=== PATIENT | male | born 1955 | race Caucasian/White ===

== ENCOUNTER 2017-01-24 07:18 | Emergency (ER) | payer OTHER ==
[2017-01-24] VITALS (7 sets, daily range): BP systolic 108–137; BP diastolic 61–71; PULSE 70–107; RESP 19–20; TEMP 97.8–98.1; O2SAT 98
[~2017-01-24] VITALS: Ht 182.9 cm; Wt 90.0 kg
[~2017-01-24 07:18] MED LIST: AMLO2.5T PO; ATOR20TA PO; ECOT81TA2 PO; FLON0.053 EACH NARE; GLIP5TAB8 PO; LIPI20TA PO; METO25 PO; MULTLIQ PO; NITR0.4S SL; SITA50TA4 PO; TRIBTAB3; ULTR50TA PO
[2017-01-24] MEDS ORDERED: ACETAMINOPHEN 500 MG CPLT PO ONE (07:30)
[2017-01-24] MEDS ORDERED: ASPIRIN 81 MG CHEW TAB PO ONE (07:30)
[2017-01-24] MEDS ORDERED: SODIUM CHLORIDE 0.9% FLUSH 10 ML FLUSH IVF PRN (07:30)
--- NOTE | 2017-01-24 07:37 | PD ---
HPI Chief Complaint: Chest Pain Time Seen by Provider: 07:30 Travel History International Travel<30 days: No Contact w/Intl Traveler<30days: No Traveled to known affect area: No History of Present Illness HPI Patient is a 61-year-old male with history of HTN, HLD, DM, CAD status post 3 vessel CABG approximately 2 years ago here with complaint of chest pain. Patient states he woke this morning at 6 AM at his usual time with left-sided substernal, inframammary chest pressure. No radiation. Some slight shortness of breath. No lightheadedness, but does have a mild headache, slight nausea. Patient took nitroglycerin 1 at home and states that this seemed to bring the headache gone. Patient has not taken any aspirin prior to arrival. He has not had a cardiac catheter since his CABG 3 years ago, but did reportedly have a stress test just this past Thursday01/20/[address] official [address] Stephen. Patient does not know the results of this, but was told by office staff that it was normal. PFSH Past Medical History Anxiety: No Depression: No Cancer: No Cardiovascular Problems: Yes High Cholesterol: Yes Diabetes: Yes Patient Takes Glucophage: No Diminished Hearing: No Endocrine: Yes GERD: No Genitourinary: No Hiatal Hernia: No Hypertension: Yes Immune Disorder: No Musculoskeletal: No Neurologic: No Psychiatric: No Reproductive: No Respiratory: No Ulcer: No Past Surgical History Coronary Artery Bypass Graft: Yes Tonsillectomy: Yes (AGE 5) Social History Alcohol Use: No (OCC BEER) Tobacco Use: No (QUIT OVER 20 YRS AGO) Substance Use: No Allergies-Medications (Allergen,Severity, Reaction): Coded Allergies: No Known Allergies (Verified , 04/02/15) Uncoded Allergies: ENVIRONMENTAL (Allergy, Intermediate, 12/10/08) Reported Meds & Prescriptions Reported Meds & Active Scripts Active Reported Invokana (Canagliflozin) 300 Mg Tab 300 Mg PO DAILY Take before 1st meal of day. Atorvastatin (Atorvastatin Calcium) 80 Mg Tab 80 Mg PO HS Metoprolol Tartrate 25 Mg Tab 25 Mg PO BID Lisinopril 20 Mg Tab 20 Mg PO DAILY Nitrostat SL (Nitroglycerin) 0.4 Mg Subl 0.4 Mg SL ONCE Janumet Xr (Sitagliptin-Metformin ER) 50-1,000 Mg Tab 1 Tab PO DAILY Imiquimod 5 % Cre Trulicity Inj (Dulaglutide Inj) 1.5 Mg/0.5 Ml Pen 1.5 Mg SQ Q7D Review of Systems Except as stated in HPI: all other systems reviewed are Neg Physical Exam Narrative GENERAL: Well-appearing male in no acute distress SKIN: Focused skin assessment warm/dry. Midline sternotomy scar HEAD: Normocephalic. EYES: No scleral icterus. No injection or drainage. ENT: Mucous membranes pink and moist. NECK: Supple CARDIOVASCULAR: Regular rate and rhythm. No murmur appreciated. No reproducible tenderness to palpation in the chest wall RESPIRATORY: No accessory muscle use. Clear to auscultation. Breath sounds equal bilaterally. GASTROINTESTINAL: Abdomen soft, non-tender, nondistended. MUSCULOSKELETAL: Trace BLE edema, chronic per patient NEUROLOGICAL: Awake and alert. Normal speech. PSYCHIATRIC: Appropriate mood and affect; insight and judgment normal. Data Data Last Documented VS Vital Signs Date Time Temp Pulse Resp B/P Pulse Ox O2 Delivery O2 Flow Rate FiO2 01/24/17 09:26 70 109/61 01/24/17 07:35 19 01/24/17 07:32 Nasal Cannula 2 01/24/17 07:24 98.1 01/24/17 07:21 98 Orders Electrocardiogram (01/24/17 07:30) Basic Metabolic Panel (Bmp) (01/24/17 07:30) Ckmb (Isoenzyme) Profile (01/24/17 07:30) Complete Blood Count With Diff (01/24/17 07:30) Magnesium (Mg) (01/24/17 07:30) Prothrombin Time / Inr (Pt) (01/24/17 07:30) Act Partial Throm Time (Ptt) (01/24/17 07:30) Troponin I (01/24/17 07:30) Chest, Single Ap (01/24/17 07:30) Ecg Monitoring (01/24/17 07:30) Bilateral Bp Monitoring (01/24/17 07:30) Iv Access Insert/Monitor (01/24/17 07:30) Oximetry (01/24/17 07:30) Aspirin Chew (Aspirin Chew) (01/24/17 07:30) Sodium Chloride 0.9% Flush (Ns Flush) (01/24/17 07:30) Nitroglycerin Sl (Nitrostat Sl) (01/24/17 07:30) Acetaminophen (Tylenol) (01/24/17 07:30) CKMB (01/24/17 07:35) CKMB% (01/24/17 07:35) Electrocardiogram (01/24/17 09:35) Ckmb (Isoenzyme) Profile (01/24/17 09:35) Troponin I (01/24/17 09:35) Labs Laboratory Tests Test 01/24/17 01/24/17 01/24/17 07:35 08:25 09:15 White Blood Count 9.8 TH/MM3 Red Blood Count 4.80 MIL/MM3 Hemoglobin 13.8 GM/DL Hematocrit 40.7 % Mean Corpuscular Volume 84.8 FL Mean Corpuscular Hemoglobin 28.8 PG Mean Corpuscular Hemoglobin 34.0 % Concent Red Cell Distribution Width 14.0 % Platelet Count 233 TH/MM3 Mean Platelet Volume 8.8 FL Neutrophils (%) (Auto) 59.8 % Lymphocytes (%) (Auto) 24.7 % Monocytes (%) (Auto) 7.9 % Eosinophils (%) (Auto) 6.7 % Basophils (%) (Auto) 0.9 % Neutrophils # (Auto) 5.9 TH/MM3 Lymphocytes # (Auto) 2.4 TH/MM3 Monocytes # (Auto) 0.8 TH/MM3 Eosinophils # (Auto) 0.7 TH/MM3 Basophils # (Auto) 0.1 TH/MM3 CBC Comment DIFF FINAL Differential Comment Sodium Level 139 MEQ/L Potassium Level 4.8 MEQ/L Chloride Level 105 MEQ/L Carbon Dioxide Level 24.5 MEQ/L Anion Gap 10 MEQ/L Blood Urea Nitrogen 18 MG/DL Creatinine 0.99 MG/DL Estimat Glomerular Filtration 77 ML/MIN Rate Random Glucose 106 MG/DL Calcium Level 8.7 MG/DL Magnesium Level 1.8 MG/DL Total Creatine Kinase 267 U/L 174 U/L Creatine Kinase MB 2.8 NG/ML Troponin I LESS THAN 0.02 LESS THAN 0.02 NG/ML NG/ML Prothrombin Time 10.6 SEC Prothromb Time International 1.0 RATIO Ratio Activated Partial 25.4 SEC Thromboplast Time MDM Medical Decision Making Medical Screen Exam Complete: Yes Emergency Medical Condition: Yes Medical Record Reviewed: Yes Differential Diagnosis 61-year-old male with history of HTN, HLD, DM, CAD status post 3 vessel CABG approximately 2 years ago here with complaint of chest pain. Differential includes ACS, stable angina, atypical chest pain, anxiety, GERD, and less likely PE or dissection. Narrative Course Patient placed on monitor, IV established and blood obtained. A twelve-lead EKG shows sinus rhythm, Q waves in anteroseptal leads V1 through V3, small Q waves in 3, aVF. Comparing today's EKG with his most recent EKG from January 2015, these findings are unchanged. Patient given aspirin, nitroglycerin, Tylenol for headache. CBC, BMP, magnesium, CK-MB, troponin, coags obtained and unremarkable. Portable chest x-ray obtained that by my read shows no acute abnormalities. I spoke with Dr. Ho, who is on-call for patient's building official Dr. Stephen. She agrees given his negative stress tests, which she confirmed, just 5 days ago to obtain repeat 2 hour EKG and cardiac enzymes and discharge to home if negative. Repeat EKG, troponin is unchanged. Diagnosis Primary Impression: Atypical chest pain Referrals: Scooby Nunez MD 2 days Call on Thursday for follow-up appointment Additional Instructions: Follow-up with Dr. Nunez on Thursday for follow-up appointment. Med/Other Pt SpecificInfo: No Change to Meds Disposition: 01 DISCHARGE HOME Condition: Stable Judith Mckeon MD January 24, 2017 07:37
[2017-01-24] MEDS ORDERED: ATOR1TAB18 PO (07:39)
[2017-01-24] MEDS ORDERED: NITR0.4S SL (07:39)
[2017-01-24] MEDS ORDERED: CANA300T PO (07:39)
[2017-01-24] MEDS ORDERED: IMIQ5CRE (07:39)
[2017-01-24] MEDS ORDERED: DULA0.5I SQ (07:39)
[2017-01-24] MEDS ORDERED: LISI-515 PO (07:39)
[2017-01-24] MEDS ORDERED: METO25TA3 PO (07:39)
[2017-01-24] MEDS ORDERED: SITA50TA4 PO (07:39)
[2017-01-24 07:49] LABS: AUTOMATED NEUTROPHIL # 5.9 TH/MM3 (1.8-7.7); BASOPHIL # 0.1 TH/MM3 (0-0.2); BASOPHIL % 0.9 % (0.0-2.0); EOSINOPHIL # 0.7 TH/MM3 (0-0.4); EOSINOPHIL % 6.7 % (0.0-4.0); HEMATOCRIT 40.7 % (39.0-51.0); HEMO FLAGS DIFF FINAL; LYMPH % 24.7 % (9.0-44.0); LYMPHOCYTE # 2.4 TH/MM3 (1.0-4.8); MEAN CELL VOLUME 84.8 FL (80.0-100.0); MEAN CORPUSCULAR HEMOGLOBIN 28.8 PG (27.0-34.0); MONO % 7.9 % (0.0-8.0); NEUT % 59.8 % (16.0-70.0); PLATELET COUNT 233 TH/MM3 (150-450); WHITE BLOOD COUNT 9.8 TH/MM3 (4.0-11.0)
[2017-01-24] MEDS: NITROGLYCERIN 0.4 MG SL 25 TABS/BTL SL SCH ×3 (07:56→08:27)
--- NOTE | 2017-01-24 08:00 | RADRPT ---
EXAM DATE/TIME: 01/24/2017 07:40 [facility] COMPARISON: CHEST SINGLE AP, January 07, 2015, 12:11. INDICATIONS : Chest Pain MEDICAL HISTORY : Myocardial infarction. SURGICAL HISTORY : CABG. ENCOUNTER: Initial ACUITY: 1 day PAIN SCORE: 6/10 LOCATION: Bilateral chest FINDINGS: Single AP view of the chest. Median sternotomy wires are present. The lungs are clear. Cardiomediasti nal silhouette within normal limits. No evidence of pleural effusion or pneumothorax. CONCLUSION: No acute cardiopulmonary disease identified. Gadiel Galindo MD on January 24, 2017 at 7:54 Board Certified Radiologist. This report was verified electronically.
[2017-01-24 08:15] LABS: ANION GAP 10 MEQ/L (5-15); BICARBONATE 24.5 MEQ/L (21.0-32.0); BLOOD UREA NITROGEN 18 MG/DL (7-18); CHLORIDE 105 MEQ/L (98-107); CREATINE KINASE 267 U/L (39-308); GLOMERULAR FILTRATION RATE 77 ML/MIN (>89); MAGNESIUM 1.8 MG/DL (1.5-2.5); POTASSIUM 4.8 MEQ/L (3.5-5.1); SODIUM (NA) 139 MEQ/L (136-145)
[2017-01-24 08:27] LABS: CKMB 2.8 NG/ML (0.5-3.6)
[2017-01-24 08:55] LABS: APTT (PATIENT) 25.4 SEC (24.3-30.1); PROTHROMBIN TIME - PATIENT 10.6 SEC (9.8-11.6)
[2017-01-24 09:54] LABS: CREATINE KINASE 174 U/L (39-308)
--- NOTE | 2017-01-24 16:07 | EKG ---
Date Performed: 01/24/2017 Time Performed: 07:28:15 PTAGE: 61 years EKG: Sinus rhythm POSSIBLE RIGHT VENTRICULAR HYPERTROPHY POSSIBLE INFERIOR MYOCARDIAL INFARCTION ANTEROSEPTAL MYOCARDI AL INFARCTION Compared to previous tracing, the patient now has septal Q waves potentially consistent with septal [place], age indeterminate ABNORMAL ECG NO PREVIOUS TRACING DOCTOR: Bertha Ho Interpretating Date/Time 01/24/2017 16:05:45
--- NOTE | 2017-01-24 16:07 | EKG ---
Date Performed: 01/24/2017 Time Performed: 09:12:00 PTAGE: 61 years EKG: Sinus rhythm MARKED RIGHT AXIS DEVIATION PROBABLE INFERIOR MYOCARDIAL INFARCTION ANTEROSEPTAL MYOCARDIAL INFARCTI ON Compared to prior tracing no significant change ABNORMAL ECG INTERPRETATION BASED ON A DEFAULT AGE OF 40 YEARS PREVIOUS TRACING : 01/05/2015 05.00 DOCTOR: Bertha Ho Interpretating Date/Time 01/24/2017 16:05:54
== END 2017-01-24 10:53 | disposition home or self-care (01) ==
LOC: NEPC 07:18
DX: R07.89 Other chest pain (principal); I10 Essential (primary) hypertension; E11.9 Type 2 diabetes mellitus without complications; Z79.84 Long term (current) use of oral hypoglycemic drugs; Z79.899 Other long term (current) drug therapy; Z87.891 Personal history of nicotine dependence; Z95.1 Presence of aortocoronary bypass graft
CPT/HCPCS: 71010; 80048; 82550; 82552; 83735; 84484; 85025; 85610; 85730; 93005

== ENCOUNTER 2017-08-05 06:35 | Day surgery (SDC) | payer OTHER ==
[~2017-08-05] VITALS: Ht 182.9 cm; Wt 94.4 kg
[2017-08-05] VITALS (9 sets, daily range): BP systolic 128–144; BP diastolic 75–84; PULSE 67–88; RESP 16–18; TEMP 97.8–98.6; O2SAT 95–97
[~2017-08-05 06:35] MED LIST changes: -AMLO2.5T PO; -ATOR20TA PO; +ATOR80TA45 PO; +CANA300T PO; +DULA0.5I SQ; -ECOT81TA2 PO; -FLON0.053 EACH NARE; -GLIP5TAB8 PO; +IMIQ5CRE; -LIPI20TA PO; +LISI-515 PO; -METO25 PO; +METO25TA3 PO; -MULTLIQ PO; -TRIBTAB3; -ULTR50TA PO
[2017-08-05] MEDS ORDERED: IOHEXOL 350 MG/ML 50 ML BTL (for Cath Lab) OTHER ONE (06:36)
[2017-08-05] MEDS ORDERED: IOHEXOL 350 MG/ML 100 ML BTL (for Cath Lab) OTHER ONE (06:36)
[2017-08-05] MEDS: NS 1000P @30 MLS/HR (KVO) IV SCH (07:00)
[2017-08-05] MEDS ORDERED: MONT10TA4 PO (07:32)
[2017-08-05] MEDS ORDERED: LOSA25TA PO (07:32)
[2017-08-05] MEDS ORDERED: ASPI81TA23 PO (07:32)
[2017-08-05] MEDS ORDERED: MELO15TA20 PO (07:32)
[2017-08-05 07:47] LABS: AUTOMATED NEUTROPHIL # 4.7 TH/MM3 (1.8-7.7); BASOPHIL # 0.1 TH/MM3 (0-0.2); BASOPHIL % 1.3 % (0.0-2.0); EOSINOPHIL # 0.4 TH/MM3 (0-0.4); EOSINOPHIL % 4.5 % (0.0-4.0); HEMATOCRIT 43.5 % (39.0-51.0); HEMO FLAGS DIFF FINAL; LYMPH % 27.2 % (9.0-44.0); LYMPHOCYTE # 2.2 TH/MM3 (1.0-4.8); MEAN CELL VOLUME 86.5 FL (80.0-100.0); MEAN CORPUSCULAR HEMOGLOBIN 28.6 PG (27.0-34.0); MEAN CORPUSCULAR HGB CONC 33.1 % (32.0-36.0); MONO % 8.7 % (0.0-8.0); NEUT % 58.3 % (16.0-70.0); PLATELET COUNT 205 TH/MM3 (150-450); RED BLOOD COUNT 5.03 MIL/MM3 (4.50-5.90); RED CELL DISTRIBUTION WIDTH 14.2 % (11.6-17.2); WHITE BLOOD COUNT 8.1 TH/MM3 (4.0-11.0)
[2017-08-05 07:55] LABS: APTT (PATIENT) 26.8 SEC (24.3-30.1); INTERNATIONAL NORMALIZED RATIO 0.9 RATIO; PROTHROMBIN TIME - PATIENT 10.3 SEC (9.8-11.6)
[2017-08-05] MEDS ORDERED: HEPARIN-NS/PF INJ 1,000 ML ONE ×2 (08:19→09:32)
[2017-08-05] MEDS ORDERED: MIDAZOLAM HCL 2 MG/2 ML VIAL ONE (08:19)
[2017-08-05 08:20] LABS: BICARBONATE 28.7 MEQ/L (21.0-32.0); POTASSIUM 4.1 MEQ/L (3.5-5.1)
[2017-08-05] MEDS ORDERED: HEPARIN SODIUM - IV 10,000 UNITS/10 ML VIAL ONE (08:48)
[2017-08-05] MEDS ORDERED: NITROGLYCERIN INJ 5 ML ONE (08:48)
[2017-08-05] MEDS ORDERED: TICAGRELOR 90 MG TAB PO ONE (09:49)
--- NOTE | 2017-08-05 10:25 | CATHPROC ---
[employer] HIS Report Study Information Study Number Admission Scheduled Start Study Start [id number] Aug 05 2017 6:35AM 08/05/2017 Aug 05 2017 8:15AM [place] Service Cardiac Catheterization Admit Source Facility Department Other [facility] Physician and Clinical Staff Initial Rosales Mars Cutter V Groove Latisha Storm,PARMINDER Recorder Mac Nice RCIS(BS) Scrub Douglas RodriguezRT(R) Procedures Performed Procedure Location (Site) Vessel Name Coronary Angiograms LCA Left Coronary Coronary Angiograms RCA Right Coronary Coronary Angiograms CHIN-LAD Left Coronary Coronary Angiograms SVG-PDA Right Coronary Coronary Angiograms Gft. 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 FR 5 [id number] *[id number] Used MICROPUNCTURE, STIFFENED [id number] *[id number] 534-520T *[id number] 538-417 *[id number] 534-521T *[id number] *[id number] ENDOVASCULAR WIRE, SPIDERFX 4.0 X [id number] 09:20 40 X 320CM Used COMPANY 320/190CM *[id number] 08:23 Unified Office INDUSTRIES PACK, CCL CUSTOM * Used *[id number] 09:22 MEDTRONIC BALLOON, 2.0 X 10MM EUPHORA 10MM Used *[id number] BALLOON, 2.75 X 15MM NC [id number] 09:49 MEDTRONIC 15MM Used EUPHORA *[id number] 08:55 MEDTRONIC IM DXTERITY CATHETER FR 5 [id number] Used 09:43 MEDTRONIC STENT, 2.5 22MM KAL 2.5 22MM [id number] Used [id number] 09:28 Cash Check Card MEDICAL 30 REYNA INDEFLATOR Used *[id number] 08:23 ReTenant WIRE, 3MMJ .035 180CM 180CM Used *[id number] 08:55 Cash Check Card MEDICAL WIRE, EXCHANGE 260CM 3MMJ 260CM Used *[id number] 08:23 NAMIC MANIFOLD, 4 PORT * Used *[id number] 08:23 NYCOMED OMNIPAQUE, 350 MG, 150ML 150ML [id number] Used [id number] 08:23 GRAFF MEDICAL BLANKET,WARM AIR CCL * Used *[id number] 08:40 TERUMO MEDICAL SHEATH, FR5 TERUMO (10CM) FR 5 Used *[id number] 09:14 TERUMO MEDICAL SHEATH, FR6 TERUMO (10CM) FR 6 Used *[id number] Equipment Model, Serial, Lot Number and Expiration Data Description Model Number Serial Number Lot Number Expiration Date STENT, 2.5 22MM KAL [id number] 05-22-2019 History: Current Medications Medication Dosage/Unit Route Frequency Last Date/Time Taken ASA Beta Maximino Statins (any) History: Allergies Allergy Reaction No Known Allergies ENVIRONMENTAL History: Risk Factors Family History of Hypertension Dyslipidemia Previous [facility] Previous Heart Failure Premature CAD Yes Yes No No No Prior Valve Prior PCI Prior CABG Prior CABGDate Surgery No No Yes 09/07/2014 Cerebrovascular Peripheral Artery Chronic Lung On Dialysis Diabetes Disease Disease Disease No No No No No History: Symptoms/Diagnosis Selection Items Angina-unstable History: Stress Tests Stress or Imaging Studies Performed Yes Standard Exercise Stress Test No Stress Echo No Stress Test SPECT Stress Test SPECT Result Yes Negative Stress Test CMR No Cardiac CTA Coronary Calcium Score No No History: Other Current Smoker No Labs Hgb (g/dl) Hct (%) RBC (MIL/MM3) WBC (l/cumm) Platelets (thousands) 11.60-17.00 35.00-51.00 4.00-5.90 4.00-11.00 150.00-450.00 14.4 43.5 5 8.1 205 Glucose (mg/dl) BUN (mg/dl) Creatinine (mg/dl) BUN:Creatinine (1:x) 74.00-106.00 7.00-18.00 0.50-1.30 10.00-20.00 101 22 0.9 24.4 Na (meq/l) K (meq/l) 136.00-145.00 3.50-5.10 138 4.1 INR (PTT:PT) 0.90-1.10 0.9 CPK-MB (ng/ML) 0.50-3.60 Not Drawn Medication Medication Total Dose (Bolus/Oral) Medication Total Dosage/Unit 1% XYLOCAINE 20 mL BRILINTA 180 mg FENTANYL 125 mcg HEPARIN 7800 units NTG (IC) 700 mcg VERSED 1 mg Medications (Bolus/Oral) Medication Time Given Dosage/Unit Administered By Reason VERSED 08/05/2017 8:35:00 AM 0.5 mg Adamy, Latisha 0.5 mg VERSED given in lab by Latisha Storm RN in Left Antecubital via Peripheral IV. Ordered by Rosales Funez FENTANYL 08/05/2017 8:36:16 AM 50 mcg Adamy, Latisha 50 mcg FENTANYL given in lab by Latisha Storm RN in Left Antecubital via Peripheral IV. Ordered by Rosales Gallardo 1% XYLOCAINE 08/05/2017 8:38:20 AM 20 mL Rosales Gallardo 20 mL 1% XYLOCAINE given in lab by Rosales Gallardo in Right Groin via Subcutaneous. Ordered by Rosales Mulligan FENTANYL 08/05/2017 8:56:02 AM 50 mcg Adamy, Latisha 50 mcg FENTANYL given in lab by Latisha Storm RN in Left Antecubital via Peripheral IV. Ordered by Rosales Gallardo HEPARIN 08/05/2017 9:15:42 AM 6800 units Emeterio, Latisha 6800 units HEPARIN given in lab by Latisha Storm RN in Left Antecubital via Peripheral IV. Ordered by Rosales Gallardo VERSED 08/05/2017 9:32:25 AM 0.5 mg Adamy, Latisha 0.5 mg VERSED given in lab by Latisha Storm RN in Left Antecubital via Peripheral IV. Ordered by Rosales Funez FENTANYL 08/05/2017 9:33:00 AM 25 mcg Adamy, Latisha 25 mcg FENTANYL given in lab by Latisha Storm RN in Left Antecubital via Peripheral IV. Ordered by Rosales Gallardo NTG (IC) 08/05/2017 9:38:54 AM 100 mcg Rosales Gallardo 100 mcg NTG (IC) given in lab by Rosales Gallardo via Intra-coronary. Ordered by Rosales Gallardo HEPARIN 08/05/2017 9:45:00 AM 1000 units Latisha Storm 1000 units HEPARIN given in lab by Latisha Storm, RN in Left Antecubital via Peripheral IV. Ordered by Rosales Gallardo NTG (IC) 08/05/2017 9:46:51 AM 200 mcg Rosales Gallardo 200 mcg NTG (IC) given in lab by Rosales Gallardo via Intra-coronary. Ordered by Rosales Gallardo NTG (IC) 08/05/2017 9:53:35 AM 200 mcg Rosales Gallardo 200 mcg NTG (IC) given in lab by Rosales Gallardo via Intra-coronary. Ordered by Rosales Gallardo NTG (IC) 08/05/2017 9:57:00 AM 200 mcg Rosales Gallardo 200 mcg NTG (IC) given in lab by Rosales Gallardo via Intra-coronary. Ordered by Rosales Gallardo. BRILINTA 08/05/2017 9:58:23 AM 180 mg Latisha Storm 180 mg BRILINTA given in lab by Latisha Storm, PARMINDER via Oral. Ordered by Rosales Gallardo Medication (Drip) Medication Time Given Dosage/Unit Concentration/Unit Diluent (ml) Solution IV Solutions 08/05/2017 8:29:36 AM 0 mL (IV) 500 NaCl .9 Patient arrived on IV Solutions in Left Antecubital via Peripheral IV. Pump/Drip Flow = 20 ml/hr usin g NaCl .9. Ordered by Rosales Gallardo Initial Case Assessment Cardiovascular HR Rhythm NIBP Chest Pain 65 SR W AV BLOCK 129/74 0 Edema Present Skin color Skin None Normal Warm Dry Circulatory - Right Pulses Dorsalis Pedis Femoral 2 2 Scale (0,1,2,3,4,d) Circulatory - Left Pulses Dorsalis Pedis Femoral 2 2 Scale (0,1,2,3,4,d) Circulatory - Lower Extremities Color Lower Right Color Lower Left Normal Normal Neurological State Oriented to time-place- Alert Moves all extremities person Respiration - General Respiration Rate SpO2 (%) (B/min) 8 97 Final Case Assessment Cardiovascular HR Rhythm NIBP Chest Pain 66 SR W AV BLOCK 132/84 0 Edema Present Skin color Skin None Normal Warm Dry Circulatory - Right Pulses Dorsalis Pedis Femoral 2 2 Scale (0,1,2,3,4,d) Circulatory - Left Pulses Dorsalis Pedis Femoral 2 2 Scale (0,1,2,3,4,d) Circulatory - Lower Extremities Color Lower Right Color Lower Left Normal Normal Neurological State Oriented to time-place- Alert Moves all extremities person Respiration - General Respiration Rate SpO2 (%) (B/min) 8 97 Chronological Log Time Study Chronological Log 8:15:10 Patient arrived via Bed. 8:15:11 Patient Name, D.O.B, / Armband Verified By R.N. 8:15:12 Consent signed by the physician and the patient and verified by the [facility] staff. 8:15:12 Pre-op and post- op instructions given; patient acknowledges understanding of instructions. 8:15:14 Verbal Stimulation=2 Physical Stimulation=2 Airway=2 Respiration=2 TOTAL=8. (0=absent, 1=li mited, 2=present) 8:15:16 Patient has been NPO for More than 6Hrs. 8:15:18 Skin Breakdown- 8:15:19 Patient Warmer Placed on the Table. Vitals capture started with the following parameters, Patient=Adult, Interval=5 min, Initial Pr kqtzxz=972 mmHg, 8:15:22 Deflation Rate=5 mmHg, Cuff placed on Left Arm 8:16:01 DVHA=865/78 mmhg, SpO2=96.0 %, Pain=0, Elian=10, Michelle=2 8:19:55 Reference ECG taken 8:20:58 HR=67 bpm, IBNG=234/79 mmhg, SpO2=95.0 %, Resp=10 B/min, Pain=0, Elian=10, Michelle=2 8:25:59 HR=66 bpm, RVWS=262/74 mmhg, SpO2=97.0 %, Resp=8 B/min, Pain=0, Elian=10, Michelle=2 8:27:59 Pressure channel 1 zeroed. 8:28:26 Bilateral groins prepped with 2% chlorhexidine, and draped after a 3 minute waiting time. 8:29:35 A # 20 IV was noted in the Antecubital (left). Grade = 0 Patient arrived on IV Solutions in Left Antecubital via Peripheral IV. Pump/Drip Flow = 20 ml/hr using NaCl .9. Ordered 8::36 by Rosales Gallardo 8::38 History and physical on the chart or being dictated. Assessment: Initial Case, HR=65 BPM, Rhythm=SR W AV BLOCK, YOLM=777/74 mmhg, Chest Pain=0, Edema =None, Color=Normal, Skin = Warm, Dry Right Pulses: Patrick Ped=2, Femoral=2 Left Pulses: Patrick Ped=2, Femoral=2 8:29:39 Lower Right Extremities: Color=Normal Lower Left Extremities: Color=Normal Neurological: State=Alert, Ox3, MARIO Respiration: Resp=8 B/min, SpO2=97 % 8:30:30 MD paged 8:31:00 HR=63 bpm, ZXSD=453/74 mmhg, SpO2=97.0 %, Resp=9 B/min, Pain=0, Elian=10, Michelle=2 8:33:00 MD arrived. 0.5 mg VERSED given in lab by Latisha Storm, RN in Left Antecubital via Peripheral IV. Ordered by Rosales Gallardo 8:35:00 G. Time Out. Correct patient, correct procedure, correct physician, power injector not loaded with contrast with surgical 8:35:10 team present. Time Out Concurred by MD and individual staff in procedure. 8:35:27 Case Start 8:36:02 HR=68 bpm, XNZF=845/80 mmhg, SpO2=96.0 %, Resp=9 B/min, Pain=0, Elian=10, Michelle=2 50 mcg FENTANYL given in lab by Latisha Storm, RN in Left Antecubital via Peripheral IV. Order ed by Sami 8:36:16 Rosales Zapata. 20 mL 1% XYLOCAINE given in lab by Rosales Gallardo in Right Groin via Subcutaneous. Ordered by Sami 8:38:20 Rosales Zapata. 8:38:27 Access site was Right Femoral Artery. A INTRODUCER SET, MICROPUNCTURE, STIFFENED FR 5 was advanced into the Fem Art (right) using the 8:38:33 Percutaneous technique. 8:38:51 A SHEATH, FR5 TERUMO (10CM) FR 5 was exchanged in the Fem Art (right). This was necessary in order ~REASON~. Recorded Pressure: Ao, HR=69, Condition=Condition 1 8:39:49 (Aorta) Ao 132/71/93 8:40:03 An injection in the Fem Art (right) was made through the SHEATH, FR5 TERUMO (10CM) FR 5. A JR 4.0 INFINITI CATHETER FR 5 was advanced over a wire. OMNIPAQUE, 350 MG, 150ML 150ML was use d for 8:40:14 injections. 8:41:01 HR=68 bpm, YBNH=344/77 mmhg, SpO2=95.0 %, Resp=13 B/min, Pain=0, Elian=10, Michelle=2 Recorded Pressure: LV, HR=73, Condition=Condition 1 8:41:47 (Left Ventricle) LV 126/6/16 Recorded Pressure: LV, Ao, HR=60, Condition=Condition 1 8:42:06 (Left Ventricle) LV 127/7/17, (Aorta) Ao 121/52/91 8:42:22 The RCA was injected and visualized at various angles. OMNIPAQUE, 350 MG, 150ML 150ML used. Recorded Pressure: Ao, HR=68, Condition=Condition 1 8:42:37 (Aorta) Ao 127/78/100 8:45:58 HR=68 bpm, SIJT=158/79 mmhg, SpO2=95.0 %, Resp=9 B/min, Pain=0, Elian=10, Michelle=2 8:46:43 The SVG-PDA was injected and visualized at various angles. OMNIPAQUE, 350 MG, 150ML 150ML ed. 8:51:03 HR=66 bpm, MXFN=499/75 mmhg, SpO2=95.0 %, Resp=13 B/min, Pain=0, Elian=10, Michelle=2 8:52:34 The CHIN-LAD was injected and visualized at various angles. OMNIPAQUE, 350 MG, 150ML 150ML u sed. After removing the current catheter a IM DXTERITY CATHETER FR 5 was advanced over a WIRE, 3MMJ . 035 180CM 8:53:45 180CM. 50 mcg FENTANYL given in lab by Latisha Storm RN in Left Antecubital via Peripheral IV. Order ed by Sami, 8:56:02 Rosales Duvall 8:56:04 HR=68 bpm, HAMZ=741/75 mmhg, SpO2=96.0 %, Resp=14 B/min, Pain=0, Elian=10, Michelle=2 9:00:59 HR=65 bpm, SWJK=652/81 mmhg, SpO2=97.0 %, Resp=9 B/min, Pain=0, Elian=10, Michelle=2 After removing the current catheter a JL 4.0 INFINITI CATHETER FR 5 was advanced over a WIRE, EX CHANGE 260CM 9:02:00 3MMJ 260CM. After removing the current catheter a JL 4.5 INFINITI CATHETER FR 4 was advanced over a WIRE, 3M MJ .035 180CM 9:04:47 180CM. 9:05:00 The LCA was injected and visualized at various angles. OMNIPAQUE, 350 MG, 150ML 150ML used. 9:06:04 HR=64 bpm, PQXY=453/71 mmhg, SpO2=96.0 %, Resp=0 B/min, Pain=0, Elian=10, Michelle=2 After removing the current catheter a AL 1 INFINITI CATHETER FR 5 was advanced over a WIRE, 3MMJ .035 180CM 9:10:41 180CM. 9:11:07 HR=68 bpm, VVGN=450/76 mmhg, SpO2=96.0 %, Resp=13 B/min, Pain=0, Elian=10, Michelle=2 The SVG TO OM Gft. Stump 1 was injected and visualized at various angles. OMNIPAQUE, 350 MG, 150 ML 150ML 9:14:39 used. 9:15:00 Catheter was removed 6800 units HEPARIN given in lab by Latisha Storm, RN in Left Antecubital via Peripheral IV. Or dered by Sami, 9:15:42 Rosales Duvall A SHEATH, FR6 TERUMO (10CM) FR 6 was exchanged in the Fem Art (right). This was necessary in ord er to 9:15:56 accomodate a larger catheter. 9:16:04 HR=67 bpm, MOLR=044/70 mmhg, SpO2=98.0 %, Resp=18 B/min, Pain=0, Elian=10, Michelle=2 9:21:09 HR=65 bpm, YIJF=097/69 mmhg, SpO2=98.0 %, Resp=8 B/min, Pain=0, Elian=10, Michelle=2 A MPA-1 GUIDE CATHETER FR 6 was advanced over a wire. OMNIPAQUE, 350 MG, 150ML 150ML was used fo r 9:22:19 injections. 9:23:49 A WIRE, ASAHI PROWATER 180CM 180CM was inserted via Fem Art (right). 9:24:01 Interventional wire has crossed the lesion 9:24:32 Activated Clotting Time Drawn 9:26:06 HR=62 bpm, FPSI=933/68 mmhg, SpO2=99.0 %, Resp=8 B/min, Pain=0, Elian=10, Michelle=2 A BALLOON, 2.0 X 10MM EUPHORA 10MM was inserted over WIRE, ASAHI PROWATER 180CM 180CM via the Fe m Art 9::54 (right). A BALLOON, 2.0 X 10MM EUPHORA 10MM over a WIRE, ASAHI PROWATER 180CM 180CM in the OSTIUM OF THE SVG- 9:27:21 PDA was inflated using a 30 REYNA INDEFLATOR at 8 reyna for 10 sec. A BALLOON, 2.0 X 10MM EUPHORA 10MM over a WIRE, ASAHI PROWATER 180CM 180CM in the OSTIUM OF THE SVG- 9:28:20 PDA was inflated using a 30 REYNA INDEFLATOR at 8 reyna for 10 sec. A BALLOON, 2.0 X 10MM EUPHORA 10MM over a WIRE, ASAHI PROWATER 180CM 180CM in the OSTIUM OF THE SVG- 9:28:47 PDA was inflated using a 30 REYNA INDEFLATOR at 8 reyna for 10 sec. 9:29:58 ACT (Normal Range 90-180) = 272 9:30:40 Balloon Removed. 9::54 A WIRE, SPIDERFX 4.0 X 320/190CM 40 X 320CM was inserted via Fem Art (right). 9:31:05 HR=61 bpm, PXZV=537/81 mmhg, SpO2=98.0 %, Resp=15 B/min, Pain=0, Elian=10, Michelle=2 9:31:27 PROWATER Wire removed 0.5 mg VERSED given in lab by Latisha Storm, RN in Left Antecubital via Peripheral IV. Ordered by Rosales Gallardo 9:32:25 G. 25 mcg FENTANYL given in lab by Latisha Storm, RN in Left Antecubital via Peripheral IV. Order ed by Sami, 9:33:00 Rosales Duvall 9:36:04 HR=68 bpm, ZQOI=428/82 mmhg, SpO2=98.0 %, Resp=11 B/min, Pain=0, Elian=10, Michelle=2 A BALLOON, 2.0 X 10MM EUPHORA 10MM was inserted over WIRE, ASAHI PROWATER 180CM 180CM via the Fe m Art 9:37:40 (right). A BALLOON, 2.0 X 10MM EUPHORA 10MM over a WIRE, ASAHI PROWATER 180CM 180CM in the SVG-PDA was in flated 9:37:44 using a 30 REYNA INDEFLATOR at 14 reyna for 10 sec. 9:38:54 100 mcg NTG (IC) given in lab by Rosales Gallardo via Intra-coronary. Ordered by Rosales Gallardo. 9:41:05 HR=65 bpm, GRIZ=770/73 mmhg, SpO2=96.0 %, Resp=14 B/min, Pain=0, Elian=10, Michelle=2 9:42:46 Balloon Removed. A STENT, 2.5 22MM KAL 2.5 22MM was advanced through a MPA-1 GUIDE CATHETER FR 6 over a WIRE, A MONICA 9:44:00 PROWATER 180CM 180CM. 1000 units HEPARIN given in lab by Latisha Storm, PARMINDER in Left Antecubital via Peripheral IV. O rdered by Sami, 9:45:00 Rosales Zapata. A STENT, 2.5 22MM KAL 2.5 22MM was deployed using a 30 REYNA INDEFLATOR at 16 atmospheres for 30 seconds in 9:45:42 the SVG-PDA. 9:46:00 Delivery device removed 9:46:06 HR=66 bpm, HCWH=552/73 mmhg, SpO2=96.0 %, Resp=0 B/min, Pain=0, Elian=10, Michelle=2 9:46:51 200 mcg NTG (IC) given in lab by Rosales Gallardo via Intra-coronary. Ordered by Rosales Gallardo. Recorded Pressure: Ao, HR=72, Condition=Condition 1 9:48:25 (Aorta) Ao 125/79/100 9:51:05 HR=62 bpm, QGMX=889/79 mmhg, SpO2=97.0 %, Resp=16 B/min A BALLOON, 2.75 X 15MM NC EUPHORA 15MM was inserted over WIRE, ASAHI PROWATER 180CM 180CM via t he Fem 9:51:54 Art (right). A BALLOON, 2.75 X 15MM NC EUPHORA 15MM over a WIRE, ASAHI PROWATER 180CM 180CM in the SVG-PDA w as 9:52:07 inflated using a 30 REYNA INDEFLATOR at 8 reyna for 15 sec. A BALLOON, 2.75 X 15MM NC EUPHORA 15MM over a WIRE, ASAHI PROWATER 180CM 180CM in the SVG-PDA w as 9:52:21 inflated using a 30 REYNA INDEFLATOR at 12 reyna for 15 sec. 9:52:33 Balloon Removed. 9:53:35 200 mcg NTG (IC) given in lab by Rosales Gallardo via Intra-coronary. Ordered by Rosales Gallardo 9:56:09 HR=63 bpm, NDMG=652/69 mmhg, SpO2=97.0 %, Resp=13 B/min, Pain=0, Elian=10, Michelle=2 9:57:00 200 mcg NTG (IC) given in lab by Rosales Gallardo via Intra-coronary. Ordered by Rosales Gallardo 9:58:23 180 mg BRILINTA given in lab by Latisha Storm RN via Oral. Ordered by Rosales Gallardo . 10:01:08 HR=65 bpm, DRYU=432/74 mmhg, SpO2=96.0 %, Resp=7 B/min, Pain=0, Elian=10, Michelle=2 10:04:23 Wire removed 10:04:24 Wire removed 10:04:26 Catheter was removed 10:04:29 Activated Clotting Time Drawn 10:05:35 Case End 10:06:09 HR=67 bpm, GZTT=801/84 mmhg, SpO2=96.0 %, Resp=11 B/min, Pain=0, Elian=10, Michelle=2 Assessment: Final Case, HR=66 BPM, Rhythm=SR W AV BLOCK, GOFW=904/84 mmhg, Chest Pain=0, Edema= None, Color=Normal, Skin = Warm, Dry Right Pulses: Patrick Ped=2, Femoral=2 Left Pulses: Patrick Ped=2, Femoral=2 10:06:36 Lower Right Extremities: Color=Normal Lower Left Extremities: Color=Normal Neurological: State=Alert, Ox3, MARIO Respiration: Resp=8 B/min, SpO2=97 % 10:07:07 In the Fem Art (right) the SHEATH, FR6 TERUMO (10CM) FR [address] by Douglas Rodriguez RT(R). 10:07:21 ACT (Normal Range 90-180) = 231 10:09:10 Sterile dressing applied to site 10:09:11 No case complications noted. 10:09:12 Cine recording checked. 10:11:14 Vitals capture stopped. 10:13:09 Holding Area notified of successful intervention. 10:13:13 Implantable Device card placed in patient's chart. 10:13:14 Contrast Scanned 10:13:17 A Left Heart Cath was performed. 10:13:18 Patient moved to [facility] End Study - Contrast Media Used In Study Contrast Total Opened (mL) Total Used (mL) Total Wasted (mL) Omnipaque 225 225 0 End Study - Maximum Contrast Load Max Contrast Load (mL) 525.0 End Study - Radiation Exposure Fluoro Time (minutes) 25.5 End Study - Patient Disposition Complications Transferred To Interventional Outcome No Telemetry Bed successful
[2017-08-05] MEDS ORDERED: SODIUM CHLOR 0.9% 1000 ML INJ 1,000 ML IV SCH (11:04)
[2017-08-05] MEDS ORDERED: MORPHINE SULFATE 4 MG/ML INJ IV PUSH PRN (11:15)
[2017-08-05] MEDS ORDERED: NITROGLYCERIN 0.4 MG SL 25 TABS/BTL SL SCH (11:15)
[2017-08-05] MEDS ORDERED: NON-FORMULARY DRUG (Dulaglutide Inj (Trulicity Inj) 1.5 MG) SQ SCH (11:15)
[2017-08-05] MEDS ORDERED: ACETAMINOPHEN 325 MG TAB PO PRN (11:15)
[2017-08-05] MEDS ORDERED: MISC INFORMATION XX ONE (11:15)
[2017-08-05] MEDS ORDERED: oxyCODONE/ACETAMINOPHEN 5 MG/325 MG TAB PO PRN (11:15)
[2017-08-05] MEDS ORDERED: oxyCODONE/ACETAMINOPHEN 10 MG/325 MG TAB PO PRN (11:15)
--- NOTE | 2017-08-05 13:32 | EKG ---
Date Performed: 08/05/2017 Time Performed: 07:26:34 PTAGE: 62 years EKG: Sinus rhythm . 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 DOCTOR: Soto Hardy Interpretating Date/Time 08/05/2017 13:30:59
[2017-08-05] MEDS: METOPROLOL TARTRATE 25 MG TAB PO SCH (19:58)
[2017-08-05] MEDS: TICAGRELOR 90 MG TAB PO SCH (19:59)
[2017-08-05] MEDS ORDERED: ATORVASTATIN 80 MG TAB PO SCH (21:00)
[2017-08-05] MEDS ORDERED: MONTELUKAST SODIUM 10 MG TAB PO SCH (21:00)
[2017-08-06] VITALS (22 sets, daily range): BP systolic 128–155; BP diastolic 72–93; PULSE 66–83; RESP 18; TEMP 98.2–98.5; O2SAT 95–98
--- NOTE | 2017-08-06 00:36 | MA ---
cc: ROSALES BRASHER DO DATE OF PROCEDURE August 05, 2017 PROCEDURE Left heart catheterization, coronary angiogram, bypass angiogram, distal filter wire protection, Harsha drug-eluting stent (2.5 x 22) to the SVG to the PDA, moderate sedation 90 minutes. PREPROCEDURE DIAGNOSIS Unstable angina on multiple antianginal medications. POSTPROCEDURE DIAGNOSIS Multivessel coronary artery disease status post Harsha drug-eluting stent (2.5 x 22) to the SVG to the PDA, with residual left main and obtuse marginal disease. MEDICATIONS 1. Versed 1 milligram. 2. Fentanyl 125 micrograms. 3. Heparin 7,800 units. 4. Nitro 600 micrograms. 5. Brilinta 180 milligrams. CONTRAST USED 225 cc. FLUOROSCOPY 25.5 minutes. MODERATE SEDATION 90 minutes. ESTIMATED BLOOD LOSS 10 cc. PROCEDURAL SUMMARY Bassam Stack is a pleasant 62-year-old male who sees my partner, Dr. Nunez, in the office and was noted to have continual chest pain on multiple antianginal medications. Because of this he was recommended cardiac catheterization. Risks, benefits and alternatives were explained to him he consented as such. He was brought to the lab and prepped in the usual sterile fashion. Right femoral artery was accessed using a modified Seldinger technique and placement of a 5-Moldovan sheath. This was easily aspirated and flushed. The JR-4 was advanced over a J-wire to the ascending aorta and across the aortic valve for measurement of left ventricular pressure. This was pulled back across the aortic valve showing no significant gradient of aortic stenosis. JR-4 was used for selective angiography of the RCA, SVG to PDA and CHIN to LAD. I was unable to engage the other noted vein graft. JR-4 was then exchanged for a JL-4 and then a JL-4.5 which was used for selective angiography of the left coronary artery system. This was exchanged out for an AL-1 which was used for selective angiography of the SVG to the OM which was occluded. Please see notes below for intervention. FINDINGS Left main: Normal size vessel with 70% stenosis in the ostial portion. It trifurcates into an LAD, ramus and circumflex. LAD: Normal size vessel with a 95% stenosis in the midportion and distally has competitive flow. It gives off two small diagonals. Ramus: Normal size vessel with overall tortuosity but no significant disease. Left circumflex: Normal size vessel with no significant disease through the proximal and midportion. It gives off one major obtuse marginal which has an 80% lesion in the midportion. No competitive flow is noted in the obtuse marginals where the apparent graft previously touched down. RCA: Normal size vessel with diffuse 60% disease throughout the midportion and a 95% lesion noted in the PDA. CHIN to LAD: Patent with good runoff to an overall small LAD. The distal portion of the LAD at the apex has a 95% lesion but is overall a small vessel at 1.5 mm. SVG to obtuse marginal occluded. SVG to PDA 95% lesion in the proximal portion. LVEDP 17. INTERVENTION As the patient has multiple lesions including the SVG to the PDA, left main and obtuse marginal, I felt at the time the best option would be to fix the SVG to PDA as it had SHERRI I flow and there was concern for this occluding if a stage procedure was done. The5-Moldovan sheath was then exchanged for a 6-Moldovan sheath. The patient was given heparin as an anticoagulant. A Prowater wire was advanced into the distal portion of the SVG to PDA. As I did not feel a filter wire would be able to be placed through the significant lesion this was ballooned with a compliant balloon (2 x 12). A 4 mm spider filter was then placed in the midportion of the vein graft and the Prowater was removed. The compliant balloon (2 x 12) was used to further dilate the lesion to allow visualization. An Harsha drug-eluting stent (2.5 x 22) was then inflated over the lesion. A noncompliant balloon (2.75 x 15) was then used to post dilate the stent. Recovery system was used to remove the filter. Final angiogram shows a well opposed stent with no perforations or dissections and there was noted some to and fro flow in the distal SVG which was seen earlier and appears to be a valve. Guide was removed. Sheath was sewn in place with a plan to remove once ACT values were in an appropriate range. The patient was loaded with 180 milligrams of Brilinta. 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 IMPRESSION 1. Unstable angina. 2. History of CABG x3 (2/3 grafts patent). 3. Multivessel coronary artery disease status post Harsha drug-eluting stent (2.5 x 22) to the SVG to PDA. 4. Residual left main and obtuse marginal disease. RECOMMENDATIONS 1. Mr. Stack underwent stenting of his SVG to PDA and will be placed on aspirin and Brilinta therapy. I discussed with him getting 1 month free of Brilinta and then calling to make sure that refills are not too expensive. If refills are too expensive he will call myself or Dr. Nunez for consideration of switching to Plavix. 2. He will be watched overnight with a plan to discharge in the morning if stable. 3. He does have residual obtuse marginal disease where his vein graft previously bypassed but is now occluded. I have discussed with him seeing how he feels over the next few weeks and if concerned will come back with a plan to intervene on the left main and then the obtuse marginal for complete revascularization although I believe that his culprit vessel for his chest pain was the vein graft to the PDA due to its significance. Thank you for allowing me to see Bassam Stack. If there are any questions please do not hesitate to call. Rosales Brasher DO VGP/EO /11:27 PM /12:11 AM
[2017-08-06] MEDS: NS 1000P @30 MLS/HR (KVO) IV SCH (07:59)
[2017-08-06 08:34] LABS: AUTOMATED NEUTROPHIL # 6.9 TH/MM3 (1.8-7.7); BASOPHIL # 0.1 TH/MM3 (0-0.2); BASOPHIL % 1.2 % (0.0-2.0); EOSINOPHIL # 0.3 TH/MM3 (0-0.4); EOSINOPHIL % 2.8 % (0.0-4.0); HEMATOCRIT 43.5 % (39.0-51.0); HEMO FLAGS DIFF FINAL; LYMPH % 19.8 % (9.0-44.0); MEAN CELL VOLUME 86.5 FL (80.0-100.0); MEAN CORPUSCULAR HEMOGLOBIN 29.3 PG (27.0-34.0); MEAN CORPUSCULAR HGB CONC 33.9 % (32.0-36.0); MONO % 7.9 % (0.0-8.0); NEUT % 68.3 % (16.0-70.0); PLATELET COUNT 199 TH/MM3 (150-450); RED BLOOD COUNT 5.03 MIL/MM3 (4.50-5.90); RED CELL DISTRIBUTION WIDTH 14.4 % (11.6-17.2); WHITE BLOOD COUNT 10.1 TH/MM3 (4.0-11.0)
[2017-08-06] MEDS ORDERED: LISINOPRIL 20 MG TAB PO SCH (09:00)
[2017-08-06] MEDS ORDERED: ASPIRIN EC 81 MG TABEC PO SCH (09:00)
[2017-08-06] MEDS ORDERED: PT:INVOKANA 300 MG PO SCH (09:00)
[2017-08-06] MEDS ORDERED: NON-FORMULARY DRUG (Canagliflozin (Invokana) 300 MG) PO SCH (09:00)
[2017-08-06] MEDS ORDERED: LOSARTAN 25 MG TAB PO SCH (09:00)
[2017-08-06] MEDS ORDERED: PT TRULICITY SQ SCH (09:00)
[2017-08-06 09:03] LABS: BICARBONATE 26.1 MEQ/L (21.0-32.0); POTASSIUM 3.9 MEQ/L (3.5-5.1)
[2017-08-06] MEDS: TICAGRELOR 90 MG TAB PO SCH (09:37)
[2017-08-06] MEDS: METOPROLOL TARTRATE 25 MG TAB PO SCH (09:38)
[2017-08-06] MEDS ORDERED: BRIL90TA PO (18:20)
[2017-08-06] MEDS ORDERED: TICAGRELOR 90 MG TAB PO ONE (18:30)
--- NOTE | 2017-08-06 21:20 | PD.CARD.PN ---
Subjective Subjective Remarks Patient seen earlier No complaints, no chest pain, no SOB Objective Medications Current Medications Sodium Chloride 1,000 ml @ 30 mls/hr Q24H IV Last administered on 08/05/17 07:00; Start 08/05/17 at 07:00; Stop 08/06/17 at 18:47; Status DC Heparin Sodium/ Sodium Chloride 1,000 ml @ As Directed STK-MED ONCE .ROUTE Last administered on 08/05/17 08:19; Start 08/05/17 at 08:19; Stop 08/05/17 at 08:20; Status DC Midazolam HCl (Versed Inj) 2 mg STK-MED ONCE .ROUTE Last administered on 08:35; Start 08/05/17 at 08:19; Stop 08/05/17 at 08:20; Status DC Fentanyl Citrate (fentaNYL INJ) 100 mcg STK-MED ONCE .ROUTE Last administered on 08/05/17 08:36; Start 08/05/17 at 08:19; Stop 08/05/17 at 08:20; Status DC Heparin Sodium (Porcine) (Heparin Inj) 10,000 units STK-MED ONCE .ROUTE Last administered on 08/05/17 09:15; Start 08/05/17 at 08:48; Stop 08/05/17 at 08 :49; Status DC Nitroglycerin 5 ml @ As Directed STK-MED ONCE .ROUTE Last administered on 08/05 09:38; Start 08/05/17 at 08:48; Stop 08/05/17 at 08:49; Status DC Fentanyl Citrate (fentaNYL INJ) 100 mcg STK-MED ONCE .ROUTE Last administered on 08/05/17 09:33; Start 08/05/17 at 09:31; Stop 08/05/17 at 09:32; Status DC Heparin Sodium/ Sodium Chloride 1,000 ml @ As Directed STK-MED ONCE .ROUTE Last administered on 08/05/17 09:32; Start 08/05/17 at 09:32; Stop 08/05/17 at 09:33; Status DC Ticagrelor (Brilinta) 180 mg STK-MED ONCE PO Last administered on 08/05/17 09 :58; Start 08/05/17 at 09:49; Stop 08/05/17 at 09:50; Status DC Iohexol (OMNIPAQUE 350 INJ (Product Support Engineer)) 100 ml STK-MED ONCE OTHER ; Start at 06:36; Stop 08/05/17 at 10:47; Status DC Iohexol (OMNIPAQUE 350 INJ (Product Support Engineer)) 50 ml STK-MED ONCE OTHER ; Start at 06:36; Stop 08/05/17 at 10:47; Status DC Aspirin (Ecotrin Ec) 81 mg DAILY PO Last administered on 08/06/17 09:38; Start 08/06/17 at 09:00; Stop 08/06/17 at 18:47; Status DC Atorvastatin Calcium (Lipitor) 80 mg HS PO Last administered on 08/05/17 19: 57; Start 08/05/17 at 21:00; Stop 08/06/17 at 18:47; Status DC Lisinopril (Prinivil) 20 mg DAILY PO Last administered on 08/06/17 09:37; Start 08/06/17 at 09:00; Stop 08/06/17 at 18:47; Status DC Losartan Potassium (Cozaar) 25 mg DAILY PO Last administered on 08/06/17 09: 37; Start 08/06/17 at 09:00; Stop 08/06/17 at 18:47; Status DC Metoprolol Tartrate (Lopressor) 25 mg BID PO Last administered on 08/06/17 09 :38; Start 08/05/17 at 21:00; Stop 08/06/17 at 18:47; Status DC Montelukast Sodium (Singulair) 10 mg HS PO Last administered on 08/05/17 19: 57; Start 08/05/17 at 21:00; Stop 08/06/17 at 18:47; Status DC Nitroglycerin (Nitrostat Sl) 0.4 mg ONCE SL ; Start 08/05/17 at 11:15; Stop at 23:59; Status DC Non-Formulary Medication 300 mg DAILY PO ; Start 08/06/17 at 09:00; Stop 08/06 at 09:00; Status DC Non-Formulary Medication 1.5 mg Q7D SQ ; Start 08/05/17 at 11:15; Status UNV Sodium Chloride 1,000 ml @ 70 mls/hr [id number] IV Last administered on 11:04; Start 08/05/17 at 11:04; Stop 08/05/17 at 23:03; Status DC Acetaminophen (Tylenol) 325 mg Q4H PRN PO PAIN SCALE 1 TO 2 Last administered on 08/06/17 16:26; Start 08/05/17 at 11:15; Stop 08/06/17 at 18:47; Status DC Oxycodone/ Acetaminophen (Percocet 5-325 Mg) 1 tab Q4H PRN PO PAIN SCALE 3 TO 5; Start 08/05/17 at 11:15; Stop 08/06/17 at 18:47; Status DC Oxycodone/ Acetaminophen (Percocet 10-325 Mg) 1 tab Q4H PRN PO PAIN SCALE 6 TO 10 Last administered on 08/05/17 20:01; Start 08/05/17 at 11:15; Stop at 18:47; Status DC Morphine Sulfate (Morphine Inj) 2 mg Q30M PRN IV PUSH BREAKTHROUGH PAIN; Start 08/05/17 at 11:15; Stop 08/06/17 at 18:47; Status DC Ticagrelor (Brilinta) 90 mg BID PO Last administered on 08/06/17 09:37; Start 08/05/17 at 21:00; Stop 08/06/17 at 18:47; Status DC Miscellaneous Information 1 ONCE ONCE XX ; Start 08/05/17 at 11:15; Stop at 12:51; Status DC Patient Own Medication PT OWN MED: INVOK... DAILY PO ; Start 08/06/17 at 09:00 ; Stop 08/06/17 at 18:47; Status DC Patient Own Medication PT OWN MED: TRULICITY(DULAGUTIDE)... Q7D SQ ; Start at 09:00; Stop 08/06/17 at 18:47; Status DC Ticagrelor (Brilinta) 90 mg ONCE ONCE PO ; Start 08/06/17 at 18:30; Stop at 18:31; Status DC Vital Signs / I&O Vital Signs Date Time Temp Pulse Resp B/P (MAP) Pulse Ox O2 Delivery O2 Flow Rate FiO2 08/06/17 18:11 75 08/06/17 17:37 74 08/06/17 16:00 78 08/06/17 15:08 98.5 71 18 136/83 (100) 96 08/06/17 15:00 66 08/06/17 14:00 70 08/06/17 13:00 68 08/06/17 12:04 98.4 70 18 136/85 (102) 96 08/06/17 12:00 70 08/06/17 11:00 66 08/06/17 10:00 74 08/06/17 09:00 70 08/06/17 08:00 76 08/06/17 07:50 98.2 73 18 155/93 (113) 95 08/06/17 07:00 74 08/06/17 06:00 70 08/06/17 05:00 68 08/06/17 04:00 83 08/06/17 03:00 98.2 69 18 128/72 (90) 98 08/06/17 03:00 74 08/06/17 02:00 71 08/06/17 01:00 74 08/06/17 00:00 76 08/05/17 23:00 68 08/05/17 23:00 98.6 68 16 144/84 (104) 97 08/05/17 22:00 78 I/O 08/05/17 08/05/17 08/05/17 08/06/17 08/06/17 08/06/17 07:00 15:00 23:00 07:00 15:00 23:00 Intake Total 2240 ml 480 ml 720 ml Output Total 350 ml 800 ml Balance 1890 ml -320 ml 720 ml Intake Oral 240 ml 480 ml 720 ml IV Total 2000 ml Output Urine Total 350 ml 800 ml Stool Total 0 ml # Voids 4 Physical Exam GENERAL: NAD, AAOx3 SKIN: Warm and dry. HEAD: Atraumatic. Normocephalic. EYES: Pupils equal and round. No scleral icterus. No injection or drainage. ENT: No nasal bleeding or discharge. Mucous membranes pink and moist. NECK: Trachea midline. No JVD. CARDIOVASCULAR: Regular rate and rhythm. RESPIRATORY: No accessory muscle use. Clear to auscultation. Breath sounds equal bilaterally. GASTROINTESTINAL: Abdomen soft, non-tender, nondistended. Hepatic and splenic margins not palpable. MUSCULOSKELETAL: Extremities without clubbing, cyanosis, or edema. No obvious deformities. Right femoral no hematoma/bruit, distal pulses intact NEUROLOGICAL: Awake and alert. No obvious cranial nerve deficits. Motor grossly within normal limits. Five out of 5 muscle strength in the arms and legs. Normal speech. PSYCHIATRIC: Appropriate mood and affect; insight and judgment normal. Laboratory Laboratory Tests Test 08/06/17 07:25 White Blood Count 10.1 TH/MM3 Red Blood Count 5.03 MIL/MM3 Hemoglobin 14.7 GM/DL Hematocrit 43.5 % Mean Corpuscular Volume 86.5 FL Mean Corpuscular Hemoglobin 29.3 PG Mean Corpuscular Hemoglobin Concent 33.9 % Red Cell Distribution Width 14.4 % Platelet Count 199 TH/MM3 Mean Platelet Volume 8.7 FL Neutrophils (%) (Auto) 68.3 % Lymphocytes (%) (Auto) 19.8 % Monocytes (%) (Auto) 7.9 % Eosinophils (%) (Auto) 2.8 % Basophils (%) (Auto) 1.2 % Neutrophils # (Auto) 6.9 TH/MM3 Lymphocytes # (Auto) 2.0 TH/MM3 Monocytes # (Auto) 0.8 TH/MM3 Eosinophils # (Auto) 0.3 TH/MM3 Basophils # (Auto) 0.1 TH/MM3 CBC Comment DIFF FINAL Differential Comment Blood Urea Nitrogen 18 MG/DL Creatinine 1.01 MG/DL Random Glucose 96 MG/DL Calcium Level 9.0 MG/DL Sodium Level 138 MEQ/L Potassium Level 3.9 MEQ/L Chloride Level 103 MEQ/L Carbon Dioxide Level 26.1 MEQ/L Anion Gap 9 MEQ/L Estimat Glomerular Filtration Rate 75 ML/MIN Assessment and Plan Problem List: (1) Stented coronary artery ICD Codes: Z95.5 - Presence of coronary angioplasty implant and graft (2) Unstable angina ICD Codes: I20.0 - Unstable angina Status: Acute (3) Diabetes mellitus ICD Codes: E11.9 - Diabetes mellitus Status: Chronic (4) Hypertension ICD Codes: I10 - Hypertension Status: Chronic (5) CAD (coronary artery disease) ICD Codes: I25.10 - CAD (coronary artery disease) Status: Acute Assessment and Plan 1) Unstable angina on multiple medications s/p AMOS to SVG to PDA Residual OM disease with LM disease Discussed with patient, will call me next week and if still with chest pain will plan to fix OM (to get to OM will need to stent LM) 2) ASA/Brilinta Discussed with patient Will get free 1 month and call his insurance to see how much refills are If too expensive will call to switch to Plavix 3) Cardiovascularly stable for discharge > 45 mins spent on discharge including discussing with the patient and his about medications and plan for future intervention if needed Problem Qualifiers (1) CAD (coronary artery disease): Rosales Gallardo DO Aug 06, 2017 21:20
== END 2017-08-06 18:46 | disposition home or self-care (01) ==
LOC: HCAT 06:35 → HDIC 06:36 → HCIS 17:20 → HCAT 08-06 18:46
PROVIDERS: ATTEND Nuclear Medicine Nuclear Cardiology
DX: I25.110 Atherosclerotic heart disease of native coronary artery with unstable angina pectoris (principal); I11.9 Hypertensive heart disease without heart failure; E11.9 Type 2 diabetes mellitus without complications; E78.5 Hyperlipidemia, unspecified; R07.9 Chest pain, unspecified; R94.31 Abnormal electrocardiogram [ECG] [EKG]; Z95.1 Presence of aortocoronary bypass graft; Z95.5 Presence of coronary angioplasty implant and graft; Z79.899 Other long term (current) drug therapy; Z87.891 Personal history of nicotine dependence
CPT/HCPCS: 80048; 85002; 85025; 85610; 85730; 92928; 93005; 93459; 99152; 99153; C1725; C1769; C1874; C1884; C1887; C1893; J1644; J2250; J3010; J7030; Q9967

== ENCOUNTER 2017-12-15 13:12 | Inpatient (IN) | payer OTHER ==
[~2017-12-15 13:12] MED LIST changes: +ASPI81TA23 PO; +BRIL90TA PO; -IMIQ5CRE; +LOSA25TA PO; +MONT10TA4 PO
[2017-12-15 13:34] VITALS: BP 131/66; PULSE 75; RESP 14; TEMP 98.3; O2SAT 99
[2017-12-15] MEDS ORDERED: ASPIRIN 81 MG CHEW TAB PO ONE (13:45)
--- NOTE | 2017-12-15 13:52 | PD ---
HPI Chief Complaint: Chest Pain Time Seen by Provider: 13:49 Travel History International Travel<30 days: No Contact w/Intl Traveler<30days: No History of Present Illness HPI Patient complains of a substernal nonradiating chest pressure 7 out of 10 discomfort, not improved after taking sublingual nitro 2. Patient's experienced something similar to this in the past and he ended up requiring stents on his bypass vessels No known drug allergy Past medical history significant for tonsillectomy, CABG, hypercholesterolemia, hypertension, diabetes, PFSH Past Medical History Anxiety: No Depression: No Cancer: No Cardiovascular Problems: Yes High Cholesterol: Yes Diabetes: Yes Diminished Hearing: No Endocrine: Yes Gastrointestinal Disorders: No GERD: No Genitourinary: No Hiatal Hernia: No Hypertension: Yes Immune Disorder: No Musculoskeletal: No Neurologic: No Psychiatric: No Reproductive: No Respiratory: No Ulcer: No Past Surgical History Coronary Artery Bypass Graft: Yes Tonsillectomy: Yes (AGE 5) Social History Alcohol Use: No (OCC BEER) Tobacco Use: No (QUIT OVER 20 YRS AGO) Substance Use: No Allergies-Medications (Allergen,Severity, Reaction): Coded Allergies: No Known Allergies (Verified Allergy, Unknown, 08/05/17) Uncoded Allergies: ENVIRONMENTAL (Allergy, Intermediate, 12/10/08) Reported Meds & Prescriptions Reported Meds & Active Scripts Active Brilinta (Ticagrelor) 90 Mg Tab 90 Mg PO BID 90 Days Reported Montelukast (Montelukast Sodium) 10 Mg Tab 10 Mg PO HS Losartan (Losartan Potassium) 25 Mg Tab 25 Mg PO DAILY Aspirin EC (Aspirin) 81 Mg Tabdr 81 Mg PO DAILY Invokana (Canagliflozin) 300 Mg Tab 300 Mg PO DAILY Take before 1st meal of day. Atorvastatin (Atorvastatin Calcium) 80 Mg Tab 80 Mg PO HS Metoprolol Tartrate 25 Mg Tab 25 Mg PO BID Lisinopril 20 Mg Tab 20 Mg PO DAILY Nitrostat SL (Nitroglycerin) 0.4 Mg Subl 0.4 Mg SL ONCE Janumet Xr (Sitagliptin-Metformin ER) 50-1,000 Mg Tab 1 Tab PO DAILY Trulicity Inj (Dulaglutide Inj) 1.5 Mg/0.5 Ml Pen 1.5 Mg SQ Q7D Review of Systems General / Constitutional: No: Fever Eyes: No: Visual changes HENT: No: Headaches Cardiovascular: Positive: Chest Pain or Discomfort Respiratory: No: Shortness of Breath Gastrointestinal: No: Abdominal Pain Genitourinary: No: Dysuria Musculoskeletal: No: Pain Skin: No Rash Neurologic: No: Weakness Psychiatric: No: Depression Endocrine: No: Polydipsia Hematologic/Lymphatic: No: Easy Bruising Physical Exam Narrative GENERAL: SKIN: Warm and dry. HEAD: Atraumatic. Normocephalic. EYES: Pupils equal and round. No scleral icterus. No injection or drainage. ENT: No nasal bleeding or discharge. Mucous membranes pink and moist. NECK: Trachea midline. No JVD. CARDIOVASCULAR: Regular rate and rhythm. RESPIRATORY: No accessory muscle use. Clear to auscultation. Breath sounds equal bilaterally. GASTROINTESTINAL: Abdomen soft, non-tender, nondistended. MUSCULOSKELETAL: Extremities without clubbing, cyanosis, or edema. No obvious deformities. NEUROLOGICAL: Awake and alert. No obvious cranial nerve deficits. Motor grossly within normal limits. Five out of 5 muscle strength in the arms and legs. Normal speech. PSYCHIATRIC: Appropriate mood and affect; insight and judgment normal. Data Data Last Documented VS Vital Signs Date Time Temp Pulse Resp B/P (MAP) Pulse Ox O2 Delivery O2 Flow Rate FiO2 12/15/17 15:33 70 18 127/72 (90) 97 Room Air 12/15/17 13:34 98.3 Orders Orders Electrocardiogram (12/15/17 13:38) Basic Metabolic Panel (Bmp) (12/15/17 13:38) Ckmb (Isoenzyme) Profile (12/15/17 13:38) Complete Blood Count With Diff (12/15/17 13:38) Magnesium (Mg) (12/15/17 13:38) Prothrombin Time / Inr (Pt) (12/15/17 13:38) Act Partial Throm Time (Ptt) (12/15/17 13:38) Troponin I (12/15/17 13:38) Aspirin Chew (Aspirin Chew) (12/15/17 13:45) Chest, Pa & Lat (12/15/17 13:38) Morphine Inj (Morphine Inj) (12/15/17 14:15) Nitroglycerin 2% Oint (Nitroglycerin 2% (12/15/17 14:15) CKMB (12/15/17 14:30) CKMB% (12/15/17 14:30) Labs Laboratory Tests Test 12/15/17 14:30 White Blood Count 8.9 TH/MM3 Red Blood Count 4.97 MIL/MM3 Hemoglobin 14.3 GM/DL Hematocrit 42.6 % Mean Corpuscular Volume 85.9 FL Mean Corpuscular Hemoglobin 28.7 PG Mean Corpuscular Hemoglobin Concent 33.5 % Red Cell Distribution Width 14.5 % Platelet Count 209 TH/MM3 Mean Platelet Volume 8.6 FL Neutrophils (%) (Auto) 69.9 % Lymphocytes (%) (Auto) 18.3 % Monocytes (%) (Auto) 7.8 % Eosinophils (%) (Auto) 2.8 % Basophils (%) (Auto) 1.2 % Neutrophils # (Auto) 6.2 TH/MM3 Lymphocytes # (Auto) 1.6 TH/MM3 Monocytes # (Auto) 0.7 TH/MM3 Eosinophils # (Auto) 0.2 TH/MM3 Basophils # (Auto) 0.1 TH/MM3 CBC Comment DIFF FINAL Differential Comment Prothrombin Time 10.3 SEC Prothromb Time International Ratio 1.0 RATIO Activated Partial Thromboplast Time 24.7 SEC Blood Urea Nitrogen 18 MG/DL Creatinine 1.20 MG/DL Random Glucose 84 MG/DL Calcium Level 8.8 MG/DL Magnesium Level 1.9 MG/DL Sodium Level 142 MEQ/L Potassium Level 4.4 MEQ/L Chloride Level 106 MEQ/L Carbon Dioxide Level 25.9 MEQ/L Anion Gap 10 MEQ/L Estimat Glomerular Filtration Rate 61 ML/MIN Total Creatine Kinase 192 U/L Creatine Kinase MB 4.5 NG/ML Troponin I LESS THAN 0.02 NG/ML MDM Medical Decision Making Medical Screen Exam Complete: Yes Emergency Medical Condition: Yes Medical Record Reviewed: Yes Interpretation(s) EKG shows normal sinus rhythm, 77 bpm, right axis deviation, prolonged AL consistent with a first-degree AV block, do not see any evidence of tombstone or ST elevation SD noted, nor any contralateral anatomical ST depressions. Do not believe I see any evidence of acute SD on my interpretation. Differential Diagnosis SD versus non-STEMI versus pneumonia versus pneumothorax versus pleural effusion Narrative Course Per a cath performed by Dr. Sami Caba, on July 2017 the patient underwent stenting of his SVG to PDA and was placed on aspirin and Brilinta. However the patient alsO has residual obtuse marginal disease where his vein graft previously bypass now occluded. A plan to intervene on the left main and then obtuse marginal for complete revascularization is thought at a later time should that be necessary. Diagnosis Primary Impression: Acute coronary syndrome Admitting Information Admitting Physician Requests: Observation Andrey Mckeon MD Dec 15, 2017 13:52
--- NOTE | 2017-12-15 14:12 | RADRPT ---
EXAM DATE/TIME: 12/15/2017 13:57 [facility] COMPARISON: CHEST SINGLE AP, January 24, 2017, 7:40. INDICATIONS : Chest pain. MEDICAL HISTORY : Myocardial infarction. SURGICAL HISTORY : CABG. ENCOUNTER: Initial ACUITY: 1 day PAIN SCORE: 7/10 LOCATION: Left upper chest FINDINGS: Frontal and lateral views of the chest demonstrate a normal-sized cardiac silhouette in this patient post median sternotomy and CABG. Multiple clips are present in the anterior mediastinum. No effusion, consolidation, or pneumothorax is identified. The bones and soft tissues demonstrate no acute findin g. CONCLUSION: No acute cardiopulmonary abnormality is identified. Mark Cash MD on December 15, 2017 at 14:08 Board Certified Radiologist. This report was verified electronically.
[2017-12-15] MEDS ORDERED: NITROGLYCERIN 2% OINT 1 GM PACKET TOP ONE (14:15)
[2017-12-15] MEDS ORDERED: MORPHINE SULFATE 4 MG/ML INJ IV PUSH ONE (14:15)
[2017-12-15 14:53] LABS: AUTOMATED NEUTROPHIL # 6.2 TH/MM3 (1.8-7.7); BASOPHIL # 0.1 TH/MM3 (0-0.2); BASOPHIL % 1.2 % (0.0-2.0); EOSINOPHIL # 0.2 TH/MM3 (0-0.4); EOSINOPHIL % 2.8 % (0.0-4.0); HEMATOCRIT 42.6 % (39.0-51.0); HEMOGLOBIN 14.3 GM/DL (13.0-17.0); LYMPH % 18.3 % (9.0-44.0); LYMPHOCYTE # 1.6 TH/MM3 (1.0-4.8); MEAN CELL VOLUME 85.9 FL (80.0-100.0); MEAN CORPUSCULAR HEMOGLOBIN 28.7 PG (27.0-34.0); MEAN CORPUSCULAR HGB CONC 33.5 % (32.0-36.0); MEAN PLATELET VOLUME 8.6 FL (7.0-11.0); MONO % 7.8 % (0.0-8.0); MONOCYTE # 0.7 TH/MM3 (0-0.9); NEUT % 69.9 % (16.0-70.0); PLATELET COUNT 209 TH/MM3 (150-450); RED BLOOD COUNT 4.97 MIL/MM3 (4.50-5.90); RED CELL DISTRIBUTION WIDTH 14.5 % (11.6-17.2); WHITE BLOOD COUNT 8.9 TH/MM3 (4.0-11.0)
[2017-12-15 15:09] LABS: BICARBONATE 25.9 MEQ/L (21.0-32.0); BLOOD UREA NITROGEN 18 MG/DL (7-18); CALCIUM 8.8 MG/DL (8.5-10.1); CHLORIDE 106 MEQ/L (98-107); GLOMERULAR FILTRATION RATE 61 ML/MIN (>89); GLUCOSE,RANDOM 84 MG/DL (74-106); MAGNESIUM 1.9 MG/DL (1.5-2.5); SODIUM (NA) 142 MEQ/L (136-145)
[2017-12-15 15:12] LABS: TROPONIN I LESS THAN 0.02 NG/ML (0.02-0.05)
[2017-12-15 15:25] LABS: PROTHROMBIN TIME - PATIENT 10.3 SEC (9.8-11.6)
[2017-12-15 15:33] VITALS: BP 127/72; PULSE 70; RESP 18; O2SAT 97
[2017-12-15] MEDS ORDERED: NALOXONE HCL 0.4 MG/ML AMP IV PUSH PRN (16:45)
[2017-12-15] MEDS ORDERED: SODIUM CHLORIDE 0.9% FLUSH 10 ML FLUSH IV FLUSH PRN (16:45)
--- NOTE | 2017-12-15 16:59 | HHI.HP ---
[facility] Flower Adkins D.O. Admission Diagnosis ACS Diagnoses: Travel History International Travel<30 Days: No Contact w/Intl Traveler <30 Da: No Traveled to Known Affected Are: No History of Present Illness History from patient, ER physician communication, and review of medical records. 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 Patient also reported that he was having chest pains even after this stent placement but Jarrell was doing its job at controlling it for most part. However he noted that the frequencies of attacks and pains have been coming more often and particularly when he exerts and walks around. Review of Systems Except as stated in HPI: all other systems reviewed are Neg Past Family Social History Past Medical History htn dm cad- cabg 3 yrs ago, s/p stents- pt thinks 3 total, one stent here was in 2016 hypothyroidism bph Past Surgical History cabg coronary angiograms and stenting Allergies: Coded Allergies: No Known Allergies (Verified Allergy, Unknown, 08/05/17) Uncoded Allergies: ENVIRONMENTAL (Allergy, Intermediate, 12/10/08) Family History 2 aunts from father side had cancer dm-fathers side- heart issues Social History used to smoke only in his 20s no etoh abuse no drugs Physical Exam Vital Signs Vital Signs Date Time Temp Pulse Resp B/P (MAP) Pulse Ox O2 Delivery O2 Flow Rate FiO2 12/15/17 15:33 70 18 127/72 (90) 97 Room Air 12/15/17 14:29 70 98 Room Air 12/15/17 13:34 98.3 75 14 131/66 (87) 99 Physical Exam GENERAL: This is a well-nourished, well-developed patient, in no apparent distress. SKIN: No rashes, ecchymoses or lesions. Cool and dry. HEAD: Atraumatic. Normocephalic. No temporal or scalp tenderness. EYES: No scleral icterus. No injection or drainage. ENT: Nose without bleeding, purulent drainage or septal hematoma. Airway patent. NECK: Trachea midline. No JVD Supple, nontender, no meningeal signs. CARDIOVASCULAR: Regular rate and rhythm without murmurs, gallops, or rubs. RESPIRATORY: Clear to auscultation. Breath sounds equal bilaterally. No wheezes , rales, or rhonchi. GASTROINTESTINAL: Abdomen soft, non-tender, nondistended. No guarding. MUSCULOSKELETAL: Extremities without clubbing, cyanosis, or edema. No joint tenderness, effusion, or edema noted. No calf tenderness. NEUROLOGICAL: Awake and alert. Motor and sensory grossly within normal limits. Normal speech. Laboratory Laboratory Tests Test 12/15/17 14:30 White Blood Count 8.9 Red Blood Count 4.97 Hemoglobin 14.3 Hematocrit 42.6 Mean Corpuscular Volume 85.9 Mean Corpuscular Hemoglobin 28.7 Mean Corpuscular Hemoglobin Concent 33.5 Red Cell Distribution Width 14.5 Platelet Count 209 Mean Platelet Volume 8.6 Neutrophils (%) (Auto) 69.9 Lymphocytes (%) (Auto) 18.3 Monocytes (%) (Auto) 7.8 Eosinophils (%) (Auto) 2.8 Basophils (%) (Auto) 1.2 Neutrophils # (Auto) 6.2 Lymphocytes # (Auto) 1.6 Monocytes # (Auto) 0.7 Eosinophils # (Auto) 0.2 Basophils # (Auto) 0.1 CBC Comment DIFF FINAL Differential Comment Prothrombin Time 10.3 Prothromb Time International Ratio 1.0 Activated Partial Thromboplast Time 24.7 Blood Urea Nitrogen 18 Creatinine 1.20 Random Glucose 84 Calcium Level 8.8 Magnesium Level 1.9 Sodium Level 142 Potassium Level 4.4 Chloride Level 106 Carbon Dioxide Level 25.9 Anion Gap 10 Estimat Glomerular Filtration Rate 61 Total Creatine Kinase 192 Creatine Kinase MB 4.5 Troponin I LESS THAN 0.02 Result Diagram: 12/15/17 1430 12/15/17 1430 Imaging Last 48 hours Impressions Chest X-Ray 12/15/17 1338 Signed Impressions: Service Date/Time: Friday, December 15, 2017 13:57 - CONCLUSION: No acute cardiopulmonary abnormality is identified. MD Charly Medellin VTE Risk Assessment Caprini VTE Risk Assessment: Mod/High Risk (score >= 2) Caprini Risk Assessment Model Point Value = 1 Point Value = 2 Point Value = 3 Point Value = 5 Age 41-60 Minor surgery BMI > 25 kg/m2 Swollen legs Varicose veins or History of unexplained or recurrent spontaneous Oral contraceptives or hormone replacement Sepsis (< 1 month) Serious lung disease, including pneumonia (< 1 month) Abnormal pulmonary function Acute myocardial infarction Congestive heart failure (< 1 month) History of inflammatory bowel disease Medical patient at bed rest Age 61-74 Arthroscopic surgery Major open surgery (> 45 min) Laparoscopic surgery (> 45 min) Malignancy Confined to bed (> 72 hours) Immobilizing plaster cast Central venous access Age >= 75 History of VTE Family history of VTE Factor V Leiden Prothrombin [id number] Lupus anticoagulant Anticardiolipin antibodies Elevated serum homocysteine Heparin-induced thrombocytopenia Other congenital or acquired thrombophilia Stroke (< 1 month) Elective arthroplasty Hip, pelvis, or leg fracture Acute spinal cord injury (< 1 month) Prophylaxis Regimen Total Risk Factor Score Risk Level Prophylaxis Regimen 0-1 Low Early ambulation 2 Moderate Order ONE of the following: *Sequential Compression Device (SCD) *Heparin 5000 units SQ BID 3-4 Higher Order ONE of the following medications: *Heparin 5000 units SQ TID *Enoxaparin/Lovenox 40 mg SQ daily (WT < 150 kg, CrCl > 30 mL/min) *Enoxaparin/Lovenox 30 mg SQ daily (WT < 150 kg, CrCl > 10-29 mL/min) *Enoxaparin/Lovenox 30 mg SQ BID (WT < 150 kg, CrCl > 30 mL/min) AND/OR *Sequential Compression Device (SCD) 5 or more Highest Order ONE of the following medications: *Heparin 5000 units SQ TID (Preferred with Epidurals) *Enoxaparin/Lovenox 40 mg SQ daily (WT < 150 kg, CrCl > 30 mL/min) *Enoxaparin/Lovenox 30 mg SQ daily (WT < 150 kg, CrCl > 10-29 mL/min) *Enoxaparin/Lovenox 30 mg SQ BID (WT < 150 kg, CrCl > 30 mL/min) AND *Sequential Compression Device (SCD) Assessment and Plan Assessment and Plan Impression: Unstable angina Hypertension Diabetes Coronary artery disease status post CABG 3 years ago. Status post stents- pt thinks 3 total, one stent here was in 07/2017 Hypothyroidism BPH Plan: Serial cardiac enzymes and EKGs. First set of cardiac enzymes negative. EKG personally reviewed. Sinus rhythm. No acute ST-T changes. Patient was given aspirin and nitroglycerin in ER. Start nitroglycerin as needed sublingual. Start patient on heparin drip. Aspirin daily in a.m. Resume rest of his home medications. Hold oral hypoglycemics and long-acting insulin. Med reconciliation by nursing. Cardiology consult as patient has prior angiogram reports showing persistent coronary lesions that may require intervention in the future. DVT prophylaxis on heparin drip. Discussed Condition With Patient, ER physician, nursing staff Gonsalo Linda MD Dec 15, 2017 16:59
[2017-12-15] MEDS ORDERED: HEPARIN-D5W 25,000 U/250 ML 250 ML IV PRN ×2 (17:15→18:45)
[2017-12-15] MEDS ORDERED: HEPARIN SODIUM - IV 10,000 UNITS/10 ML VIAL IV PUSH ONE (17:15)
[2017-12-15 18:03] VITALS: BP 132/71; PULSE 75; RESP 17; O2SAT 97
[2017-12-15 18:35] VITALS: BP 123/67; PULSE 70; RESP 20; TEMP 98; O2SAT 96
[2017-12-15 20:00] VITALS: BP 127/70; PULSE 75; PULSE 86; RESP 17; TEMP 98.8; O2SAT 97
[2017-12-15] MEDS: SODIUM CHLORIDE 0.9% FLUSH 10 ML FLUSH IV FLUSH SCH (20:20)
[2017-12-15 20:37] LABS: TROPONIN I LESS THAN 0.02 NG/ML (0.02-0.05)
[2017-12-15] MEDS ORDERED: GLUCAGON 1 MG/ML VIAL OTHER PRN (20:45)
[2017-12-15] MEDS ORDERED: DEXTROSE 50% IN WATER 50 ML VIAL(D50) IV PUSH PRN (20:45)
[2017-12-15] MEDS ORDERED: NITROGLYCERIN 0.4 MG SL 25 TABS/BTL SL PRN (20:45)
[2017-12-16] VITALS (11 sets, daily range): BP systolic 118–146; BP diastolic 68–82; PULSE 67–80; RESP 16–18; TEMP 97.7–98.3; O2SAT 92–97
[2017-12-16 01:25] LABS: TROPONIN I LESS THAN 0.02 NG/ML (0.02-0.05)
[2017-12-16] MEDS ORDERED: ACETAMINOPHEN 325 MG TAB PO PRN ×2 (03:30→18:15)
[2017-12-16 05:20] LABS: AUTOMATED NEUTROPHIL # 5.3 TH/MM3 (1.8-7.7); BASOPHIL # 0.1 TH/MM3 (0-0.2); BASOPHIL % 1.4 % (0.0-2.0); EOSINOPHIL # 0.3 TH/MM3 (0-0.4); EOSINOPHIL % 3.3 % (0.0-4.0); HEMATOCRIT 41.5 % (39.0-51.0); HEMOGLOBIN 14.1 GM/DL (13.0-17.0); LYMPH % 27.6 % (9.0-44.0); LYMPHOCYTE # 2.5 TH/MM3 (1.0-4.8); MEAN CELL VOLUME 85.4 FL (80.0-100.0); MEAN CORPUSCULAR HEMOGLOBIN 29.1 PG (27.0-34.0); MEAN PLATELET VOLUME 9.1 FL (7.0-11.0); MONO % 7.9 % (0.0-8.0); MONOCYTE # 0.7 TH/MM3 (0-0.9); NEUT % 59.8 % (16.0-70.0); PLATELET COUNT 193 TH/MM3 (150-450); RED BLOOD COUNT 4.86 MIL/MM3 (4.50-5.90); RED CELL DISTRIBUTION WIDTH 14.2 % (11.6-17.2); WHITE BLOOD COUNT 8.9 TH/MM3 (4.0-11.0)
[2017-12-16 05:41] LABS: BICARBONATE 26.2 MEQ/L (21.0-32.0); CALCIUM 8.7 MG/DL (8.5-10.1); CREATININE 0.86 MG/DL (0.60-1.30)
[2017-12-16] MEDS: SODIUM CHLORIDE 0.9% FLUSH 10 ML FLUSH IV FLUSH SCH ×2 (07:42→21:00)
[2017-12-16] MEDS: ASPIRIN EC 81 MG TABEC PO SCH (08:08)
[2017-12-16] MEDS ORDERED: EMPA1TAB3 PO (08:55)
[2017-12-16] MEDS ORDERED: ISOS30TA3 PO (08:56)
[2017-12-16] MEDS ORDERED: HEPARIN-NS/PF FLUSH BAG 2,000 ML IV FLUSH ONE (15:59)
[2017-12-16] MEDS ORDERED: MIDAZOLAM HCL 2 MG/2 ML VIAL ONE (15:59)
[2017-12-16] MEDS ORDERED: HEPARIN SODIUM - IV 10,000 UNITS/10 ML VIAL ONE (16:00)
[2017-12-16] MEDS ORDERED: NITROGLYCERIN INJ 5 ML ONE (16:00)
--- NOTE | 2017-12-16 17:03 | HHI.PR ---
Subjective Remarks Patient denies chest pain short of breath no fever or chills now Initially he came with feeling of left chest heaviness without transfer, patient has a history of CABG plan for heart cath today Objective Vitals Vital Signs Date Time Temp Pulse Resp B/P (MAP) Pulse Ox O2 Delivery O2 Flow Rate FiO2 12/16/17 11:20 98.1 69 18 141/82 (101) 96 12/16/17 07:18 97.7 70 18 127/76 (93) 97 12/16/17 04:00 72 12/16/17 03:59 Room Air 12/16/17 03:59 97.9 79 16 118/70 (86) 94 12/16/17 00:00 69 12/16/17 00:00 Room Air 12/16/17 00:00 98.3 67 16 119/68 (85) 92 12/15/17 20:00 98.8 86 17 127/70 (89) 97 12/15/17 20:00 Room Air 12/15/17 20:00 75 12/15/17 18:35 98.0 70 20 123/67 (85) 96 12/15/17 18:03 75 17 132/71 (91) 97 Room Air I/O 12/15/17 12/15/17 12/15/17 12/16/17 12/16/17 12/16/17 06:59 14:59 22:59 06:59 14:59 22:59 Intake Total 480 ml Balance 480 ml Intake Oral 480 ml # Voids 3 # Bowel Movements 0 Result Diagram: 12/16/17 0426 12/16/176 Objective Remarks GENERAL: This is a well-nourished, well-developed patient, in no apparent distress. SKIN: No rashes, warm and dry HEAD: Atraumatic. Normocephalic. EYES: Pupils equal round and reactive. Extraocular motions intact. No scleral icterus. ENT: Nose without bleeding, or drainage, Airway patent. NECK: Trachea midline. Supple CARDIOVASCULAR: Regular rate and rhythm without murmurs, gallops, or rubs. RESPIRATORY: Fair air entry bilaterally. No wheezes, rales, or rhonchi. GASTROINTESTINAL: Abdomen soft, non-tender, nondistended. Positive bowel sounds MUSCULOSKELETAL: Extremities without clubbing, cyanosis, or edema. Pedal pulses appreciated NEUROLOGICAL: Awake and alert. Moves all extremity. Normal speech.no focal neurological deficit A/P Assessment and Plan Unstable angina Hypertension Diabetes Coronary artery disease status post CABG 3 years ago. Status post stents- pt thinks 3 total, one stent here was in 07/2017 Hypothyroidism BPH Plan: Serial cardiac enzymes and EKGs. First set of cardiac enzymes negative. EKG personally reviewed. Sinus rhythm. No acute ST-T changes. Patient was given aspirin and nitroglycerin in ER. Start nitroglycerin as needed sublingual. Start patient on heparin drip. Aspirin daily in a.m. Resume rest of his home medications. Hold oral hypoglycemics and long-acting insulin. Med reconciliation by nursing. 12/16 appreciate cardiology consultation, plan for heart cath today DVT prophylaxis on heparin drip. Sergio Dill MD Dec 16, 2017 17:03
[2017-12-16] MEDS ORDERED: TICAGRELOR 90 MG TAB PO ONE (17:43)
[2017-12-16] MEDS ORDERED: IOHEXOL 350 MG/ML 100 ML BTL (for Cath Lab) OTHER ONE (18:02)
--- NOTE | 2017-12-16 18:05 | CATHPROC ---
[facility] [employer] HIS Report Study Information Study Number Admission Scheduled Start Study Start [id number] Dec 15 2017 8:24PM 12/16/2017 Dec 16 2017 3:39PM [place] [facility] Cardiac Catheterization Admit Source Facility Department Other [facility] - Insulation Power Unit Tender Physician and Clinical Staff Initial Rosales Mars Head Control Clerk Latisha Storm,PARMINDER Recorder Chuyita Rodríguez,RT(R) Scrub Ck Moore,RT(R) X-Ray Douglas Rodriguez,RT(R) Procedures Performed Procedure Location (Site) Vessel Name Coronary Angiograms LCA Left Coronary Coronary Angiograms RCA Right Coronary Coronary Angiograms CHIN-LAD Left Coronary Coronary Angiograms SVG-RCA Right Coronary L Heart Cath PTCA SVG-RCA Right Coronary Wire insertion Fem Art (right) Femoral Art Equipment Time Family Centered Specialist Description Size Mfg Part Number Used/Scraped WIRE, BALANCE MIDDLEWEIGHT [id number] 17:04 [employer] 190CM Used 190CM *[id number] TRANSDUCER, TRUWAVE [id number] 16:31 AGNT MOLINA * Used W/Dachis GroupCOCK *[id number] INTRODUCER SET, 16:31 [employer]. FR 5 [id number] *[id number] Used MICROPUNCTURE STIFF 534-660T *[id number] 534-620T *[id number] 534-621T *[id number] *[id number] 534-642T *[id number] 534-642T *[id number] 17:40 DAIG/ST. CARLA MEDICAL ANGIOSEAL, FR6 VIP FR 6 Used *[id number] ENDOVASCULAR WIRE, SPIDERFX 3.0 X [id number] 17:05 30 X 320CM Used COMPANY 320/190CM *[id number] 16:31 Venturepax PACK, CCL CUSTOM * Used *[id number] 17:14 MEDTRONIC BALLOON, 2.0 X 12MM EUPHORA 12MM Used *[id number] BALLOON, 2.75 X 15MM NC [id number] 17:07 MEDTRONIC 15MM Used EUPHORA *[id number] BALLOON, 3.0 X 12MM NC [id number] 17:28 MEDTRONIC 12MM Used EUPHORA *[id number] 17:15 Measurement Analytics 30 REYNA INDEFLATOR Used *[id number] 16:31 MERIT MEDICAL WIRE, 3MMJ .035 180CM 180CM Used *[id number] 16:43 MERIT [employer]ICAL WIRE, EXCHANGE 260CM 3MMJ 260CM Used *[id number] 16:43 MERIT [employer]ICAL WIRE, STRAIGHT TIP .035 * Used *[id number] 16:31 NAMIC MANIFOLD, 4 PORT * Used *[id number] 16:31 NYCOMED OMNIPAQUE, 350 MG, 150ML 150ML [id number] Used [id number] 16:31 GRAFF MEDICAL BLANKET,WARM AIR CCL * Used *[id number] 16:31 TERUMO MEDICAL SHEATH, FR5 TERUMO (10CM) FR 5 Used *[id number] 16:32 TERUMO MEDICAL SHEATH, FR6 TERUMO (10CM) FR 6 Used *[id number] Equipment Model, Serial, Lot Number and Expiration Data Description Model Number Serial Number Lot Number Expiration Date ANGIOSEAL, FR6 VIP [id number] 09-06-2018 BALLOON, 2.75 X 15MM NC [id number] 06-24-2019 EUPHORA BALLOON, 3.0 X 12MM NC [id number] 06-18-2019 EUPHORA WIRE, STRAIGHT TIP .035 [id number] 05-07-2019 History: Current Medications Medication Dosage/Unit Route Frequency Last Date/Time Taken ASA BRILLINTA HEPARIN History: Allergies Allergy Reaction No Known Allergies ENVIRONMENTAL History: Risk Factors Family History of Hypertension Dyslipidemia Previous TX Previous Heart Failure Premature CAD Yes Yes Yes No No Prior Valve Prior PCI Prior PCIDate Prior CABG Prior CABGDate Surgery No Yes 08/05/2017 Yes 01/09/2018 Cerebrovascular Peripheral Artery Chronic Lung On Dialysis Diabetes Disease Disease Disease No No No No Yes History: Symptoms/Diagnosis Selection Items Chest pain History: CV Disease Selection Items Known CAD History: Stress Tests Stress or Imaging Studies Performed No History: Other Current Smoker Method Quit No Cigarettes 40 Years Ago Labs Hgb (g/dl) Hct (%) RBC (MIL/MM3) WBC (l/cumm) 11.60-17.00 35.00-51.00 4.00-5.90 4.00-11.00 14.1 41.5 4.8 8.9 Glucose (mg/dl) BUN (mg/dl) Creatinine (mg/dl) BUN:Creatinine (1:x) 74.00-106.00 7.00-18.00 0.50-1.30 10.00-20.00 88 19 0.8 23.8 Na (meq/l) K (meq/l) Cl (meq/l) CO2 (mmol/L) Ca (mg/dl) 136.00-145.00 3.50-5.10 98.00-107.00 21.00-32.00 8.50-10.10 140 3.8 105 26.2 8.7 PT (sec) PTT (sec) INR (PTT:PT) 9.80-11.60 24.30-30.10 0.90-1.10 10.3 64.6 1 Troponin I (ng/ml) CPK (u/l) CPK-MB (ng/ML) 0.02-0.05 26.00-308.00 0.50-3.60 0.02 141 4.5 Medication Medication Total Dose (Bolus/Oral) Medication Total Dosage/Unit 1% XYLOCAINE 20 mL BRILLINTA 180 mg FENTANYL 25 mcg HEPARIN 6600 units NTG (IC) 200 mcg VERSED 0.5 mg Medications (Bolus/Oral) Medication Time Given Dosage/Unit Administered By Reason VERSED 12/16/2017 4:27:38 PM 0.5 mg Latisha Storm 0.5 mg VERSED given in lab by Latisha Storm RN via Peripheral IV. 1% XYLOCAINE 12/16/2017 4:28:26 PM 20 mL Rosales Gallardo 20 mL 1% XYLOCAINE given in lab by Rosales Gallardo in Right Groin via Subcutaneous. FENTANYL 12/16/2017 4:28:52 PM 25 mcg Latisha Storm 25 mcg FENTANYL given in lab by Latisha Storm RN via Peripheral IV. HEPARIN 12/16/2017 5:04:45 PM 6600 units Latisha Storm 6600 units HEPARIN given in lab by Latisha Storm RN via Peripheral IV. NTG (IC) 12/16/2017 5:35:20 PM 200 mcg Rosales Gallardo 200 mcg NTG (IC) given in lab by Rosales Gallardo via Intra-coronary. BRILLINTA 12/16/2017 5:48:50 PM 180 mg Latisha Storm 180 mg BRILLINTA given in lab by Latisha Storm, RN in Per mouth via Oral. Medication (Drip) Medication Time Given Dosage/Unit Concentration/Unit Diluent (ml) Solutio n IV Solutions 12/16/2017 4:03:20 PM 0 mL (IV) 500 NaCl .9 Patient arrived on IV Solutions in Right Antecubital via Peripheral IV. Pump/Drip Flow = 20 ml/hr usi ng NaCl .9. Initial Case Assessment Cardiovascular HR Rhythm NIBP Chest Pain 69 reg 139/81 0 Edema Present Skin color Skin None Normal Warm Circulatory - Right Pulses Dorsalis Pedis Femoral 3 3 Scale (0,1,2,3,4,d) Circulatory - Left Pulses Dorsalis Pedis Femoral 3 3 Scale (0,1,2,3,4,d) Circulatory - Lower Extremities Color Lower Right Color Lower Left Normal Normal Neurological State Oriented to time-place- Alert Moves all extremities person Respiration - General Respiration Rate SpO2 (%) (B/min) 8 96 Chronological Log Time Study Chronological Log 15:50:50 Patient arrived via Bed. 15:51:10 Patient Name, D.O.B, / Armband Verified By R.N. 15:52:13 Consent signed by the physician and the patient and verified by the Insulation Power Unit Tender staff. 15:53:17 Pre-op and post- op instructions given; patient acknowledges understanding of instructions. 15:54:21 Verbal Stimulation=2 Physical Stimulation=2 Airway=2 Respiration=2 TOTAL=8. (0=absent, 1=li mited, 2=present) Vitals capture started with the following parameters, Patient=Adult, Interval=5 min, Initial Pr nthyby=327 mmHg, 15:56:27 Deflation Rate=5 mmHg, Cuff placed on left arm 15:57:09 HR=66 bpm, CMQO=309/79 mmhg, SpO2=97.0 %, Resp=13 B/min, Pain=0, Elian=10, Michelle=2 15:57:44 Reference ECG taken 16:01:56 arrived with nitro paste on 1 inch right shoulder 16:02:06 HR=65 bpm, IHHZ=247/81 mmhg, SpO2=96.0 %, Resp=13 B/min, Pain=0, Elian=10, Michelle=2 16:02:31 A # 20 IV was noted in the Antecubital (right). Grade = 0 16:03:20 Patient arrived on IV Solutions in Right Antecubital via Peripheral IV. Pump/Drip Flow = 20 ml/hr using NaCl .9. 16:03:39 History and physical on the chart or being dictated. Assessment: Initial Case, HR=69 BPM, Rhythm=reg, JWPN=563/81 mmhg, Chest Pain=0, Edema=None, Co morales=Normal, Skin = Warm Right Pulses: Patrick Ped=3, Femoral=3 Left Pulses: Patrick Ped=3, Femoral=3 16:03:40 Lower Right Extremities: Color=Normal Lower Left Extremities: Color=Normal Neurological: State=Alert, Ox3, MARIO Respiration: Resp=8 B/min, SpO2=96 % 16:04:19 Bilateral groins prepped with 2% chlorhexidine, and draped after a 3 minute waiting time. 16:07:03 HR=69 bpm, USHA=463/88 mmhg, SpO2=95.0 %, Resp=9 B/min, Pain=0, Elian=10, Michelle=2 16:08:38 Pressure channel 1 zeroed. 16:12:08 HR=68 bpm, LKFV=807/75 mmhg, SpO2=96.0 %, Resp=10 B/min, Pain=0, Elian=10, Michelle=2 16:12:37 MD paged 16:17:36 HR=68 bpm, KJCB=108/80 mmhg, SpO2=96.0 %, Resp=14 B/min, Pain=0, Elian=10, Michelle=2 16:21:24 MD arrived. 16:22:02 HR=70 bpm, RFWJ=253/77 mmhg, SpO2=96.0 %, Resp=13 B/min, Pain=0, Elian=10, Michelle=2 16:27:05 HR=67 bpm, TFJL=257/81 mmhg, SpO2=92.0 %, Resp=10 B/min, Pain=0, Elian=10, Michelle=2 Time Out. Correct patient, correct procedure, correct physician, power injector not loaded with contrast with surgical 16:27:17 team present. Time Out Concurred by MD and individual staff in procedure. 16:27:36 Case Start 16:27:38 0.5 mg VERSED given in lab by Latisha Storm, RN via Peripheral IV. 16:28:19 Verbal Stimulation=2 Physical Stimulation=2 Airway=2 Respiration=2 TOTAL=8. (0=absent, 1=li mited, 2=present) 16:28:26 20 mL 1% XYLOCAINE given in lab by Rosales Gallardo in Right Groin via Subcutaneous. 16:28:52 25 mcg FENTANYL given in lab by Latisha Storm, RN via Peripheral IV. 16:30:37 Access site was Right Femoral Artery with mp kit 16:30:48 A wire was inserted via Fem Art (right). 16:30:50 A SHEATH, FR6 TERUMO (10CM) FR 6 was advanced into the Fem Art (right) using the Percut[place]o us technique. 16:32:00 HR=72 bpm, JARA=791/83 mmhg, SpO2=93.0 %, Resp=9 B/min, Pain=0, Elian=10, Michelle=2 Recorded Pressure: Ao, HR=72, Condition=Condition 1 16:32:44 (Aorta) Ao 137/68/94 16:34:06 An injection in the Fem Art (right) was made through the SHEATH, FR6 TERUMO (10CM) FR 6. A JR 4.0 INFINITI CATHETER FR 6 was advanced over a wire. OMNIPAQUE, 350 MG, 150ML 150ML was us ed for 16:34:58 injections. 16:37:38 HR=66 bpm, AGKA=959/83 mmhg, SpO2=97.0 %, Resp=10 B/min, Pain=0, Elian=10, Michelle=2 16:38:43 A WIRE, 3MMJ .035 180CM 180CM was inserted via Fem Art (right). 16:42:06 HR=68 bpm, RQJW=362/85 mmhg, SpO2=98.0 %, Resp=8 B/min, Pain=0, Elian=10, Michelle=2 Recorded Pressure: LV, HR=74, Condition=Condition 1 16:42:20 (Left Ventricle) LV 134/11/12 Recorded Pressure: LV, Ao, HR=65, Condition=Condition 1 16:42:35 (Left Ventricle) LV 144/2/15, (Aorta) Ao 137/76/100 Recorded Pressure: Ao, HR=68, Condition=Condition 1 16:43:02 (Aorta) Ao 125/70/94 16:43:33 The RCA was injected and visualized at various angles. OMNIPAQUE, 350 MG, 150ML 150ML used . 16:43:52 The SVG-RCA was injected and visualized at various angles. OMNIPAQUE, 350 MG, 150ML 150ML u sed. After removing the current catheter a SANDEEP INFINITI CATHETER FR 6 was advanced over a WIRE, EXCH MAYA 260CM 16:46:16 3MMJ 260CM. 16:47:05 HR=67 bpm, AXJT=796/77 mmhg, SpO2=98.0 %, Resp=8 B/min, Pain=0, Elian=10, Michelle=2 16:47:16 The CHIN-LAD was injected and visualized at various angles. OMNIPAQUE, 350 MG, 150ML 150ML used. After removing the current catheter a MPA-2 INFINITI CATHETER FR 6 was advanced over a WIRE, 3M MJ .035 180CM 16:48:44 180CM. 16:52:04 HR=69 bpm, DSKO=282/87 mmhg, SpO2=98.0 %, Resp=8 B/min, Pain=0, Elian=10, Michelle=2 16:52:19 The SVG-RCA was injected and visualized at various angles. OMNIPAQUE, 350 MG, 150ML 150ML u sed. After removing the current catheter a JL 4.0 INFINITI CATHETER FR 6 was advanced over a WIRE, 3 MMJ .035 180CM 16:54:40 180CM. 16:56:33 The LCA was injected and visualized at various angles. OMNIPAQUE, 350 MG, 150ML 150ML used . 16:57:08 HR=63 bpm, YLIH=567/85 mmhg, SpO2=99.0 %, Resp=10 B/min, Pain=0, Elian=10, Michelle=2 16:59:27 Catheter was removed 17:02:07 HR=67 bpm, OVRR=980/82 mmhg, SpO2=98.0 %, Resp=9 B/min, Pain=0, Elian=10, Michelle=2 A MPA-1 GUIDE CATHETER FR 6 was advanced over a wire. OMNIPAQUE, 350 MG, 150ML 150ML was used f or 17:02:56 injections. 17:04:45 6600 units HEPARIN given in lab by Latisha Storm RN via Peripheral IV. 17:05:30 A WIRE, BALANCE MIDDLEWEIGHT 190CM 190CM was inserted via Fem Art (right). 17:06:54 Interventional wire has crossed the lesion 17:07:10 HR=70 bpm, ETSV=977/83 mmhg, SpO2=99.0 %, Resp=12 B/min, Pain=0, Elian=10, Michelle=2 17:09:37 A WIRE, SPIDERFX 3.0 X 320/190CM 30 X 320CM was inserted via Fem Art (right). 17:12:05 HR=67 bpm, ISNG=047/82 mmhg, SpO2=99.0 %, Resp=14 B/min, Pain=0, Elian=10, Michelle=2 17:12:13 spider Wire removed A BALLOON, 2.0 X 12MM EUPHORA 12MM was inserted over WIRE, BALANCE MIDDLEWEIGHT 190CM 190CM via the 17:14:24 SVG-RCA. A BALLOON, 2.0 X 12MM EUPHORA 12MM over a WIRE, BALANCE MIDDLEWEIGHT 190CM 190CM in the SVG-RCA was 17:15:14 inflated using a 30 REYNA INDEFLATOR at 10 reyna for 20 sec. 17:16:05 Balloon Removed. 17:16:29 Activated Clotting Time Drawn 17:17:08 HR=70 bpm, BUDI=952/80 mmhg, SpO2=99.0 %, Resp=15 B/min, Pain=0, Elian=10, Michelle=2 17:19:39 A WIRE, SPIDERFX 3.0 X 320/190CM 30 X 320CM was inserted via Fem Art (right). 17:20:55 basket deployed A BALLOON, 2.75 X 15MM NC EUPHORA 15MM was inserted over WIRE, SPIDERFX 3.0 X 320/190CM 30 X 32 0CM via 17:21:27 the SVG-RCA. 17:22:09 HR=69 bpm, EZZD=428/88 mmhg, MtX0=906.0 %, Resp=10 B/min, Pain=0, Elian=10, Michelle=2 17:22:39 ACT (Normal Range 90-180) = 315 A BALLOON, 2.75 X 15MM NC EUPHORA 15MM over a WIRE, SPIDERFX 3.0 X 320/190CM 30 X 320CM in the SVG-RCA 17:23:41 was inflated using a 30 REYNA INDEFLATOR at 16 reyna for 30 sec. A BALLOON, 2.75 X 15MM NC EUPHORA 15MM over a WIRE, SPIDERFX 3.0 X 320/190CM 30 X 320CM in the SVG-RCA 17:24:18 was inflated using a 30 REYNA INDEFLATOR at 16 reyna for 15 sec. A BALLOON, 2.75 X 15MM NC EUPHORA 15MM over a WIRE, SPIDERFX 3.0 X 320/190CM 30 X 320CM in the SVG-RCA 17:25:46 was inflated using a 30 REYNA INDEFLATOR at 16 reyna for 20 sec. 17:26:27 Balloon Removed. 17:27:12 HR=65 bpm, FXCS=896/81 mmhg, SpO2=99.0 %, Resp=11 B/min, Pain=0, Elian=10, Michelle=2 17:27:27 The SVG-RCA was injected and visualized at various angles. OMNIPAQUE, 350 MG, 150ML 150ML u sed. A BALLOON, 3.0 X 12MM NC EUPHORA 12MM was inserted over WIRE, SPIDERFX 3.0 X 320/190CM 30 X 320 CM via 17:29:17 the SVG-RCA. A BALLOON, 3.0 X 12MM NC EUPHORA 12MM over a WIRE, SPIDERFX 3.0 X 320/190CM 30 X 320CM in the S VG-RCA 17:30:15 was inflated using a 30 REYNA INDEFLATOR at 12 reyna for 30 sec. A BALLOON, 3.0 X 12MM NC EUPHORA 12MM over a WIRE, SPIDERFX 3.0 X 320/190CM 30 X 320CM in the S VG-RCA 17:31:19 was inflated using a 30 REYNA INDEFLATOR at 12 reyna for 12 sec. 17:32:11 HR=64 bpm, AUPU=220/87 mmhg, SpO2=99.0 %, Resp=15 B/min, Pain=0, Elian=10, Michelle=2 17:33:01 Balloon Removed. 17:33:28 The SVG-RCA was injected and visualized at various angles. OMNIPAQUE, 350 MG, 150ML 150ML used. 17:34:21 retreival catheter inserted for basket retreival 17:35:20 200 mcg NTG (IC) given in lab by Rosales Gallardo via Intra-coronary. 17:36:34 spider Wire removed 17:37:12 HR=67 bpm, KHQR=984/82 mmhg, YsC9=118.0 %, Resp=8 B/min, Pain=0, Elian=10, Michelle=2 17:37:52 The SVG-RCA was injected and visualized at various angles. OMNIPAQUE, 350 MG, 150ML 150ML used. 17:39:31 A WIRE, 3MMJ .035 180CM 180CM was inserted via Fem Art (right). 17:39:52 guide Catheter was removed over a jwire 17:42:38 HR=66 bpm, CZQX=018/85 mmhg, SpO2=97.0 %, Resp=8 B/min, Pain=0, Elian=10, Michelle=2 17:43:21 ANGIOSEAL, FR6 VIP FR 6 placement in the Fem Art (right) 17:44:29 Case End 17:44:39 Sterile dressing applied to site 17:44:40 No case complications noted. 17:44:41 Cine recording checked. 17:44:42 Bedside Report will be given. 17:44:52 Verbal Stimulation=2 Physical Stimulation=2 Airway=2 Respiration=2 TOTAL=8. (0=absent, 1=l imited, 2=present) 17:45:03 A Left Heart Cath was performed. 17:45:08 Clinical correlaton risk stratification. 17:47:49 HR=66 bpm, SPCN=872/87 mmhg, SpO2=99.0 %, Resp=13 B/min, Pain=0, Elian=10, Michelle=2 17:48:50 180 mg BRILLINTA given in lab by Latisha Storm, PARMINDER in Per mouth via Oral. 17:52:06 Vitals capture stopped. End Study - Contrast Media Used In Study Contrast Total Opened (mL) Total Used (mL) Total Wasted (mL) Omnipaque 170 170 0 End Study - Maximum Contrast Load Max Contrast Load (mL) 591.2 End Study - Radiation Exposure Fluoro Time (minutes) 20.5 End Study - Sheaths Sheaths Pulled By Sheath Hold Time (min) Rosales Gallardo End Study - Patient Disposition Complications Transferred To Interventional Outcome No Regular Bed successful
[2017-12-16] MEDS ORDERED: MORPHINE SULFATE 4 MG/ML INJ IV PUSH PRN (18:15)
[2017-12-16] MEDS ORDERED: oxyCODONE/ACETAMINOPHEN 10 MG/325 MG TAB PO PRN (18:15)
[2017-12-16] MEDS ORDERED: oxyCODONE/ACETAMINOPHEN 5 MG/325 MG TAB PO PRN (18:15)
[2017-12-16] MEDS ORDERED: MISC INFORMATION XX ONE (18:15)
[2017-12-16] MEDS: TICAGRELOR 90 MG TAB PO SCH (18:57)
[2017-12-16] MEDS: METOPROLOL TARTRATE 25 MG TAB PO SCH (20:58)
[2017-12-16] MEDS ORDERED: ATORVASTATIN 80 MG TAB PO SCH (21:00)
--- NOTE | 2017-12-16 21:21 | EKG ---
Date Performed: 12/15/2017 Time Performed: 21:31:27 PTAGE: 62 years EKG: Sinus rhythm WITH FIRST DEGREE AV BLOCK WITH OCCASIONAL VENTRICULAR PREMATURE COMPLEXES POSSIBLE RIGHT VENTRICULA R HYPERTROPHY ANTEROSEPTAL MYOCARDIAL INFARCTION , OF INDETERMINATE AGE ABNORMAL ECG PREVIOUS TRACING : 12/15/2017 13.44 Since the previous tracing, no significant change noted DOCTOR: Tushar Morris Interpretating Date/Time 12/16/2017 21:21:10
--- NOTE | 2017-12-16 21:37 | EKG ---
Date Performed: 12/15/2017 Time Performed: 13:44:31 PTAGE: 62 years EKG: Sinus rhythm MARKED RIGHT AXIS DEVIATION ANTEROSEPTAL MYOCARDIAL INFARCTION PREVIOUS TRACING : 08/05/2017 07.26 Since the previous tracing, no significant change not ed DOCTOR: Tushar Morris Interpretating Date/Time 12/16/2017 21:35:49
[2017-12-17] VITALS (17 sets, daily range): BP systolic 108–156; BP diastolic 56–87; PULSE 66–82; RESP 16–20; TEMP 98.1–98.8; O2SAT 94–98
--- NOTE | 2017-12-17 00:29 | MB ---
cc: Rosales Gallardo DO DATE: 12/16/2017 REASON FOR CONSULTATION: Chest pain. HISTORY OF PRESENT ILLNESS: Bassam Stack is a pleasant 62-year-old male, who sees my partner, Dr. Stephen, in the office and presented to [facility] due to chest pain. He previously underwent PCI of his saphenous vein graft to RCA and has known residual oxaingjv-ji-fztsue disease of his left main and obtuse marginal. He states that after his previous PCI he did overall well but, over the past 2-3 weeks, he has been noticing chest pain with any type of strenuous activity. As he does more, the chest pain gets worse and, as he rests, chest pain goes away. Chest pain is midsternal in nature. Overall, it feels like pressure. PAST MEDICAL HISTORY: 1. Coronary artery disease. 2. Hypertension. 3. Diabetes mellitus. 4. Hypothyroidism. 5. BPH. PAST SURGICAL HISTORY: 1. CABG x3 (01/04/2015), CHIN to LAD, saphenous vein graft to OM, saphenous vein graft to PDA. 2. Cardiac catheterization (08/05/2017), left main, 70% ostial. LAD 95% stenosis. Ramus normal size vessel with some tortuosity. Left circumflex gives off one obtuse marginal with 80% lesion. RCA diffuse 60% disease with a 95% lesion noted in the PDA. CHIN to LAD is patent with the distal LAD having a 95% lesion and a 1.5 mm vessel. Saphenous vein graft to OM occluded. Saphenous vein graft to PDA 95% disease, status post Jamul drug-eluting stent (2.5 x 22). ALLERGIES: NO KNOWN DRUG ALLERGIES. MEDICATIONS: 1. Aspirin 81 mg daily. 2. Brilinta 90 mg b.i.d. 3. Lipitor 80 mg every night. 4. Imdur 30 mg daily. 5. Nitro sublingual as needed. 6. Metoprolol tartrate 25 mg b.i.d. 7. Lisinopril 20 mg daily. 8. Losartan 25 mg daily. 9. Montelukast 10 mg every night. 10. Janumet daily. 11. Trulicity 1.5 weekly. 12. Invokana 300 mg daily. 13. Jardiance 25 mg daily. 14. The patient states that there is some confusion on his medicines and his will bring in the official list, as he is in the midst of changing some of his medications. FAMILY HISTORY: Denies sudden cardiac within the family. SOCIAL HISTORY: The patient previously smoked only in his 20s. He denies alcohol or drug abuse. REVIEW OF SYSTEMS: Fourteen systems were reviewed, including osteopathic; pertinent positives and negatives above, otherwise, negative. PHYSICAL EXAMINATION: VITAL SIGNS: Temperature 98.1, heart rate 69, blood pressure 141/82, respirations 18, pulse oximetry 96% in room air. GENERAL: The patient appears well and in no acute distress. Alert, awake, oriented x3. HEENT: Extraocular muscles intact. Mucous membranes moist. NECK: Is supple. No JVD at 45 degrees. No carotid bruits heard bilaterally. Carotid upstroke is brisk in nature. HEART: Is regular rate and rhythm. Positive first and second heart sounds with no noted murmurs, gallops or rubs. LUNGS: Are clear to auscultation bilaterally. No wheezes, rales or rhonchi. ABDOMEN: Is soft, nontender, nondistended. No organomegaly noted. EXTREMITIES: Show no clubbing, cyanosis or edema. Femoral and distal pulses are intact bilaterally. NEUROLOGIC: No focal deficits. SKIN: Warm, dry and intact. OSTEOPATHIC: No kyphoscoliosis lordosis or paraspinal tender points. LABWORK: Hemoglobin 14.1, hematocrit 41.5, platelets 193. Potassium 3.8, BUN 19, creatinine 0.96. Troponin negative x3. Electrocardiogram (12/15/2017 at 21:31) sinus rhythm with first degree AV block, left bundle branch block, PVCs. IMPRESSIONS: 1. Unstable angina ([place] Anginal Class 3), on antianginal medications. 2. Hypertension. 3. Diabetes. 4. Coronary artery disease, as above. 5. Hypothyroidism. 6. BPH. RECOMMENDATIONS: 1. Mr. Stack has known residual coronary artery disease, as well as previous PCI and presented with unstable angina while on antianginal medications. Because of this, he will be recommended cardiac catheterization. 2. Risks, benefits and alternatives have been explained to him and he consented to such. 3. He will continue on his current cardiac medications including aspirin, Brilinta, metoprolol and Lipitor. There is some confusion as to why he would be on lisinopril and losartan and his will bring in the medication list to further delineate what he is truly on. 4. Further recommendations will be made after coronary visualization. Thank you for allowing me to see Bassam Stack. If there are any questions, please do not hesitate to call. DO MICHAEL Davey/ROHAN , 11:47 PM , 12:29 AM
--- NOTE | 2017-12-17 02:14 | MA ---
cc: Rosales Gallardo DO DATE: 12/16/2017 PROCEDURE: Left heart catheterization, coronary angiogram, bypass angiogram, moderate sedation 75 minutes, filter wire for distal protection, balloon angioplasty in-stent restenosis of saphenous vein graft to right coronary artery, Angio-Seal femoral closure. PREPROCEDURE DIAGNOSES: Unstable angina, chest pain, coronary artery disease, history of coronary artery bypass graft. POSTPROCEDURE DIAGNOSES: History of coronary artery bypass graft x 3 (2/3 grafts patent), balloon angioplasty of in-stent restenosis of saphenous vein graft to right coronary artery. MEDICATIONS: Versed 0.5 mg, fentanyl 25 mcg, heparin 6600 units, nitroglycerin 200 mcg, Brilinta 180 mg. CONTRAST USED: 170 mL FLUOROSCOPY: 20.1 minutes. MODERATE SEDATION: 75 minutes. FRAILTY SCORE: 3. ESTIMATED BLOOD LOSS: 10 mL PROCEDURAL SUMMARY: Bassam Stack is a pleasant 62-year-old male who sees my partner, Dr. Nunez in the office and presented to [place] due to chest pain. Because of the significance of his chest pain and known coronary artery disease with previous residual left main/obtuse marginal disease he was recommended cardiac catheterization. Risks, benefits and alternatives were explained to him and he consented to such. He was brought to the lab and prepped in the usual sterile fashion. The right femoral artery was accessed using a modified Seldinger technique and placement of a 6-Khmer sheath. This was easily aspirated and flushed. A JR4 was advanced over a J-wire to the ascending aorta and across the aortic valve for measurement of left ventricular pressure. This was pulled back across the aortic valve showing no significant gradient of aortic stenosis. JR4 was then used to perform selective angiography of the RCA, and saphenous vein graft to the RCA. This is exchanged out for an SANDEEP catheter which was used for selective angiography of the CHIN to LAD and this was exchanged out for an MP2 which was used to perform selective angiography of the saphenous vein graft to the RCA. JR4 was used for selective angiography of the right coronary artery system. This was exchanged out for an IM catheter which was used for selective angiography of the CHIN to LAD. This was then exchanged out for a multipurpose which was used for selective angiography of the saphenous vein graft to the RCA. This was then exchanged out for a JL4 which was used for selective angiography of the left coronary artery system. Please see notes below for intervention. FINDINGS: LEFT MAIN: Ostial 70% disease. It bifurcates into an LAD and circumflex. LEFT ANTERIOR DESCENDIN% disease throughout the proximal portion. Mid portion has a 95% lesion and distal to this competitive flow is noted. LEFT CIRCUMFLEX: Normal size vessel with mild luminal irregularities. It gives off 1 major obtuse marginal with a 70% to 80% lesion. RIGHT CORONARY ARTERY: Diffuse 50% to 60% disease. Distally, there is an 80% lesion in the PDA. LEFT INTERNAL MAMMARY ARTERY TO LEFT ANTERIOR DESCENDING: Patent. It fills the LAD both antegrade and retrograde and there is diffuse disease of the LAD with a 95% lesion in the apical portion of the LAD which is overall a small vessel. SAPHENOUS VEIN GRAFT TO OBTUSE MARGINAL: Known to be occluded. SAPHENOUS VEIN GRAFT TO RIGHT CORONARY ARTERY: With stent patent with 90% in-stent restenosis. LEFT VENTRICULAR END DIASTOLIC PRESSURE: 15. INTERVENTION: Because of the significance of disease in the saphenous vein graft to PDA I felt that this was the culprit lesion. The patient does have known left main and obtuse marginal disease, but this looks no different than previous, and the patient has had extensive pain over the past 2-3 weeks, most likely due to the saphenous vein graft to RCA. A multipurpose guide was engaged into the saphenous vein graft to RCA. The patient was given heparin as an anticoagulant. A BMW wire was used to cross into the distal portion of the saphenous vein graft. This was exchanged out for a wire a Spider filter (3 mm). A 2.2 x 12 balloon was used. A BMW wire was advanced into the distal portion of the saphenous vein graft. I attempted to take across a Spider filter, but was unable to and so a compliant balloon (2 x 12) was used to dilate the lesion. The Spider filter was then placed into the mid portion of the saphenous vein graft and the BMW wire was removed. A noncompliant balloon (2.75 x 15) was then inflated over the lesion multiple times. This was exchanged out for a noncompliant balloon (3 x 12), which was used to further dilate the proximal portion of the stent. Spider filter was removed. Final angiogram shows a well opposed stent with no perforations or dissections. Guide was removed. Angio-Seal was used for closure of the arteriotomy site. The patient was not given his Brilinta this morning, so he was given 180 mg reload of Brilinta tonight. 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 INTERVENTIONAL DATA: Vessel: Saphenous vein graft to RCA, lesion length 15, pre-SHERRI 2, post-SHERRI 3, plus stenosis 10%. IMPRESSIONS: 1. Unstable angina, status post balloon angioplasty of in-stent restenosis of saphenous vein graft to right coronary artery. 2. Residual moderate to severe coronary artery disease of left main and obtuse marginal not supplied by a vein graft. 3. Coronary artery bypass graft x 3 (2/3 grafts patent). RECOMMENDATIONS: 1. Mr. Stack underwent PCI as above and will be recommended continuation of his aspirin, Brilinta, statin, beta fabricio and CIERRA inhibitor therapy. 2. He will be watched overnight and if stable in the morning discharged home. 3. We will continue to follow him and if further pain, consideration will be made for PCI of his left main and obtuse marginal. Thank you for allowing me to see Bassam Stack. If there are any questions, please do not hesitate to call. Rosales Gallardo DO VGP/rt , 01:03 AM , 02:13 AM
[2017-12-17 08:16] LABS: AUTOMATED NEUTROPHIL # 6.6 TH/MM3 (1.8-7.7); BASOPHIL # 0.1 TH/MM3 (0-0.2); BASOPHIL % 0.9 % (0.0-2.0); EOSINOPHIL # 0.3 TH/MM3 (0-0.4); EOSINOPHIL % 2.9 % (0.0-4.0); HEMATOCRIT 43.6 % (39.0-51.0); HEMOGLOBIN 14.6 GM/DL (13.0-17.0); LYMPH % 18.4 % (9.0-44.0); LYMPHOCYTE # 1.8 TH/MM3 (1.0-4.8); MEAN CELL VOLUME 84.8 FL (80.0-100.0); MEAN CORPUSCULAR HEMOGLOBIN 28.4 PG (27.0-34.0); MEAN CORPUSCULAR HGB CONC 33.5 % (32.0-36.0); MEAN PLATELET VOLUME 8.8 FL (7.0-11.0); MONO % 8.1 % (0.0-8.0); MONOCYTE # 0.8 TH/MM3 (0-0.9); NEUT % 69.7 % (16.0-70.0); PLATELET COUNT 202 TH/MM3 (150-450); RED BLOOD COUNT 5.15 MIL/MM3 (4.50-5.90); WHITE BLOOD COUNT 9.5 TH/MM3 (4.0-11.0)
[2017-12-17] MEDS: METOPROLOL TARTRATE 25 MG TAB PO SCH (08:50)
[2017-12-17] MEDS: TICAGRELOR 90 MG TAB PO SCH (08:50)
[2017-12-17] MEDS: ASPIRIN EC 81 MG TABEC PO SCH (08:50)
[2017-12-17] MEDS: SODIUM CHLORIDE 0.9% FLUSH 10 ML FLUSH IV FLUSH SCH (08:50)
[2017-12-17 08:52] LABS: CALCIUM 8.9 MG/DL (8.5-10.1); CREATININE 0.85 MG/DL (0.60-1.30)
[2017-12-17] MEDS ORDERED: ISOSORBIDE MONONITRATE 30 MG CR TAB (IMDUR) PO SCH (09:00)
--- NOTE | 2017-12-17 12:47 | HHI.PR ---
Subjective Remarks History from patient, ER physician communication, and review of medical records. 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 Patient also reported that he was having chest pains even after this stent placement but Jarrell was doing its job at controlling it for most part. However he noted that the frequencies of attacks and pains have been coming more often and particularly when he exerts and walks around. 12-16 Patient denies chest pain short of breath no fever or chills now Initially he came with feeling of left chest heaviness without transfer, patient has a history of CABG plan for heart cath today 12-17 WILL DC TO HOME AFTER CLEARED BY CARDIOLOGY SP ANGIOPLASTY- NO STENTS PLACED DC TO HOME TODAY DW CARDIOLOGY AND RN AND PT Objective Vitals Vital Signs Date Time Temp Pulse Resp B/P (MAP) Pulse Ox O2 Delivery O2 Flow Rate FiO2 12/17/17 11:00 82 12/17/17 11:00 98.1 79 20 114/56 (75) 98 12/17/17 11:00 98 Room Air 12/17/17 10:00 81 12/17/17 09:00 74 12/17/17 08:00 78 12/17/17 07:45 80 12/17/17 07:45 95 Room Air 12/17/17 07:45 98.8 70 20 144/85 (104) 95 12/17/17 06:17 72 12/17/17 05:14 73 12/17/17 04:17 77 12/17/17 03:25 66 12/17/17 03:08 94 Room Air 12/17/17 03:08 98.2 67 16 156/87 (110) 94 12/17/17 02:04 70 12/17/17 01:40 69 12/17/17 00:00 67 12/16/17 23:10 95 Room Air 12/16/17 23:10 74 12/16/17 23:10 97.9 73 17 122/73 (89) 95 12/16/17 22:32 76 12/16/17 21:00 76 12/16/17 20:15 80 12/16/17 19:35 94 Room Air 12/16/17 19:35 75 12/16/17 19:20 98.0 79 16 146/70 (95) 94 12/16/17 17:57 96 Room Air I/O 12/16/17 12/16/17 12/16/17 12/17/17 12/17/17 12/17/17 07:00 15:00 23:00 07:00 15:00 23:00 Intake Total 480 ml 480 ml Output Total 1575 ml Balance 480 ml -1095 ml Intake Oral 480 ml 480 ml Output Urine Total 1575 ml # Voids 3 # Bowel Movements 0 Result Diagram: 12/17/17 0655 12/17/17 0655 Other Results Laboratory Tests Test 12/15/17 14:30 12/15/17 19:21 12/16/17 00:40 12/16/17 04:26 White Blood Count 8.9 TH/MM3 8.9 TH/MM3 Red Blood Count 4.97 MIL/MM3 4.86 MIL/MM3 Hemoglobin 14.3 GM/DL 14.1 GM/DL Hematocrit 42.6 % 41.5 % Mean Corpuscular Volume 85.9 FL 85.4 FL Mean Corpuscular Hemoglobin 28.7 PG 29.1 PG Mean Corpuscular Hemoglobin Concent 33.5 % 34.0 % Red Cell Distribution Width 14.5 % 14.2 % Platelet Count 209 TH/MM3 193 TH/MM3 Mean Platelet Volume 8.6 FL 9.1 FL Neutrophils (%) (Auto) 69.9 % 59.8 % Lymphocytes (%) (Auto) 18.3 % 27.6 % Monocytes (%) (Auto) 7.8 % 7.9 % Eosinophils (%) (Auto) 2.8 % 3.3 % Basophils (%) (Auto) 1.2 % 1.4 % Neutrophils # (Auto) 6.2 TH/MM3 5.3 TH/MM3 Lymphocytes # (Auto) 1.6 TH/MM3 2.5 TH/MM3 Monocytes # (Auto) 0.7 TH/MM3 0.7 TH/MM3 Eosinophils # (Auto) 0.2 TH/MM3 0.3 TH/MM3 Basophils # (Auto) 0.1 TH/MM3 0.1 TH/MM3 CBC Comment DIFF FINAL DIFF FINAL Differential Comment Prothrombin Time 10.3 SEC Prothromb Time International Ratio 1.0 RATIO Activated Partial Thromboplast Time 24.7 SEC 63.2 SEC 64.6 SEC Blood Urea Nitrogen 18 MG/DL 19 MG/DL Creatinine 1.20 MG/DL 0.86 MG/DL Random Glucose 84 MG/DL 88 MG/DL Calcium Level 8.8 MG/DL 8.7 MG/DL Magnesium Level 1.9 MG/DL Sodium Level 142 MEQ/L 140 MEQ/L Potassium Level 4.4 MEQ/L 3.8 MEQ/L Chloride Level 106 MEQ/L 105 MEQ/L Carbon Dioxide Level 25.9 MEQ/L 26.2 MEQ/L Anion Gap 10 MEQ/L 9 MEQ/L Estimat Glomerular Filtration Rate 61 ML/MIN 90 ML/MIN Total Creatine Kinase 192 U/L 159 U/L 141 U/L Creatine Kinase MB 4.5 NG/ML Troponin I LESS THAN 0.02 NG/ML LESS THAN 0.02 NG/ML LESS THAN 0.02 NG/ML Test 12/17/17 06:55 White Blood Count 9.5 TH/MM3 Red Blood Count 5.15 MIL/MM3 Hemoglobin 14.6 GM/DL Hematocrit 43.6 % Mean Corpuscular Volume 84.8 FL Mean Corpuscular Hemoglobin 28.4 PG Mean Corpuscular Hemoglobin Concent 33.5 % Red Cell Distribution Width 14.0 % Platelet Count 202 TH/MM3 Mean Platelet Volume 8.8 FL Neutrophils (%) (Auto) 69.7 % Lymphocytes (%) (Auto) 18.4 % Monocytes (%) (Auto) 8.1 % Eosinophils (%) (Auto) 2.9 % Basophils (%) (Auto) 0.9 % Neutrophils # (Auto) 6.6 TH/MM3 Lymphocytes # (Auto) 1.8 TH/MM3 Monocytes # (Auto) 0.8 TH/MM3 Eosinophils # (Auto) 0.3 TH/MM3 Basophils # (Auto) 0.1 TH/MM3 CBC Comment DIFF FINAL Differential Comment Activated Partial Thromboplast Time 25.2 SEC Blood Urea Nitrogen 15 MG/DL Creatinine 0.85 MG/DL Random Glucose 84 MG/DL Calcium Level 8.9 MG/DL Sodium Level 138 MEQ/L Potassium Level 3.8 MEQ/L Chloride Level 103 MEQ/L Carbon Dioxide Level 27.0 MEQ/L Anion Gap 8 MEQ/L Estimat Glomerular Filtration Rate 91 ML/MIN Imaging Last Impressions Chest X-Ray 12/15/17 1338 Signed Impressions: Service Date/Time: Friday, December 15, 2017 13:57 - CONCLUSION: No acute cardiopulmonary abnormality is identified. Mark Cash MD Objective Remarks GENERAL: SKIN: Warm and dry. HEAD: Atraumatic. Normocephalic. EYES: Pupils equal and round. No scleral icterus. No injection or drainage. ENT: No nasal bleeding or discharge. Mucous membranes pink and moist. NECK: Trachea midline. No JVD. CARDIOVASCULAR: Regular rate and rhythm. RESPIRATORY: No accessory muscle use. Clear to auscultation. Breath sounds equal bilaterally. GASTROINTESTINAL: Abdomen soft, non-tender, nondistended. Hepatic and splenic margins not palpable. MUSCULOSKELETAL: Extremities without clubbing, cyanosis, or edema. No obvious deformities. NEUROLOGICAL: Awake and alert. No obvious cranial nerve deficits. Motor grossly within normal limits. Five out of 5 muscle strength in the arms and legs. Normal speech. PSYCHIATRIC: Appropriate mood and affect; insight and judgment normal. Procedures 12/16/2017 PROCEDURE: Left heart catheterization, coronary angiogram, bypass angiogram, moderate sedation 75 minutes, filter wire for distal protection, balloon angioplasty in-stent restenosis of saphenous vein graft to right coronary artery, Angio-Seal femoral closure. PREPROCEDURE DIAGNOSES: Unstable angina, chest pain, coronary artery disease, history of coronary artery bypass graft. POSTPROCEDURE DIAGNOSES: History of coronary artery bypass graft x 3 (2/3 grafts patent), balloon angioplasty of in-stent restenosis of saphenous vein graft to right coronary artery. MEDICATIONS: Versed 0.5 mg, fentanyl 25 mcg, heparin 6600 units, nitroglycerin 200 mcg, Brilinta 180 mg. CONTRAST USED: 170 mL FLUOROSCOPY: 20.1 minutes. MODERATE SEDATION: 75 minutes. FRAILTY SCORE: 3. ESTIMATED BLOOD LOSS: 10 mL PROCEDURAL SUMMARY: Bassam Stack is a pleasant 62-year-old male who sees my partner, Dr. Nunez in the office and presented to [place] due to chest pain. Because of the significance of his chest pain and known coronary artery disease with previous residual left main/obtuse marginal disease he was recommended cardiac catheterization. Risks, benefits and alternatives were explained to him and he consented to such. He was brought to the lab and prepped in the usual sterile fashion. The right femoral artery was accessed using a modified Seldinger technique and placement of a 6-Turkmen sheath. This was easily aspirated and flushed. A JR4 was advanced over a J-wire to the ascending aorta and across the aortic valve for measurement of left ventricular pressure. This was pulled back across the aortic valve showing no significant gradient of aortic stenosis. JR4 was then used to perform selective angiography of the RCA, and saphenous vein graft to the RCA. This is exchanged out for an SANDEEP catheter which was used for selective angiography of the CHIN to LAD and this was exchanged out for an MP2 which was used to perform selective angiography of the saphenous vein graft to the RCA. JR4 was used for selective angiography of the right coronary artery system. This was exchanged out for an IM catheter which was used for selective angiography of the CHIN to LAD. This was then exchanged out for a multipurpose which was used for selective angiography of the saphenous vein graft to the RCA. This was then exchanged out for a JL4 which was used for selective angiography of the left coronary artery system. Please see notes below for intervention. FINDINGS: LEFT MAIN: Ostial 70% disease. It bifurcates into an LAD and circumflex. LEFT ANTERIOR DESCENDIN% disease throughout the proximal portion. Mid portion has a 95% lesion and distal to this competitive flow is noted. LEFT CIRCUMFLEX: Normal size vessel with mild luminal irregularities. It gives off 1 major obtuse marginal with a 70% to 80% lesion. RIGHT CORONARY ARTERY: Diffuse 50% to 60% disease. Distally, there is an 80% lesion in the PDA. LEFT INTERNAL MAMMARY ARTERY TO LEFT ANTERIOR DESCENDING: Patent. It fills the LAD both antegrade and retrograde and there is diffuse disease of the LAD with a 95% lesion in the apical portion of the LAD which is overall a small vessel. SAPHENOUS VEIN GRAFT TO OBTUSE MARGINAL: Known to be occluded. SAPHENOUS VEIN GRAFT TO RIGHT CORONARY ARTERY: With stent patent with 90% in-stent restenosis. LEFT VENTRICULAR END DIASTOLIC PRESSURE: 15. INTERVENTION: Because of the significance of disease in the saphenous vein graft to PDA I felt that this was the culprit lesion. The patient does have known left main and obtuse marginal disease, but this looks no different than previous, and the patient has had extensive pain over the past 2-3 weeks, most likely due to the saphenous vein graft to RCA. A multipurpose guide was engaged into the saphenous vein graft to RCA. The patient was given heparin as an anticoagulant. A BMW wire was used to cross into the distal portion of the saphenous vein graft. This was exchanged out for a wire a Spider filter (3 mm). A 2.2 x 12 balloon was used. A BMW wire was advanced into the distal portion of the saphenous vein graft. I attempted to take across a Spider filter, but was unable to and so a compliant balloon (2 x 12) was used to dilate the lesion. The Spider filter was then placed into the mid portion of the saphenous vein graft and the BMW wire was removed. A noncompliant balloon (2.75 x 15) was then inflated over the lesion multiple times. This was exchanged out for a noncompliant balloon (3 x 12), which was used to further dilate the proximal portion of the stent. Spider filter was removed. Final angiogram shows a well opposed stent with no perforations or dissections. Guide was removed. Angio-Seal was used for closure of the arteriotomy site. The patient was not given his Brilinta this morning, so he was given 180 mg reload of Brilinta tonight. 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 INTERVENTIONAL DATA: Vessel: Saphenous vein graft to RCA, lesion length 15, pre-SHERRI 2, post-SHERRI 3, plus stenosis 10%. IMPRESSIONS: 1. Unstable angina, status post balloon angioplasty of in-stent restenosis of saphenous vein graft to right coronary artery. 2. Residual moderate to severe coronary artery disease of left main and obtuse marginal not supplied by a vein graft. 3. Coronary artery bypass graft x 3 (2/3 grafts patent). RECOMMENDATIONS: 1. Mr. Stack underwent PCI as above and will be recommended continuation of his aspirin, Brilinta, statin, beta fabricio and CIERRA inhibitor therapy. 2. He will be watched overnight and if stable in the morning discharged home. 3. We will continue to follow him and if further pain, consideration will be made for PCI of his left main and obtuse marginal. Thank you for allowing me to see Bassam Stack. If there are any questions, please do not hesitate to call. Rosales Gallardo, DO Medications and IVs Current Medications Aspirin (Aspirin Chew) 162 mg ONCE ONCE PO Last administered on 12/15/17at 14: 31; Start 12/15/17 at 13:45; Stop 12/15/17 at 13:46; Status DC Morphine Sulfate (Morphine Inj) 2 mg ONCE ONCE IV PUSH Last administered on 06/24at 14:30; Start 12/15/17 at 14:15; Stop 12/15/17 at 14:25; Status DC Nitroglycerin (Nitroglycerin 2% Oint) 1 inch ONCE ONCE TOP Last administered on 12/15/17at 14:31; Start 12/15/17 at 14:15; Stop 12/15/17 at 14:25; Status DC Sodium Chloride (NS Flush) 2 ml UNSCH PRN IV FLUSH FLUSH AFTER USING IV ACCESS ; Start 12/15/17 at 16:45 Sodium Chloride (NS Flush) 2 ml BID IV FLUSH Last administered on 12/17/17at 08: 50; Start 12/15/17 at 21:00 Naloxone HCl (Narcan Inj) 0.4 mg UNSCH PRN IV PUSH SEE LABEL COMMENTS; Start at 16:45 Heparin Sodium (Porcine) (Heparin Inj) 4,000 units ONCE ONCE IV PUSH Last administered on 12/15/17at 18:45; Start 12/15/17 at 17:15; Stop 12/15/17 at 17:16 ; Status DC Heparin Sodium/ Dextrose 250 ml @ 0 mls/hr TITRATE PRN IV Coagulation Management; Start 12/15/17 at 17:15; Stop 12/15/17 at 18:34; Status DC Heparin Sodium/ Dextrose 250 ml @ 10 mls/hr TITRATE PRN IV Coagulation Management Last administered on 12/15/17at 19:05; Start 12/15/17 at 18:45; Stop 12/16/17 at 18:13; Status DC Dextrose (D50w (Vial) Inj) 50 ml UNSCH PRN IV PUSH HYPOGLYCEMIA-SEE COMMENTS; Start 12/15/17 at 20:45 Glucagon (Glucagon Inj) 1 mg UNSCH PRN OTHER HYPOGLYCEMIA-SEE COMMENTS; Start 12/15/17 at 20:45 Aspirin (Ecotrin Ec) 81 mg DAILY PO Last administered on 12/17/17at 08:50; Start 12/16/17 at 09:00 Nitroglycerin (Nitrostat Sl) 0.4 mg Q5M PRN SL CHEST PAIN; Start 12/15/17 at 20 :45 Acetaminophen (Tylenol) 650 mg Q4H PRN PO fever, GRAHAM Last administered on at 03:41; Start 12/16/17 at 03:30 Heparin Sodium/ Sodium Chloride 2,000 ml @ As Directed STK-MED ONCE IV FLUSH Last administered on 12/16/17 15:59; Start 12/16/17 at 15:59; Stop 12/16/17 at 16:00; Status DC Midazolam HCl (Versed Inj) 2 mg STK-MED ONCE .ROUTE Last administered on at 16:27; Start 12/16/17 at 15:59; Stop 12/16/17 at 16:00; Status DC Fentanyl Citrate (fentaNYL INJ) 100 mcg STK-MED ONCE .ROUTE Last administered on 12/16/17 16:28; Start 12/16/17 at 15:59; Stop 12/16/17 at 16:00; Status DC Heparin Sodium (Porcine) (Heparin Inj) 10,000 units STK-MED ONCE .ROUTE Last administered on 12/16/17 17:04; Start 12/16/17 at 16:00; Stop 12/16/17 at 16:01 ; Status DC Nitroglycerin 5 ml @ As Directed STK-MED ONCE .ROUTE Last administered on 17:35; Start 12/16/17 at 16:00; Stop 12/16/17 at 16:01; Status DC Ticagrelor (Brilinta) 180 mg STK-MED ONCE PO Last administered on 12/16/17 17: 48; Start 12/16/17 at 17:43; Stop 12/16/17 at 17:44; Status DC Iohexol (OMNIPAQUE 350 INJ (Professional Nursing Assistant)) 100 ml STK-MED ONCE OTHER Last administered on 12/16/17 18:02; Start 12/16/17 at 18:02; Stop 12/16/17 at 18:03 ; Status DC Acetaminophen (Tylenol) 325 mg Q4H PRN PO PAIN SCALE 1 TO 2; Start 12/16/17 at 18:15 Oxycodone/ Acetaminophen (Percocet 5-325 Mg) 1 tab Q4H PRN PO PAIN SCALE 3 TO 5; Start 12/16/17 at 18:15 Oxycodone/ Acetaminophen (Percocet 10-325 Mg) 1 tab Q4H PRN PO PAIN SCALE 6 TO 10; Start 12/16/17 at 18:15 Morphine Sulfate (Morphine Inj) 2 mg Q30M PRN IV PUSH BREAKTHROUGH PAIN; Start 12/16/17 at 18:15 Miscellaneous Information 1 ONCE ONCE XX ; Start 12/16/17 at 18:15; Stop at 18:16; Status DC Atorvastatin Calcium (Lipitor) 80 mg HS PO Last administered on 12/16/17at 20:59 ; Start 12/16/17 at 21:00 Isosorbide Mononitrate (Imdur) 30 mg DAILY PO Last administered on 12/17/17at 08 :50; Start 12/17/17 at 09:00 Metoprolol Tartrate (Lopressor) 25 mg BID PO Last administered on 12/17/17at 08: 50; Start 12/16/17 at 21:00 Ticagrelor (Brilinta) 90 mg BID PO Last administered on 12/17/17at 08:50; Start 12/16/17 at 21:00 A/P Assessment and Plan Unstable angina Hypertension Diabetes Coronary artery disease status post CABG 3 years ago. Status post stents- pt thinks 3 total, one stent here was in 07/2017-- SP ANGIOPLASTY NO INTERVENTION Hypothyroidism BPH Plan: Serial cardiac enzymes and EKGs. First set of cardiac enzymes negative. EKG personally reviewed. Sinus rhythm. No acute ST-T changes. Patient was given aspirin and nitroglycerin in ER. Start nitroglycerin as needed sublingual. Start patient on heparin drip. Aspirin daily in a.m. Resume rest of his home medications. Hold oral hypoglycemics and long-acting insulin. Med reconciliation by nursing. 12/16 appreciate cardiology consultation, plan for heart cath today HAD CARDIAC CATH ON 12-16 WITH ANGIOPLASTY ONLY WILL DC LATER TODAY IF OK WITH CARDIOLOGY DVT prophylaxis on heparin drip. Discharge Planning HOME TODAY AFTER CLEARED BY CARDIOLOGY Spenser Scherer DO Dec 17, 2017 12:47
[2017-12-17] MEDS ORDERED: MONT10TA4 PO (12:51)
[2017-12-17] MEDS ORDERED: METO25TA3 PO (12:51)
[2017-12-17] MEDS ORDERED: CANA300T PO (12:51)
[2017-12-17] MEDS ORDERED: ATOR80TA45 PO (12:51)
[2017-12-17] MEDS ORDERED: ASPI81TA23 PO (12:51)
[2017-12-17] MEDS ORDERED: BRIL90TA PO (12:51)
[2017-12-17] MEDS ORDERED: SITA50TA4 PO (12:51)
[2017-12-17] MEDS ORDERED: EMPA1TAB3 PO (12:51)
[2017-12-17] MEDS ORDERED: DULA0.5I SQ (12:51)
[2017-12-17] MEDS ORDERED: NITR0.4S SL (12:51)
[2017-12-17] MEDS ORDERED: ISOS30TA3 PO (12:51)
--- NOTE | 2017-12-17 12:54 | HHI.DS ---
Discharge Summary Admission Date Dec 15, 2017 at 20:24 Discharge Date: Dec 17, 2017 Admitting Diagnosis ACS (1) Stented coronary artery ICD Code: Z95.5 - Presence of coronary angioplasty implant and graft Diagnosis: Secondary (2) Hypertension ICD Code: I10 - Hypertension Diagnosis: Secondary Status: Chronic (3) CAD (coronary artery disease) ICD Code: I25.10 - CAD (coronary artery disease) Diagnosis: Principal Status: Acute (4) Diabetes mellitus ICD Code: E11.9 - Diabetes mellitus Diagnosis: Principal Status: Chronic (5) Unstable angina ICD Code: I20.0 - Unstable angina Status: Acute (6) Atypical chest pain ICD Code: R07.89 - Other chest pain Diagnosis: Secondary Status: Acute Procedures 12/16/2017 PROCEDURE: Left heart catheterization, coronary angiogram, bypass angiogram, moderate sedation 75 minutes, filter wire for distal protection, balloon angioplasty in-stent restenosis of saphenous vein graft to right coronary artery, Angio-Seal femoral closure. PREPROCEDURE DIAGNOSES: Unstable angina, chest pain, coronary artery disease, history of coronary artery bypass graft. POSTPROCEDURE DIAGNOSES: History of coronary artery bypass graft x 3 (2/3 grafts patent), balloon angioplasty of in-stent restenosis of saphenous vein graft to right coronary artery. MEDICATIONS: Versed 0.5 mg, fentanyl 25 mcg, heparin 6600 units, nitroglycerin 200 mcg, Brilinta 180 mg. CONTRAST USED: 170 mL FLUOROSCOPY: 20.1 minutes. MODERATE SEDATION: 75 minutes. FRAILTY SCORE: 3. ESTIMATED BLOOD LOSS: 10 mL PROCEDURAL SUMMARY: Bassam Stack is a pleasant 62-year-old male who sees my partner, Dr. Nunez in the office and presented to [place] due to chest pain. Because of the significance of his chest pain and known coronary artery disease with previous residual left main/obtuse marginal disease he was recommended cardiac catheterization. Risks, benefits and alternatives were explained to him and he consented to such. He was brought to the lab and prepped in the usual sterile fashion. The right femoral artery was accessed using a modified Seldinger technique and placement of a 6-Chadian sheath. This was easily aspirated and flushed. A JR4 was advanced over a J-wire to the ascending aorta and across the aortic valve for measurement of left ventricular pressure. This was pulled back across the aortic valve showing no significant gradient of aortic stenosis. JR4 was then used to perform selective angiography of the RCA, and saphenous vein graft to the RCA. This is exchanged out for an SANDEEP catheter which was used for selective angiography of the CHIN to LAD and this was exchanged out for an MP2 which was used to perform selective angiography of the saphenous vein graft to the RCA. JR4 was used for selective angiography of the right coronary artery system. This was exchanged out for an IM catheter which was used for selective angiography of the CHIN to LAD. This was then exchanged out for a multipurpose which was used for selective angiography of the saphenous vein graft to the RCA. This was then exchanged out for a JL4 which was used for selective angiography of the left coronary artery system. Please see notes below for intervention. FINDINGS: LEFT MAIN: Ostial 70% disease. It bifurcates into an LAD and circumflex. LEFT ANTERIOR DESCENDIN% disease throughout the proximal portion. Mid portion has a 95% lesion and distal to this competitive flow is noted. LEFT CIRCUMFLEX: Normal size vessel with mild luminal irregularities. It gives off 1 major obtuse marginal with a 70% to 80% lesion. RIGHT CORONARY ARTERY: Diffuse 50% to 60% disease. Distally, there is an 80% lesion in the PDA. LEFT INTERNAL MAMMARY ARTERY TO LEFT ANTERIOR DESCENDING: Patent. It fills the LAD both antegrade and retrograde and there is diffuse disease of the LAD with a 95% lesion in the apical portion of the LAD which is overall a small vessel. SAPHENOUS VEIN GRAFT TO OBTUSE MARGINAL: Known to be occluded. SAPHENOUS VEIN GRAFT TO RIGHT CORONARY ARTERY: With stent patent with 90% in-stent restenosis. LEFT VENTRICULAR END DIASTOLIC PRESSURE: 15. INTERVENTION: Because of the significance of disease in the saphenous vein graft to PDA I felt that this was the culprit lesion. The patient does have known left main and obtuse marginal disease, but this looks no different than previous, and the patient has had extensive pain over the past 2-3 weeks, most likely due to the saphenous vein graft to RCA. A multipurpose guide was engaged into the saphenous vein graft to RCA. The patient was given heparin as an anticoagulant. A BMW wire was used to cross into the distal portion of the saphenous vein graft. This was exchanged out for a wire a Spider filter (3 mm). A 2.2 x 12 balloon was used. A BMW wire was advanced into the distal portion of the saphenous vein graft. I attempted to take across a Spider filter, but was unable to and so a compliant balloon (2 x 12) was used to dilate the lesion. The Spider filter was then placed into the mid portion of the saphenous vein graft and the BMW wire was removed. A noncompliant balloon (2.75 x 15) was then inflated over the lesion multiple times. This was exchanged out for a noncompliant balloon (3 x 12), which was used to further dilate the proximal portion of the stent. Spider filter was removed. Final angiogram shows a well opposed stent with no perforations or dissections. Guide was removed. Angio-Seal was used for closure of the arteriotomy site. The patient was not given his Brilinta this morning, so he was given 180 mg reload of Brilinta tonight. 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 INTERVENTIONAL DATA: Vessel: Saphenous vein graft to RCA, lesion length 15, pre-SHERRI 2, post-SHERRI 3, plus stenosis 10%. IMPRESSIONS: 1. Unstable angina, status post balloon angioplasty of in-stent restenosis of saphenous vein graft to right coronary artery. 2. Residual moderate to severe coronary artery disease of left main and obtuse marginal not supplied by a vein graft. 3. Coronary artery bypass graft x 3 (2/3 grafts patent). RECOMMENDATIONS: 1. Mr. Stack underwent PCI as above and will be recommended continuation of his aspirin, Brilinta, statin, beta fabricio and CIERRA inhibitor therapy. 2. He will be watched overnight and if stable in the morning discharged home. 3. We will continue to follow him and if further pain, consideration will be made for PCI of his left main and obtuse marginal. Thank you for allowing me to see Bassam Stack. If there are any questions, please do not hesitate to call. Rosales Gallardo, DO Brief History - From Admission History from patient, ER physician communication, and review of medical records. 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 Patient also reported that he was having chest pains even after this stent placement but Jarrell was doing its job at controlling it for most part. However he noted that the frequencies of attacks and pains have been coming more often and particularly when he exerts and walks around. CBC/BMP: 12/17/17 0655 12/17/17 0655 Significant Findings Laboratory Tests Test 12/15/17 14:30 12/15/17 19:21 12/16/17 00:40 12/16/17 04:26 Estimat Glomerular Filtration Rate 61 ML/MIN (>89) Creatine Kinase MB 4.5 NG/ML (0.5-3.6) Troponin I LESS THAN 0.02 NG/ML LESS THAN 0.02 NG/ML LESS THAN 0.02 NG/ML Activated Partial Thromboplast Time 63.2 SEC (24.3-30.1) 64.6 SEC (24.3-30.1) Blood Urea Nitrogen 19 MG/DL (7-18) Test 12/17/17 06:55 Monocytes (%) (Auto) 8.1 % (0.0-8.0) Imaging Last Impressions Chest X-Ray 12/15/17 1338 Signed Impressions: Service Date/Time: Friday, December 15, 2017 13:57 - CONCLUSION: No acute cardiopulmonary abnormality is identified. Mark Cash MD PE at Discharge GENERAL: SKIN: Warm and dry. HEAD: Atraumatic. Normocephalic. EYES: Pupils equal and round. No scleral icterus. No injection or drainage. ENT: No nasal bleeding or discharge. Mucous membranes pink and moist. NECK: Trachea midline. No JVD. CARDIOVASCULAR: Regular rate and rhythm. RESPIRATORY: No accessory muscle use. Clear to auscultation. Breath sounds equal bilaterally. GASTROINTESTINAL: Abdomen soft, non-tender, nondistended. Hepatic and splenic margins not palpable. MUSCULOSKELETAL: Extremities without clubbing, cyanosis, or edema. No obvious deformities. NEUROLOGICAL: Awake and alert. No obvious cranial nerve deficits. Motor grossly within normal limits. Five out of 5 muscle strength in the arms and legs. Normal speech. PSYCHIATRIC: Appropriate mood and affect; insight and judgment normal. Hospital Course History from patient, ER physician communication, and review of medical records. 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 Patient also reported that he was having chest pains even after this stent placement but Jarrell was doing its job at controlling it for most part. However he noted that the frequencies of attacks and pains have been coming more often and particularly when he exerts and walks around. 4-11 Patient denies chest pain short of breath no fever or chills now Initially he came with feeling of left chest heaviness without transfer, patient has a history of CABG plan for heart cath today 4-12 WILL DC TO HOME AFTER CLEARED BY CARDIOLOGY SP ANGIOPLASTY- NO STENTS PLACED DC TO HOME TODAY [facility] AND RN AND PT Pt Condition on Discharge: Good Discharge Disposition: Discharge Home Discharge Time: > 30 minutes Discharge Instructions DIET: Follow Instructions for: Heart Healthy Diet, Diabetic Diet Activities you can perform: Regular-No Restrictions, Shower Only-No Bath Follow up Referrals: Cardiology, Interventional - 2 Weeks with Rosales Gallarod DO PCP Follow-up - 3-5 Days with Flower Griffiths D.o. Continued Medications: Aspirin DR (Aspirin EC) 81 Mg Tabdr 81 MG PO DAILY for Blood Clot Prevention, #90 TAB 0 Refills (This prescription has been renewed) Atorvastatin (Atorvastatin) 80 Mg Tab 80 MG PO HS for Cholesterol Management, #30 TAB 3 Refills (This prescription has been renewed) Dulaglutide Inj (Trulicity Inj) 1.5 Mg/0.5 Ml Pen 1.5 MG SQ Q7D for Blood Sugar Management, #4 PEN 0 Refills (This prescription has been renewed) Empagliflozin (Jardiance) 25 Mg Tab 25 MG PO DAILY for Blood Sugar Management, #30 TAB 0 Refills (This prescription has been renewed) Isosorbide Mononitrate ER (Isosorbide Mononitrate ER) 30 Mg Carline 30 MG PO DAILY for Prevent Chest Pain, #30 TAB 0 Refills (This prescription has been renewed) Lisinopril (Lisinopril) 20 Mg Tab 20 MG PO DAILY, #30 TAB 0 Refills Losartan (Losartan) 25 Mg Tab 25 MG PO DAILY for Blood Pressure Management, #30 TAB 0 Refills Metoprolol Tartrate (Metoprolol Tartrate) 25 Mg Tab 25 MG PO BID for Blood Pressure Management, #60 TAB 0 Refills (This prescription has been renewed) Montelukast (Montelukast) 10 Mg Tab 10 MG PO HS for Allergies, #30 TAB 0 Refills (This prescription has been renewed ) Nitroglycerin SL (Nitrostat SL) 0.4 Mg Subl 0.4 MG SL ONCE for Chest Pain, #100 TAB.SL 0 Refills (This prescription has been renewed) Sitagliptin-Metformin ER (Janumet Xr) 50-1,000 Mg Tab 1 TAB PO DAILY for Blood Sugar Management, #30 TAB 0 Refills (This prescription has been renewed) Ticagrelor (Brilinta) 90 Mg Tab 90 MG PO BID for CAD for 90 Days, #180 TAB 3 Refills (This prescription has been renewed) Discontinued Medications: Canagliflozin (Invokana) 300 Mg Tab 300 MG PO DAILY for Blood Sugar Management, #30 TAB 0 Refills Take before 1st meal of day. Spenser Scherer DO Dec 17, 2017 12:54
--- NOTE | 2017-12-17 18:54 | EKG ---
Date Performed: 12/17/2017 Time Performed: 05:39:46 PTAGE: 62 years EKG: Sinus rhythm . Right axis deviation Possible anteroseptal infarct - age undetermined Low QRS voltages in precordia l leads Since the previous tracing, no significant change noted Abnormal ECG PREVIOUS TRACING : 12/15/17 @2131 DOCTOR: Scooby Nunez Interpretating Date/Time 12/17/2017 18:51:23
--- NOTE | 2017-12-17 22:11 | PD.CARD.PN ---
Subjective Subjective Remarks Patient was seen earlier today, late entry note Doing well, no complaints, no chest pain Objective Vital Signs / I&O Vital Signs Date Time Temp Pulse Resp B/P (MAP) Pulse Ox O2 Delivery O2 Flow Rate FiO2 12/17/17 15:00 98.6 72 20 108/63 (78) 96 12/17/17 15:00 96 Room Air 12/17/17 15:00 73 12/17/17 14:00 78 12/17/17 13:00 79 12/17/17 12:00 74 12/17/17 11:00 82 12/17/17 11:00 98.1 79 20 114/56 (75) 98 12/17/17 11:00 98 Room Air 12/17/17 10:00 81 12/17/17 09:00 74 12/17/17 08:00 78 12/17/17 07:45 80 12/17/17 07:45 95 Room Air 12/17/17 07:45 98.8 70 20 144/85 (104) 95 12/17/17 06:17 72 12/17/17 05:14 73 12/17/17 04:17 77 12/17/17 03:25 66 12/17/17 03:08 94 Room Air 12/17/17 03:08 98.2 67 16 156/87 (110) 94 12/17/17 02:04 70 12/17/17 01:40 69 12/17/17 00:00 67 12/16/17 23:10 95 Room Air 12/16/17 23:10 74 12/16/17 23:10 97.9 73 17 122/73 (89) 95 12/16/17 22:32 76 I/O 12/16/17 12/16/17 12/16/17 12/17/17 12/17/17 12/17/17 07:00 15:00 23:00 07:00 15:00 23:00 Intake Total 480 ml 480 ml Output Total 1575 ml Balance 480 ml -1095 ml Intake Oral 480 ml 480 ml Output Urine Total 1575 ml # Voids 3 # Bowel Movements 0 Physical Exam GENERAL: NAD, AAOx3 SKIN: Warm and dry. HEAD: Atraumatic. Normocephalic. EYES: Pupils equal and round. No scleral icterus. No injection or drainage. ENT: No nasal bleeding or discharge. Mucous membranes pink and moist. NECK: Trachea midline. No JVD. CARDIOVASCULAR: Regular rate and rhythm. RESPIRATORY: No accessory muscle use. Clear to auscultation. Breath sounds equal bilaterally. GASTROINTESTINAL: Abdomen soft, non-tender, nondistended. Hepatic and splenic margins not palpable. MUSCULOSKELETAL: Extremities without clubbing, cyanosis, or edema. No obvious deformities. Right femoral no hematoma, distal pulses intact NEUROLOGICAL: Awake and alert. No obvious cranial nerve deficits. Motor grossly within normal limits. Five out of 5 muscle strength in the arms and legs. Normal speech. PSYCHIATRIC: Appropriate mood and affect; insight and judgment normal. Laboratory Laboratory Tests Test 12/17/17 06:55 White Blood Count 9.5 TH/MM3 Red Blood Count 5.15 MIL/MM3 Hemoglobin 14.6 GM/DL Hematocrit 43.6 % Mean Corpuscular Volume 84.8 FL Mean Corpuscular Hemoglobin 28.4 PG Mean Corpuscular Hemoglobin Concent 33.5 % Red Cell Distribution Width 14.0 % Platelet Count 202 TH/MM3 Mean Platelet Volume 8.8 FL Neutrophils (%) (Auto) 69.7 % Lymphocytes (%) (Auto) 18.4 % Monocytes (%) (Auto) 8.1 % Eosinophils (%) (Auto) 2.9 % Basophils (%) (Auto) 0.9 % Neutrophils # (Auto) 6.6 TH/MM3 Lymphocytes # (Auto) 1.8 TH/MM3 Monocytes # (Auto) 0.8 TH/MM3 Eosinophils # (Auto) 0.3 TH/MM3 Basophils # (Auto) 0.1 TH/MM3 CBC Comment DIFF FINAL Differential Comment Activated Partial Thromboplast Time 25.2 SEC Blood Urea Nitrogen 15 MG/DL Creatinine 0.85 MG/DL Random Glucose 84 MG/DL Calcium Level 8.9 MG/DL Sodium Level 138 MEQ/L Potassium Level 3.8 MEQ/L Chloride Level 103 MEQ/L Carbon Dioxide Level 27.0 MEQ/L Anion Gap 8 MEQ/L Estimat Glomerular Filtration Rate 91 ML/MIN Assessment and Plan Problem List: (1) CAD (coronary artery disease) ICD Codes: I25.10 - CAD (coronary artery disease) Status: Acute (2) Unstable angina ICD Codes: I20.0 - Unstable angina Status: Acute (3) Stented coronary artery ICD Codes: Z95.5 - Presence of coronary angioplasty implant and graft Assessment and Plan 1) CAD/USA s/p POBA ISR of SVG to RCA 2) Residual LM/OM disease Same as before Con't with medical management 3) ASA/Brilinta/BB/CIERRA/Statin 4) Cardiovascularly stable for discharge Follow up with Dr. Nunez Discussed with primary team Rosales Gallardo DO Dec 17, 2017 22:11
== END 2017-12-17 16:10 | disposition home or self-care (01) | DRG 251 ==
LOC: NEPE 13:12 → NEDA 16:41 → N04B 18:12 → OBSVTOIN 20:24 → HCIS 12-16 17:07 → HCPC 12-16 19:10
PROVIDERS: ADMIT Hospitalist; ATTEND Hospitalist
PROC: 4A023N7 Measurement of Cardiac Sampling and Pressure, Left Heart, Percutaneous Approach (ICD-10-PCS; 2017-12-16)
PROC: B2111ZZ Fluoroscopy of Multiple Coronary Arteries using Low Osmolar Contrast (ICD-10-PCS; 2017-12-16)
PROC: B2131ZZ Fluoroscopy of Multiple Coronary Artery Bypass Grafts using Low Osmolar Contrast (ICD-10-PCS; 2017-12-16)
PROC: 02703ZZ Dilation of Coronary Artery, One Artery, Percutaneous Approach (ICD-10-PCS; principal; 2017-12-16 14:45)
DX: I25.110 Atherosclerotic heart disease of native coronary artery with unstable angina pectoris (principal); T82.855A Stenosis of coronary artery stent, initial encounter; I24.9 Acute ischemic heart disease, unspecified; I10 Essential (primary) hypertension; E78.00 Pure hypercholesterolemia, unspecified; E11.9 Type 2 diabetes mellitus without complications; E03.9 Hypothyroidism, unspecified; N40.0 Benign prostatic hyperplasia without lower urinary tract symptoms; Y83.1 Surgical operation with implant of artificial internal device as the cause of abnormal reaction of the patient, or of later complication, without mention of misadventure at the time of the procedure; Z87.891 Personal history of nicotine dependence; Z95.5 Presence of coronary angioplasty implant and graft
CPT/HCPCS: 71046; 80048; 82550; 82552; 82948; 83735; 84484; 85002; 85025; 85610; 85730; 92920; 93005; 93459; 96374; 99152; 99153; C1725; C1760; C1769; C1884; C1887; C1893; G0269; J1644; J2250; J2270; J3010; Q9967

== ENCOUNTER 2018-06-08 10:58 | Observation (INO) ==
[2018-06-08 11:23] LABS: Baso # (Auto) 0.1 th/mm3 (0.0-0.2); Baso % (Auto) 1.3 % (0.0-2.0); Eos # (Auto) 0.3 th/mm3 (0.0-0.4); Eos % (Auto) 3.3 % (0.0-4.0); Hemoglobin 14.6 gm/dL (13.0-17.0); Lymph # (Auto) 1.6 th/mm3 (1.0-4.8); Lymph % (Auto) 18.3 % (9.0-44.0); Mean Corpuscular HGB Conc 33.2 % (32.0-36.0); Mean Corpuscular Hemoglobin 28.8 pg (27.0-34.0); Mean Corpuscular Volume 86.6 fL (80.0-100.0); Mean Platelet Volume 8.8 fL (7.0-11.0); Mono # (Auto) 0.6 th/mm3 (0.0-0.9); Mono % (Auto) 7.1 % (0.0-8.0); Neut # (Auto) 5.9 th/mm3 (1.8-7.7); Platelet Count 253 th/mm3 (150-450); Red Blood Count 5.08 mil/mm3 (4.50-5.90); Red Cell Distribution Width 14.9 % (11.6-17.2); White Blood Count 8.5 th/mm3 (4.0-11.0)
[2018-06-08 11:33] LABS: Chloride 107 meq/L (98-107); Potassium 4.1 meq/L (3.5-5.1); Sodium 144 meq/L (136-145)
[2018-06-08 11:37] LABS: Calcium 8.5 mg/dL (8.5-10.1)
[2018-06-08 11:38] LABS: Albumin 3.9 g/dL (3.4-5.0); Anion Gap 10 meq/L (5-15); Blood Urea Nitrogen 15 mg/dL (7-18); Carbon Dioxide 26.7 meq/L (21.0-32.0); Glucose,Random 113 mg/dL (74-106)
[2018-06-08 11:41] LABS: Alanine Aminotransferase 38 U/L (12-78); Aspartate Aminotransferase 35 U/L (15-37); Glomerular Filtration Rate 68 mL/min (>89)
[2018-06-08 11:42] LABS: Total Protein 7.4 g/dL (6.4-8.2)
[2018-06-08 11:43] LABS: Alkaline Phosphatase 77 U/L (45-117)
--- NOTE | 2018-06-08 11:44 | XR ---
EXAM DATE: 06/08/2018 11:10 AM EDT AGE/SEX: 62 years / Male INDICATIONS: Left side chest pressure/pain since this morning. CLINICAL DATA: This is the patient's initial encounter. Patient reports that signs and symptoms have been present for 1 day and indicates a pain score of 5/10. MEDICAL/SURGICAL HISTORY: Hypercholesterolemia. Hypertension. Aortic valve replacement. Becerril ry artery stent. . COMPARISON: [facility] [place] & [place], 12/15/2017. . FINDINGS: Median sternotomy wires are noted status post cardiac surgery. The heart is stable. The pulmonary vas cular pattern is normal. The lungs are clear. CONCLUSION: No acute cardiopulmonary disease. Electronically signed by: Javier Wright MD 06/08/2018 11:43 AM EDT
--- NOTE | 2018-06-08 12:20 | ED ---
HPI General Chief Complaint: Chest Pain Stated Complaint: cp/heaviness this am Source: patient History of Present Illness HPI narrative: 63-year-old male with a past medical history of coronary disease , hypertension, smoking history presents to the emergency room complaining of acute chest pain that happened prior to arrival. Chest pain was worse with activity and improved with rest. Pain was moderate to severe midsternal radiating to the left arm with associated nausea, shortness of breath and diaphoresis. Patient has an extensive coronary disease history. Upon arrival to the ER patient's pain is 3 out of 10 and heaviness in nature. Patient denies any fever, cough, abdominal pain, back pain or focal neurologic deficits. Related Data Home Medications Medication Instructions Recorded Confirmed aspirin 81 mg PO DAILY 06/08/18 06/08/18 atorvastatin 80 mg PO HS 06/08/18 06/08/18 dulaglutide [Trulicity] 1.5 mg SUBCUT QWEEK 06/08/18 06/08/18 empagliflozin [Jardiance] 25 mg PO DAILY 06/08/18 06/08/18 isosorbide mononitrate 30 mg PO DAILY 06/08/18 06/08/18 levothyroxine See Label Instructions .ROUTE 06/08/18 06/08/18 .COMPLEX losartan 25 mg PO DAILY 06/08/18 06/08/18 metoprolol tartrate 25 mg PO BID 06/08/18 06/08/18 montelukast 10 mg PO DAILY 06/08/18 06/08/18 sitagliptin-metformin [Janumet] 2 tab PO DAILY 06/08/18 06/08/18 ticagrelor [Brilinta] 2 tab PO DAILY 06/08/18 06/08/18 Allergies Allergy/AdvReac Type Severity Reaction Status Date / Time pollen extracts Allergy Intermediate Sneezing Verified 06/08/18 11:09 Review of Systems Constitutional Denies fever(s) Eyes Denies change in vision ENT Denies headache(s) and Denies nasal congestion Cardiovascular Reports chest pain Respiratory Denies dyspnea Gastrointestinal Denies abdominal pain Genitourinary Denies difficulty urinating Musculoskeletal Denies myalgias Integumentary/Breasts Denies rash Neurologic Denies headache(s) Psychiatric Denies depression Endocrine Denies polyuria Hematologic/Lymphatic Denies easy bruising [facility] Medical History Medical History Diabetes (Acute) High cholesterol (Acute) Hypertension (Acute) Surgical History Surgical History H/O aortic valve replacement (Acute) History of coronary artery stent placement (Acute) Family History Family History Other Osteoarthritis Social History Social History Substance History: No History of Abuse Second Hand Smoke Exposure: No Smoking Status: Former smoker Tobacco Type: Cigarettes How Often Do You Have a Drink Containing Alcohol: Never Recent Travel in [facility] within the Last 8 Weeks: No Recent Out of Country Travel within the Last 8 Weeks: No Immunization History Tetanus Immunization: >5 Years Hx Influenza Vaccine This Season: No Exam HENMT Head: normocephalic and atraumatic Nose: no nasal discharge and no epistaxis Mouth: moist mucous membranes Eyes Sclera: normal sclerae Pupils: PERRL Neck Neck: trachea midline and no JVD Resp Effort & Inspection: no use of accessory muscles Auscultation: clear to auscultation bilaterally Cardio Rate: regular rate Rhythm: regular rhythm Heart Sounds: no murmurs GI Inspection: non-distended Palpation: soft, no hepatosplenomegaly and nontender Skin General: dry skin (warm) Neuro General: alert and awake Cranial Nerves: other Speech: speech normal Motor: no movement abnormalities noted Extrem General: normal to inspection, no clubbing, no cyanosis and no edema Psych Mood: congruent mood Affect: normal affect Judgment: judgment good Course Reevaluation(s) Reevaluation #1: Patient condition improved during the ER course. I personally reexamined and counseled the patient about his diagnosis and results. Time: 14:20 Initial Documented Vital Signs Temperature 98.3 F 06/08/18 11:07 Pulse Rate 68 06/08/18 11:07 Respiratory Rate 18 06/08/18 11:07 Blood Pressure 137/77 06/08/18 11:07 Pulse Oximetry 95 06/08/18 11:07 Last Documented Vital Signs Temperature 98.3 F 06/08/18 11:07 Pulse Rate 78 06/08/18 13:05 Respiratory Rate 18 06/08/18 13:05 Blood Pressure 130/73 06/08/18 13:05 Pulse Oximetry 98 06/08/18 13:05 Medical Decision Making MDM Narrative Medical Screen Exam Complete: Yes Emergency Medical Condition: Yes Lab Data Result diagrams: 06/08/18 11:10 06/08/18 11:10 Lab Results 10/02/18 10/02/18 10/02/18 Range/Units 11:10 11:10 17:05 CBC w Diff Auto diff final WBC 8.5 (4.0-11.0) th/mm3 RBC 5.08 (4.50-5.90) mil/mm3 Hgb 14.6 (13.0-17.0) gm/dL Hct 44.0 (39.0-51.0) % MCV 86.6 (80.0-100.0) fL MCH 28.8 (27.0-34.0) pg MCHC 33.2 (32.0-36.0) % RDW 14.9 (11.6-17.2) % Plt Count 253 (150-450) th/mm3 MPV 8.8 (7.0-11.0) fL Neut % (Auto) 70.0 (16.0-70.0) % Lymph % (Auto) 18.3 (9.0-44.0) % [place] % (Auto) 7.1 (0.0-8.0) % Eos % (Auto) 3.3 (0.0-4.0) % Baso % (Auto) 1.3 (0.0-2.0) % Neut # (Auto) 5.9 (1.8-7.7) th/mm3 Lymph # (Auto) 1.6 (1.0-4.8) th/mm3 [place] # (Auto) 0.6 (0.0-0.9) th/mm3 Eos # (Auto) 0.3 (0.0-0.4) th/mm3 Baso # (Auto) 0.1 (0.0-0.2) th/mm3 WBC Differential . Differential Comment . Sodium 144 (136-145) meq/L Potassium 4.1 (3.5-5.1) meq/L Chloride 107 (98-107) meq/L Carbon Dioxide 26.7 (21.0-32.0) meq/L Anion Gap 10 (5-15) meq/L BUN 15 (7-18) mg/dL Creatinine 1.10 (0.60-1.30) mg/dL Estimated GFR 68 L (>89) mL/min POC Glucose (68-110) mg/dl Random Glucose 113 H (74-106) mg/dL Calcium 8.5 (8.5-10.1) mg/dL Total Bilirubin 1.0 (0.2-1.0) mg/dL AST 35 (15-37) U/L ALT 38 (12-78) U/L Alkaline Phosphatase 77 (45-117) U/L Total Creatine Kinase 197 (39-308) U/L Troponin I Less than 0.02 L Less than 0.02 L (0.02-0.05) ng/mL Total Protein 7.4 (6.4-8.2) g/dL Albumin 3.9 (3.4-5.0) g/dL 06/08/18 Range/Units 17:24 CBC w Diff WBC (4.0-11.0) th/mm3 RBC (4.50-5.90) mil/mm3 Hgb (13.0-17.0) gm/dL Hct (39.0-51.0) % MCV (80.0-100.0) fL MCH (27.0-34.0) pg MCHC (32.0-36.0) % RDW (11.6-17.2) % Plt Count (150-450) th/mm3 MPV (7.0-11.0) fL Neut % (Auto) (16.0-70.0) % Lymph % (Auto) (9.0-44.0) % [place] % (Auto) (0.0-8.0) % Eos % (Auto) (0.0-4.0) % Baso % (Auto) (0.0-2.0) % Neut # (Auto) (1.8-7.7) th/mm3 Lymph # (Auto) (1.0-4.8) th/mm3 [place] # (Auto) (0.0-0.9) th/mm3 Eos # (Auto) (0.0-0.4) th/mm3 Baso # (Auto) (0.0-0.2) th/mm3 WBC Differential Differential Comment Sodium (136-145) meq/L Potassium (3.5-5.1) meq/L Chloride (98-107) meq/L Carbon Dioxide (21.0-32.0) meq/L Anion Gap (5-15) meq/L BUN (7-18) mg/dL Creatinine (0.60-1.30) mg/dL Estimated GFR (>89) mL/min POC Glucose 241 H (68-110) mg/dl Random Glucose (74-106) mg/dL Calcium (8.5-10.1) mg/dL Total Bilirubin (0.2-1.0) mg/dL AST (15-37) U/L ALT (12-78) U/L Alkaline Phosphatase (45-117) U/L Total Creatine Kinase (39-308) U/L Troponin I (0.02-0.05) ng/mL Total Protein (6.4-8.2) g/dL Albumin (3.4-5.0) g/dL Imaging Data Radiologist's impression: Chest X-Ray 06/08/18 11:10 CONCLUSION: No acute cardiopulmonary disease. Discharge Plan Discharge Disposition Patient Disposition: 30 Still Patient Discharge Condition Condition: Fair Discharge Details Discharge Comment: Patient is admitted to the medical floor after discussion with Dr. Calderon Diagnosis: Atypical chest pain Physicians Team ED Provider: Aniceto Phillip Primary Care Provider: Flower Griffiths Attending Provider: Moises Calderon Other Providers: Johnny Rico Status ED Status: Left Department Discharge Information Discharge Date/Time: 06/08/18 14:13
[2018-06-08] MEDS ORDERED: Morphine Inj 4 MG/ML Vial IV.PUSH PRN ×2 (13:07)
--- NOTE | 2018-06-08 13:18 | P.HPIM ---
History of Present Illness Primary Care Physician: Flower Griffiths DO History of Present Illness: Mr. Stack is a 62-year-old male. He has an extensive past history of coronary artery disease including bypass surgery and cardiac stents. His last stent was placed in October 2017 (bypass stented). 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 The pressure has persisted. Due to the patient's history he knows this could be cardiac in origin so he came to the hospital. Some chest pressure remains when seen but has subsided with nitroglycerin and pain treatments. Patient denies any known reflux. He has not had any cough recently. Yesterday he was feeling fine. No other complaints at this time. As an outpatient he follows with Dr. Stephen. - Diagnosis (1) Chest pain (2) Coronary artery disease Review of Systems Constitutional: No fevers, no chills no night sweats, no fatigue, no weakness Eyes: No eye pain, no blurry vision, no loss of vision ENT: No sore throat, no ear pain, no rhinorrhea Cardiovascular: chest pain/pressure, no tachycardia, no palpitations, no shortness of breath, no syncope Respiratory: No wheezing, no cough, no shortness of breath Gastrointestinal: No abdominal pain, no black tarry stools, no bright red blood per rectum, no vomiting, no diarrhea Musculoskeletal: No joint pain, no muscle cramps, no stiffness Integumentary: No rash, no ulcers, no drainage Neurologic: No sensory loss, no loss of motor function, no dizziness Psychiatric: No behavioral changes, no hallucinations, no suicidal ideations [facility] - History History Provided By: Patient - Medical History Medical History: Medical History (Last Updated 06/08/18 @ 11:11 by Zully Garcia RN) Diabetes High cholesterol Hypertension - Surgical History Surgical History: Surgical History (Last Updated 06/08/18 @ 11:11 by Zully Garcia RN) H/O aortic valve replacement History of coronary artery stent placement - Family History Family History: Family History (Last Updated 06/08/18 @ 13:12 by Moises Calderon MD) Other Osteoarthritis - Tobacco History Second Hand Smoke Exposure: No Smoking Status: Never smoker - Alcohol History How Often Do You Have a Drink Containing Alcohol: Never - Travel History Recent Travel in the [place] Within the Last 8 Weeks: No Recent Travel Out of the Country Within the Last 8 Weeks: No - Immunization History Tetanus Immunization: >5 Years Hx Influenza Vaccine This Season: No Medications and Allergies Active Medications: Active Medications Acetaminophen (Tylenol) 500 mg PO Q6H PRN PRN Reason: Headache or Pain 1-2 Al Hydroxide/Mg Hydroxide (Milk Of Qian Simsq) 30 ml PO Q12H PRN PRN Reason: Mild Constipation Aspirin (Aspirin) 325 mg PO DAILY SANTOS Heparin Sodium (Porcine) (Heparin Inj) 5,000 units SQ Q12H SANTOS Morphine Sulfate (Morphine Inj) 2 mg IV.PUSH Q4H PRN PRN Reason: Pain 3 to 6 Morphine Sulfate (Morphine Inj) 4 mg IV.PUSH Q4H PRN PRN Reason: Pain 7 to 10 Nitroglycerin (Nitrostat Sl) 0.4 mg SL Q5M PRN PRN Reason: PAIN 1-10 AND/OR FEVER >101F Last Admin: 06/08/18 11:51 Dose: 0.4 mg Ondansetron HCl (Zofran Inj) 4 mg IV.PUSH Q6H PRN PRN Reason: NAUSEA OR VOMITING Sodium Chloride (Ns Flush) 2 ml IV.FLUSH UNSCH PRN PRN Reason: FLUSH AFTER USING IV ACCESS Allergies Allergy/AdvReac Type Severity Reaction Status Date / Time pollen extracts Allergy Intermediate Sneezing Verified 06/08/18 11:09 Home Medications Medication Instructions Recorded Confirmed Type Aspirin Low Dose 81 mg PO DAILY 06/08/18 06/08/18 History Brilinta 180 mg PO DAILY 06/08/18 06/08/18 History atorvastatin 80 mg PO DAILY 06/08/18 06/08/18 History dulaglutide [Trulicity] 1.5 mg SUBCUT QWEEK 06/08/18 06/08/18 History empagliflozin [Jardiance] 25 mg PO DAILY 06/08/18 06/08/18 History isosorbide mononitrate 30 mg PO DAILY 06/08/18 06/08/18 History levothyroxine 1 tab PO DAILY 06/08/18 06/08/18 History losartan 25 mg PO DAILY 06/08/18 06/08/18 History metoprolol tartrate 25 mg PO BID 06/08/18 06/08/18 History montelukast 10 mg PO QPM 06/08/18 06/08/18 History sitagliptin-metformin [Janumet] 1 tab PO DAILY 06/08/18 06/08/18 History Exam Vital signs: Vital Signs 06/08/18 11:07 06/08/18 11:09 06/08/18 11:16 Temperature 98.3 F Pulse Rate 68 76 76 Respiratory Rate 18 18 Blood Pressure 137/77 115/62 Pulse Oximetry 95 96 96 06/08/18 11:42 06/08/18 11:43 Temperature Pulse Rate 68 79 Respiratory Rate 18 Blood Pressure 128/67 Pulse Oximetry 94 L Intake & Output 06/07/18 06/08/18 06/08/18 18:59 06:59 18:59 Weight 92 kg Narrative: GENERAL: NAD, A&Ox3 HEAD: Normocephalic. NECK: Supple, trachea midline. No lymphadenopathy. EYES: No scleral icterus. No injection or drainage. CARDIOVASCULAR: Regular rate and rhythm without murmurs, gallops, or rubs. RESPIRATORY: Breath sounds equal bilaterally. No accessory muscle use. GASTROINTESTINAL: Abdomen soft, non-tender, nondistended. MUSCULOSKELETAL: No cyanosis, or edema. SKIN: Warm and dry. NEURO: No focal neurological deficits. Results - Labs CBC & Chem 7: 06/08/18 11:10 06/08/18 11:10 Labs: Short CBC 06/08/18 Range/Units 11:10 WBC 8.5 (4.0-11.0) th/mm3 Hgb 14.6 (13.0-17.0) gm/dL Hct 44.0 (39.0-51.0) % Plt Count 253 (150-450) th/mm3 BMP 06/08/18 11:10 Sodium 144 Potassium 4.1 Chloride 107 Carbon Dioxide 26.7 BUN 15 Creatinine 1.10 Calcium 8.5 Cardiac Enzymes 06/08/18 Range/Units 11:10 Troponin I Less than 0.02 L (0.02-0.05) ng/mL Liver Function 06/08/18 Range/Units 11:10 Total Bilirubin 1.0 (0.2-1.0) mg/dL AST 35 (15-37) U/L ALT 38 (12-78) U/L Alkaline Phosphatase 77 (45-117) U/L Albumin 3.9 (3.4-5.0) g/dL - Imaging Impressions Chest X-Ray 06/08/18 11:10 CONCLUSION: No acute cardiopulmonary disease. Caprini VTE Risk Assessment Caprini VTE Risk Assessment: Moderate/High Risk (score >= 2) Caprini Risk Assessment Model: Point Value = 1 Point Value = 2 Point Value = 3 Point Value = 5 Age 41-60 Minor surgery BMI > 25 kg/m2 Swollen legs Varicose veins or History of unexplained or recurrent spontaneous Oral contraceptives or hormone replacement Sepsis (< 1 month) Serious lung disease, including pneumonia (< 1 month) Abnormal pulmonary function Acute myocardial infarction Congestive heart failure (< 1 month) History of inflammatory bowel disease Medical patient at bed rest Age 61-74 Arthroscopic surgery Major open surgery (> 45 min) Laparoscopic surgery (> 45 min) Malignancy Confined to bed (> 72 hours) Immobilizing plaster cast Central venous access Age >= 75 History of VTE Family history of VTE Factor V Leiden Prothrombin [id number] Lupus anticoagulant Anticardiolipin antibodies Elevated serum homocysteine Heparin-induced thrombocytopenia Other congenital or acquired thrombophilia Stroke (< 1 month) Elective arthroplasty Hip, pelvis, or leg fracture Acute spinal cord injury (< 1 month) Prophylaxis Regimen: Total Risk Factor Score Risk Level Prophylaxis Regimen 0-1 Low Early ambulation 2 Moderate Order ONE of the following: *Sequential Compression Device (SCD) *Heparin 5000 units SQ BID 3-4 Higher Order ONE of the following medications: *Heparin 5000 units SQ TID *Enoxaparin/Lovenox 40 mg SQ daily (WT < 150 kg, CrCl > 30 mL/min) *Enoxaparin/Lovenox 30 mg SQ daily (WT < 150 kg, CrCl > 10-29 mL/min) *Enoxaparin/Lovenox 30 mg SQ BID (WT < 150 kg, CrCl > 30 mL/min) AND/OR *Sequential Compression Device (SCD) 5 or more Highest Order ONE of the following medications: *Heparin 5000 units SQ TID (Preferred with Epidurals) *Enoxaparin/Lovenox 40 mg SQ daily (WT < 150 kg, CrCl > 30 mL/min) *Enoxaparin/Lovenox 30 mg SQ daily (WT < 150 kg, CrCl > 10-29 mL/min) *Enoxaparin/Lovenox 30 mg SQ BID (WT < 150 kg, CrCl > 30 mL/min) AND *Sequential Compression Device (SCD) Assessment and Plan - Assessment (1) Chest pain Code(s): R07.9 - Chest pain, unspecified Status: Acute (2) Coronary artery disease Code(s): I25.10 - Atherosclerotic heart disease of [place] coronary artery without angina pectoris Status: Acute - Plan 62-year-old male admitted secondary to acute chest pain Chest pain CAD Hx of CABG Hx of Coronary Stent Evaluate for ACS Follow cardiac enzymes Aspirin daily When necessary oxygen When necessary morphine for pain. When necessary nitroglycerin Follow on telemetry Cardiology consulted Hypertension Continue baseline treatment Follow blood pressures Adjust treatments as needed Hyperlipidemia Continue present treatment Follow as an outpatient Diabetes mellitus type 2 Follow blood sugars Insulin sliding scale Diabetic diet DVT prophylaxis Heparin
[2018-06-08] MEDS: Acetaminophen 500 MG Tablet PO PRN ×2 (13:30→20:43)
[2018-06-08] MEDS: Heparin - SQ 10,000 UNITS/ML Vial SQ SCH (13:31)
--- NOTE | 2018-06-08 16:47 | P.PN ---
Subjective Interval history: F/U CP NOT SEEN Physical Exam Vital signs: Vital Signs 06/08/18 11:07 06/08/18 11:09 06/08/18 11:16 Temperature 98.3 F Pulse Rate 68 76 76 Respiratory Rate 18 18 Blood Pressure 137/77 115/62 Pulse Oximetry 95 96 96 06/08/18 11:42 06/08/18 11:43 06/08/18 13:05 Temperature Pulse Rate 68 79 78 Respiratory Rate 18 18 Blood Pressure 128/67 130/73 Pulse Oximetry 94 L 98 Intake & Output 06/07/18 06/08/18 06/08/18 18:59 06:59 18:59 Weight 88.7 kg Other: Weight On Admission 88.7 kg Narrative: GENERAL: NAD, A&Ox3 HEAD: Normocephalic. NECK: Supple, trachea midline. No lymphadenopathy. EYES: No scleral icterus. No injection or drainage. CARDIOVASCULAR: Regular rate and rhythm without murmurs, gallops, or rubs. RESPIRATORY: Breath sounds equal bilaterally. No accessory muscle use. GASTROINTESTINAL: Abdomen soft, non-tender, nondistended. MUSCULOSKELETAL: No cyanosis, or edema. SKIN: Warm and dry. NEURO: No focal neurological deficits. Results - Labs CBC & Chem 7: 06/08/18 11:10 06/08/18 11:10 Laboratory Results - last 24 hr 06/08/18 06/08/18 11:10 11:10 CBC w Diff Auto diff final WBC 8.5 RBC 5.08 Hgb 14.6 Hct 44.0 MCV 86.6 MCH 28.8 MCHC 33.2 RDW 14.9 Plt Count 253 MPV 8.8 Neut % (Auto) 70.0 Lymph % (Auto) 18.3 [place] % (Auto) 7.1 Eos % (Auto) 3.3 Baso % (Auto) 1.3 Neut # (Auto) 5.9 Lymph # (Auto) 1.6 [place] # (Auto) 0.6 Eos # (Auto) 0.3 Baso # (Auto) 0.1 WBC Differential . Differential Comment . Sodium 144 Potassium 4.1 Chloride 107 Carbon Dioxide 26.7 Anion Gap 10 BUN 15 Creatinine 1.10 Estimated GFR 68 L Random Glucose 113 H Calcium 8.5 Total Bilirubin 1.0 AST 35 ALT 38 Alkaline Phosphatase 77 Troponin I Less than 0.02 L Total Protein 7.4 Albumin 3.9 - Imaging Impressions Chest X-Ray 06/08/18 11:10 CONCLUSION: No acute cardiopulmonary disease. Assessment and Plan - Assessment (1) Chest pain Code(s): R07.9 - Chest pain, unspecified Status: Acute (2) Coronary artery disease Code(s): I25.10 - Atherosclerotic heart disease of [place] coronary artery without angina pectoris Status: Acute - Plan 62-year-old male admitted secondary to acute chest pain Chest pain CAD Hx of CABG Hx of Coronary Stent Evaluate for ACS Follow cardiac enzymes Aspirin daily When necessary oxygen When necessary morphine for pain. When necessary nitroglycerin Follow on telemetry Cardiology consulted Hypertension Continue baseline treatment Follow blood pressures Adjust treatments as needed Hyperlipidemia Continue present treatment Follow as an outpatient Diabetes mellitus type 2 Follow blood sugars Insulin sliding scale Diabetic diet DVT prophylaxis Heparin
[2018-06-08] MEDS ORDERED: Dextrose 50% in Water 50 ML Vial IV.PUSH PRN (16:49)
--- NOTE | 2018-06-08 17:23 | ECG ---
Date Performed: 06/08/2018 Time Performed: 11:06:06 PTAGE: 62 years EKG: Sinus rhythm MARKED RIGHT AXIS DEVIATION INTRAVENTRICULAR CONDUCTION DELAY POSSIBLE ANTERIOR MYOCARDIAL INFARCTIO N ABNORMAL ECG PREVIOUS TRACING : 12/17/2017 05.39 Since the previous tracing, no significant change noted DOCTOR: Scooby Nunez Interpretating Date/Time 06/08/2018 17:21:41
[2018-06-08] MEDS: Insulin NovoLOG Aspart Correctional Sugar Inj SQ SCH ×2 (17:28→20:50)
[2018-06-08] MEDS: Montelukast 10 MG Tablet PO SCH (17:28)
[2018-06-08 17:47] LABS: Creatine Kinase 197 U/L (39-308)
[2018-06-08] MEDS ORDERED: Montelukast 10 MG Tablet PO SCH (18:00)
[2018-06-08] MEDS: Metoprolol Tartrate 25 MG Tablet PO SCH (20:43)
--- NOTE | 2018-06-08 21:57 | ECG ---
Date Performed: 06/08/2018 Time Performed: 17:00:50 PTAGE: 62 years EKG: Sinus rhythm RIGHT AXIS ANTEROSEPTAL MYOCARDIAL INFARCTION ABNORMAL ECG PREVIOUS TRACING : 06/08/2018 11.06 Since the previous tracing, no significant change noted DOCTOR: Brittaney Sena Interpretating Date/Time 06/08/2018 21:56:25
[2018-06-08 23:01] LABS: Creatine Kinase 166 U/L (39-308)
[2018-06-09] MEDS: Heparin - SQ 10,000 UNITS/ML Vial SQ SCH ×2 (01:15→15:07)
[2018-06-09] MEDS: Insulin NovoLOG Aspart Correctional Sugar Inj SQ SCH ×4 (07:30→21:17)
--- NOTE | 2018-06-09 08:14 | P.PN ---
Subjective Interval history: Follow-up chest pain. Currently pain-free. Discussed with cardiology, stat transfer to main hospital for cardiac catheterization Physical Exam Vital signs: Vital Signs 06/08/18 11:07 06/08/18 11:09 06/08/18 11:16 Temperature 98.3 F Pulse Rate 68 76 76 Respiratory Rate 18 18 Blood Pressure 137/77 115/62 Pulse Oximetry 95 96 96 06/08/18 11:42 06/08/18 11:43 06/08/18 13:05 Temperature Pulse Rate 68 79 78 Respiratory Rate 18 18 Blood Pressure 128/67 130/73 Pulse Oximetry 94 L 98 06/08/18 18:51 06/08/18 20:00 06/08/18 20:05 Temperature 97.4 F L Pulse Rate 67 63 Respiratory Rate 20 Blood Pressure 126/70 Pulse Oximetry 95 95 06/09/18 00:00 06/09/18 04:00 Temperature 96.9 F L 97.3 F L Pulse Rate 68 61 Respiratory Rate 20 20 Blood Pressure 127/72 127/74 Pulse Oximetry 97 95 Intake & Output 06/08/18 06/09/18 06/09/18 18:59 06:59 18:59 Intake Total 0 / 0 Balance 0 / 0 Weight 88.7 kg 89 kg Intake: Oral 0 / 0 Other: # Voids 2 2 Weight On Admission 88.7 kg Narrative: GENERAL: NAD, A&Ox3 CARDIOVASCULAR: Regular rate and rhythm without murmurs, gallops, or rubs. RESPIRATORY: Breath sounds equal bilaterally. No accessory muscle use. GASTROINTESTINAL: Abdomen soft, non-tender, nondistended. MUSCULOSKELETAL: No cyanosis, or edema. SKIN: Warm and dry. NEURO: No focal neurological deficits. Results - Labs CBC & Chem 7: 06/08/18 11:10 06/08/18 11:10 Laboratory Results - last 24 hr 06/08/18 06/08/18 06/08/18 11:10 11:10 17:05 CBC w Diff Auto diff final WBC 8.5 RBC 5.08 Hgb 14.6 Hct 44.0 MCV 86.6 MCH 28.8 MCHC 33.2 RDW 14.9 Plt Count 253 MPV 8.8 Neut % (Auto) 70.0 Lymph % (Auto) 18.3 [place] % (Auto) 7.1 Eos % (Auto) 3.3 Baso % (Auto) 1.3 Neut # (Auto) 5.9 Lymph # (Auto) 1.6 [place] # (Auto) 0.6 Eos # (Auto) 0.3 Baso # (Auto) 0.1 WBC Differential . Differential Comment . Sodium 144 Potassium 4.1 Chloride 107 Carbon Dioxide 26.7 Anion Gap 10 BUN 15 Creatinine 1.10 Estimated GFR 68 L POC Glucose Random Glucose 113 H Calcium 8.5 Total Bilirubin 1.0 AST 35 ALT 38 Alkaline Phosphatase 77 Total Creatine Kinase 197 Troponin I Less than 0.02 L Less than 0.02 L Total Protein 7.4 Albumin 3.9 06/08/18 06/08/18 06/08/18 17:24 20:45 22:40 CBC w Diff WBC RBC Hgb Hct MCV MCH MCHC RDW Plt Count MPV Neut % (Auto) Lymph % (Auto) [place] % (Auto) Eos % (Auto) Baso % (Auto) Neut # (Auto) Lymph # (Auto) [place] # (Auto) Eos # (Auto) Baso # (Auto) WBC Differential Differential Comment Sodium Potassium Chloride Carbon Dioxide Anion Gap BUN Creatinine Estimated GFR POC Glucose 241 H 78 Random Glucose Calcium Total Bilirubin AST ALT Alkaline Phosphatase Total Creatine Kinase 166 Troponin I Less than 0.02 L Total Protein Albumin 06/09/18 07:29 CBC w Diff WBC RBC Hgb Hct MCV MCH MCHC RDW Plt Count MPV Neut % (Auto) Lymph % (Auto) [place] % (Auto) Eos % (Auto) Baso % (Auto) Neut # (Auto) Lymph # (Auto) [place] # (Auto) Eos # (Auto) Baso # (Auto) WBC Differential Differential Comment Sodium Potassium Chloride Carbon Dioxide Anion Gap BUN Creatinine Estimated GFR POC Glucose 95 Random Glucose Calcium Total Bilirubin AST ALT Alkaline Phosphatase Total Creatine Kinase Troponin I Total Protein Albumin - Imaging Impressions Chest X-Ray 06/08/18 11:10 CONCLUSION: No acute cardiopulmonary disease. Assessment and Plan - Assessment (1) Chest pain Code(s): R07.9 - Chest pain, unspecified Status: Acute (2) Coronary artery disease Code(s): I25.10 - Atherosclerotic heart disease of [place] coronary artery without angina pectoris Status: Acute - Plan 62-year-old male admitted secondary to acute chest pain Chest pain CAD Hx of CABG Hx of Coronary Stent Patient ruled out for HI. Discussed with cardiology transfer to main hospital for cardiac catheterization. Aspirin, beta-fabricio, nitrate and statin When necessary oxygen When necessary morphine for pain. When necessary nitroglycerin Follow on telemetry Cardiology consulted Hypertension Continue baseline treatment Follow blood pressures Adjust treatments as needed Hyperlipidemia Continue present treatment Follow as an outpatient Diabetes mellitus type 2 Follow blood sugars Insulin sliding scale Diabetic diet DVT prophylaxis Heparin
[2018-06-09] MEDS: Isosorbide Mononitrate 30 MG ER 24HR Tablet (Imdur) PO SCH (08:48)
[2018-06-09] MEDS: Metoprolol Tartrate 25 MG Tablet PO SCH ×2 (08:49→21:05)
[2018-06-09] MEDS: Montelukast 10 MG Tablet PO SCH (08:49)
[2018-06-09] MEDS ORDERED: fentaNYL Citrate Inj 100 MCG/2 ML Ampul IV.PUSH SCH (09:15)
--- NOTE | 2018-06-09 11:06 | MB ---
cc: Scooby Nunez MD DATE: 06/09/2018 REASON FOR CONSULTATION: Unstable angina. HISTORY OF PRESENT ILLNESS: The patient is a very pleasant 62-year-old gentleman known to me, who has a history of complex coronary disease. Most recent cardiac catheterization 12/25/2017, at which time there was in-stent restenosis of the SVG to the right coronary artery with residual piiaopxk-mi-cublyu coronary artery disease of the left main and obtuse marginal not supplied by a vein graft. Otherwise, 2 out of 3 grafts were patent. 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 This pain persisted even after he rested for quite a while and so he presented to the emergency department where he was ruled out for OK. The patient says that this morning while resting in bed, he has no further symptoms. However, obviously is still concerned about the event yesterday. He denies any current chest pain, shortness of breath, lightheadedness, and syncope. PAST MEDICAL HISTORY: Coronary artery disease as above, hypertension, hyperlipidemia, diabetes, BPH. CURRENT MEDICATIONS: Subcutaneous heparin, Imdur 30 mg a day, Synthroid, Cozaar, Lopressor 25 mg b.i.d., Singulair, Brilinta 180 mg daily (this should be 90 mg b.i.d.). ALLERGIES: POLLEN. PHYSICAL EXAMINATION: VITAL SIGNS: Afebrile, pulse 61, respiratory rate 20, BP 127/74, saturating 95% on room air. GENERAL: Pleasant gentleman in no distress. NECK: No JVD. LUNGS: Clear to auscultation bilaterally. CARDIOVASCULAR: Regular rate and rhythm. No murmurs appreciated. ABDOMEN: Benign. EXTREMITIES: No edema. DIAGNOSTIC DATA: White count 8.5, hematocrit 44, platelets 253. Sodium 144, potassium 4.1, chloride 107, bicarbonate 26.7, BUN 15, creatinine 1.1, glucose 113. Cardiac enzymes are negative x 3. EKG shows sinus rhythm with possible old anterior infarct pattern but no acute ST or T-wave changes. IMPRESSION AND PLAN: Unstable angina. The patient with known residual coronary artery disease, presents with convincing unstable angina despite 2 antianginal medications. I discussed a conservative noninvasive strategy versus going right to cardiac catheterization with the patient and he opted to proceed directly to catheterization, which I also agree with. He will be transferred stat to the [facility] and Dr. Johnny Rico will be performing a cardiac catheterization at approximately 3 p.m. today. I will change his Brilinta 90 mg b.i.d. and otherwise continue the medical therapy. I will restart his Lipitor. Further recommendations based on the above. Thank you again for the opportunity to participate in the patient's care. MD DEBORA Castellano/pia , 07:51 AM , 07:58 AM
[2018-06-09] MEDS ORDERED: Aspirin 325 MG Tablet ONE (11:28)
[2018-06-09] MEDS: Sod Chloride 0.9% Inj 1,000 ML IV.CONT SCH ×3 (11:38→22:34)
[2018-06-09] MEDS ORDERED: Iohexol 350 MG/ML 50 ML Vial (for Cath Lab) IVCONTRAST ONE (12:25)
[2018-06-09] MEDS ORDERED: Iohexol 350 MG/ML 100 ML Vial (for Cath Lab) IVCONTRAST ONE (12:25)
[2018-06-09] MEDS ORDERED: Heparin/NS PF Inj 1,500 ML ONE (13:08)
[2018-06-09] MEDS ORDERED: fentaNYL Citrate Inj 100 MCG/2 ML Ampul ONE (13:16)
[2018-06-09] MEDS ORDERED: Heparin 10,000 UNITS/10 ML Vial (for IV use) ONE (13:16)
[2018-06-09] MEDS ORDERED: Heparin/NS PF Inj 500 ML ONE (13:16)
[2018-06-09] MEDS ORDERED: Aspirin 325 MG Tablet PO SCH (14:00)
[2018-06-09] MEDS ORDERED: Tirofiban Inj 12,500 MCG/250 ML PLAST..BAG ONE (14:06)
--- NOTE | 2018-06-09 15:07 | CATHPROC ---
[employer] HIS Report Study Information Study Number Admission Scheduled Start Study Start [id number] Jun 08 2018 12:24PM 06/09/2018 Jun 09 2018 1:02PM [facility] [facility] Cardiac Catheterization Admit Source Facility Department Other [facility] - Airplane Pilot Physician and Clinical Staff Initial Jonny Iyer Rn Liaison Yvonne Krishnan,PARMINDER Recorder Lindsey Avalos ,RT(R) Scrub Rom Dobbins,RT(R) Procedures Performed Procedure Location (Site) Vessel Name Coronary Angiograms LCA Left Coronary Coronary Angiograms RCA Right Coronary Coronary Angiograms CHIN-LAD Left Coronary Coronary Angiograms SVG-RCA Right Coronary Drug Eluting Inflatio LEFT MAIN ARTERY-(11 Left Coronary Drug Eluting Inflatio OM1 Mid CIRC L Heart Cath PTCA LEFT MAIN ARTERY-(11 Left Coronary PTCA OM1 Mid CIRC Wire insertion Fem Art (right) Femoral Art Equipment Time Head Of Precision Targeting Description Size Mfg Part Number Used/Scraped [id number] 14:06 [employer] WIRE, [email or web address] PROWATER 180CM 180CM Used *[id number] TRANSDUCER, TRUWAVE [id number] 13:05 AGNT MOLINA * Used W/STOCKCOCK *[id number] [id number] *[id number] 534-660T *[id number] 534-660T *[id number] 534-620T *[id number] *[id number] 534-642T *[id number] *[id number] 14:45 DAIG/[employer]. [employer] ANGIOSEAL, FR6 VIP FR 6 Used *[id number] 13:05 [employer] BLANKET,WARM AIR CCL * Used *[id number] 13:05 [employer] PACK, CCL CUSTOM * Used *[id number] 13:05 [facility] PACER PEN, SKIN DUAL W/ RULER * Used *[id number] 14:10 [employer] BALLOON, 2.5 X 15MM EUPHORA 15MM Used *[id number] BALLOON, 3.75 X 8MM NC [id number] 14:27 [employer] 8MM Used EUPHORA *[id number] BALLOON, 4.0 X 8MM NC [id number] 14:38 [employer] 8MM Used EUPHORA *[id number] 14:13 [employer] STENT, 2.5 18MM KAL 2.5 18MM Used *[id number] 14:23 [employer] STENT, 2.5 22MM KAL 2.5 22MM [id number] 14:33 [employer]IC STENT, 4.0 8MM KAL 4.0 8MM Used *[id number] 14:11 [employer] MEDICAL 30 REYNA INDEFLATOR Used *[id number] 13:05 [employer] MEDICAL SHEATH, FR6.5 PRELUDE 11CM FR 6.5 038ACT Used *[id number] 13:05 [employer] MEDICAL WIRE, 3MMJ .035 180CM 180CM Used *[id number] 13:05 NAMIC MANIFOLD, 4 PORT * Used *[id number] 13:05 [employer] OMNIPAQUE, 350 MG, 150ML 150ML [id number] Used 13:52 [employer] OMNIPAQUE, 350 MG, 150ML 150ML [id number] Used 14:39 [employer] OMNIPAQUE, 350 MG, 50ML 50ML [id number] Used [id number] 13:56 [employer] PRIME WIRE, VERRATA 185CM 185CM Used *[id number] Equipment Model, Serial, Lot Number and Expiration Data Description Model Number Serial Number Lot Number Expiration Date ANGIOSEAL, FR6 [facility] [id number] 01-04-2019 BALLOON, 3.75 X 8MM NC [id number] 06-19-2019 EUPHORA BALLOON, 4.0 X 8MM NC EUPHORA [id number] 11-23-2019 PRIME WIRE, VERRATA 185CM [id number] 02-04-2021 STENT, 2.5 18MM KAL [id number] 11-04-2019 STENT, 2.5 22MM KAL [id number] 08-05-2019 STENT, 4.0 8MM KAL [id number] 12-03-2019 History: Current Medications Medication Dosage/Unit Route Frequency Last Date/Time Taken Statins (any) COZAAR ASA BRILLINTA History: Risk Factors Family History of Hypertension Dyslipidemia Previous MS Previous Heart Failure Premature CAD Yes Yes Yes No No Prior Valve Prior PCI Prior PCIDate Prior CABG Prior CABGDate Surgery No Yes 12/16/2017 Yes 01/04/2015 Cerebrovascular Peripheral Artery Chronic Lung On Dialysis Diabetes Diabetes Therapy Disease Disease Disease No No No No Yes Insulin Labs Hgb (g/dl) Hct (%) WBC (l/cumm) Platelets (thousands) 11.60-17.00 35.00-51.00 4.00-11.00 150.00-450.00 14.6 44 8.5 253 Glucose (mg/dl) BUN (mg/dl) Creatinine (mg/dl) BUN:Creatinine (1:x) 74.00-106.00 7.00-18.00 0.50-1.30 10.00-20.00 113 15 1.1 13.6 Na (meq/l) K (meq/l) 136.00-145.00 3.50-5.10 144 4.1 Troponin I (ng/ml) CPK (u/l) CPK-MB (ng/ML) 0.02-0.05 26.00-308.00 0.50-3.60 0.02 166 Not Drawn Medication Medication Total Dose (Bolus/Oral) Medication Total Dosage/Unit 1% XYLOCAINE 15 mL AGGRASTAT BOLUS 46 mL FENTANYL 50 mcg HEPARIN 33203 units NTG (IC) 50 mcg VERSED 2 mg Medications (Bolus/Oral) Medication Time Given Dosage/Unit Administered By Reason VERSED 06/09/2018 1:35:24 PM 2 mg Yvonne Krishnan 2 mg VERSED given in lab by Yvonne Krishnan, PARMINDER in Left Antecubital via Peripheral IV. Ordered by Jonny Cano. FENTANYL 06/09/2018 1:36:36 PM 50 mcg Yvonne Krishnan 50 mcg FENTANYL given in lab by Yvonne Krishnan RN in Left Antecubital via Peripheral IV. Ordered by Jonny Lawton. 1% XYLOCAINE 06/09/2018 1:37:55 PM 15 mL Jonny Lawton 15 mL 1% XYLOCAINE given in lab by Jonny Lawton in Right Groin via Subcutaneous. Ordered by Dominguez Lawton. HEPARIN 06/09/2018 1:55:56 PM 6200 units Yvonne Krishnan 6200 units HEPARIN given in lab by Yvonne Krishnan, PARMINDER in Left Antecubital via Peripheral IV. Ordered by Jonny Lawton. HEPARIN 06/09/2018 2:06:09 PM 5000 units Yvonne Krishnan 5000 units HEPARIN given in lab by Yvonne Krishnan, PARMINDER in Left Antecubital via Peripheral IV. Ordered by Jonny Lawton. AGGRASTAT BOLUS 06/09/2018 2:12:11 PM 46 mL Yvonne Krishnan 46 mL AGGRASTAT BOLUS given in lab by Yvonne Krishnan, PARMINDER via Peripheral IV. Ordered by Jonny Lawton. NTG (IC) 06/09/2018 2:19:10 PM 50 mcg Jonny Lawton 50 mcg NTG (IC) given in lab by Jonny Lawton via Intra-coronary. Ordered by Jonny Lawton. Medication (Drip) Medication Time Given Dosage/Unit Concentration/Unit Diluent (ml) Solution AGGRASTAT DRIP 06/09/2018 2:16:00 PM 0.15 mcg/kg/min 12.5 mg 250 NaCl .9 0.15 mcg/kg/min AGGRASTAT DRIP given in lab by Yvonne Krishnan, PARMINDER via Peripheral IV. Pump/Drip Flow = 16.04 ml/hr using NaCl .9 with a concentration of 12.5 mg in 250 ml. Ordered by Jonny Lawton. IV Solutions 06/09/2018 1:09:52 PM 50 mL (IV) NaCl .9 Patient arrived on IV Solutions via Peripheral IV. Pump/Drip Flow using NaCl .9. Initial Case Assessment Cardiovascular HR NIBP 66 125/81 Edema Present Skin color Skin None Normal Warm Dry Circulatory - Right Pulses Dorsalis Pedis Femoral 3 2 Scale (0,1,2,3,4,d) Circulatory - Left Pulses Dorsalis Pedis Femoral 3 2 Scale (0,1,2,3,4,d) Neurological State Oriented to time-place- Alert Moves all extremities person Respiration - General Respiration Rate SpO2 (%) (B/min) 4 98 Final Case Assessment Cardiovascular HR NIBP 66 125/71 Edema Present Skin color Skin None Normal Warm Dry Circulatory - Right Pulses Dorsalis Pedis Femoral 3 2 Scale (0,1,2,3,4,d) Circulatory - Left Pulses Dorsalis Pedis Femoral 3 2 Scale (0,1,2,3,4,d) Neurological State Oriented to time-place- Alert Moves all extremities person Respiration - General Respiration Rate SpO2 (%) (B/min) 17 100 Chronological Log Time Study Chronological Log 13:07:09 Patient arrived via Bed. 13:07:10 Patient Name, D.O.B, / Armband Verified By R.N. 13:09:23 Consent signed by the physician and the patient and verified by the Airplane Pilot staff. 13:09:30 Pre-op and post- op instructions given; patient acknowledges understanding of instructions. 13:09:30 Verbal Stimulation=2 Physical Stimulation=2 Airway=2 Respiration=2 TOTAL=8. (0=absent, 1=li mited, 2=present) 13:09:36 Patient has been NPO for More than 6Hrs. 13:09:42 Skin Breakdown- none per patient 13:09:44 Patient Warmer Placed on the Table. 13:09:51 Tarik Prominences Protected 13:09:52 A # 20 IV was noted in the Antecubital (left). Grade = 0 13:09:52 Patient arrived on IV Solutions via Peripheral IV. Pump/Drip Flow using NaCl .9. 13:09:53 History and physical on the chart or being dictated. Assessment: Initial Case, HR=66 BPM, HDWA=281/81 mmhg, Edema=None, Color=Normal, Skin = Warm, D ry Right Pulses: Patrick Ped=3, Femoral=2 13:09:54 Left Pulses: Patrick Ped=3, Femoral=2 Neurological: State=Alert, Ox3, MARIO Respiration: Resp=4 B/min, SpO2=98 % Vitals capture started with the following parameters, Patient=Adult, Interval=5 min, Initial Pr srrbvt=415 mmHg, 13:10:54 Deflation Rate=5 mmHg, Cuff placed on Left Arm 13:11:32 YZLV=844/81 mmhg, SpO2=0.0 % 13:14:11 Reference ECG taken 13:16:27 HR=64 bpm, OQBF=312/80 mmhg, SpO2=97.0 %, Resp=15 B/min 13:21:00 Pressure channel 2 zeroed. 13:21:28 HR=62 bpm, URVK=873/74 mmhg, SpO2=98.0 %, Resp=19 B/min 13:24:41 MD paged 13:26:31 HR=66 bpm, QDMF=559/68 mmhg, SpO2=97.0 %, Resp=18 B/min 13:28:24 MD responded 13:31:30 HR=68 bpm, XNNZ=278/75 mmhg, SpO2=98.0 %, Resp=14 B/min 13:32:31 MD arrived. 13:35:24 2 mg VERSED given in lab by Yvonne Krishnan, RN in Left Antecubital via Peripheral IV. Orde red by Jonny Lawton. 13:36:31 HR=65 bpm, ZKHW=587/77 mmhg, SpO2=99.0 %, Resp=16 B/min 13:36:36 50 mcg FENTANYL given in lab by Yvonne Krishnan, RN in Left Antecubital via Peripheral IV. Ordered by Jonny Lawton. Time Out. Correct patient, correct procedure, correct physician, labs, allergies, and equipment verified with photo lab specialist 13:37:02 team present. Fire risk assesment completed (see hard stop sheet for coding). Time Out Conc urred by MD and individual staff in procedure. 13:37:54 Case Start 13:37:55 15 mL 1% XYLOCAINE given in lab by Jonny Lawton in Right Groin via Subcutaneous. Ordered by Jonny Lawton. 13:38:45 Access site was Right Femoral Artery. 13:38:53 A SHEATH, FR6.5 PRELUDE 11CM FR 6.5 was advanced into the Fem Art (right) using the Percuta neous technique. A JL 4.0 INFINITI CATHETER FR 6 was advanced over a wire. OMNIPAQUE, 350 MG, 150ML 150ML was us ed for 13:39:21 injections. 13:40:22 The LCA was injected and visualized at various angles. OMNIPAQUE, 350 MG, 150ML 150ML used . Recorded Pressure: Ao, TS=804, Condition=Condition 1 13:40:46 (Aorta) Ao 84/50/66 13:41:31 Catheter was removed 13:41:32 HR=94 bpm, XVBU=418/66 mmhg, SpO2=96.0 %, Resp=11 B/min A 3DRC INFINITI CATHETER FR 6 was advanced over a wire. OMNIPAQUE, 350 MG, 150ML 150ML was used for 13:41:55 injections. 13:42:40 The RCA was injected and visualized at various angles. OMNIPAQUE, 350 MG, 150ML 150ML used . 13:44:36 The CHIN-LAD was injected and visualized at various angles. OMNIPAQUE, 350 MG, 150ML 150ML used. 13:45:36 Catheter was removed 13:46:27 HR=70 bpm, TXZY=496/70 mmhg, SpO2=94.0 %, Resp=17 B/min A SANDEEP INFINITI CATHETER FR 6 was advanced over a wire. OMNIPAQUE, 350 MG, 150ML 150ML was used for 13:46:35 injections. 13:50:12 Catheter was removed A MPA-2 INFINITI CATHETER FR 6 was advanced over a wire. OMNIPAQUE, 350 MG, 150ML 150ML was use d for 13:50:32 injections. 13:51:32 HR=68 bpm, UNVO=561/65 mmhg, SpO2=94.0 %, Resp=8 B/min 13:51:47 The SVG-RCA was injected and visualized at various angles. OMNIPAQUE, 350 MG, 150ML 150ML u sed. 13:52:36 Catheter was removed A MPA-1 GUIDE CATHETER FR 6 was advanced over a wire. OMNIPAQUE, 350 MG, 150ML 150ML was used f or 13:55:44 injections. 13:55:56 6200 units HEPARIN given in lab by Yvonne Krishnan RN in Left Antecubital via Peripheral I V. Ordered by Jonny Lawton. 13:56:34 HR=67 bpm, JJCM=237/65 mmhg, SpO2=96.0 %, Resp=8 B/min 13:59:53 Pressure channel 2 zeroed. 14:01:15 Activated Clotting Time Drawn 14:01:33 HR=69 bpm, GZBY=207/65 mmhg, SpO2=99.0 %, Resp=8 B/min 14:01:59 A PRIME WIRE, VERRATA 185CM 185CM was inserted via Fem Art (right). 14:03:40 Flow Wire was was placed in the SVG-RCA. The FFR measures ~FFR~ percent. The IFR measures 0 .98 Percent. 14:03:57 The PRIME WIRE, VERRATA 185CM 185CM was removed. A XB 3.5 GUIDE CATHETER FR 6 was advanced over a wire. OMNIPAQUE, 350 MG, 150ML 150ML was used for 14:05:06 injections. 14:06:09 5000 units HEPARIN given in lab by Yvonne KrishnanPARMINDER in Left Antecubital via Peripheral I V. Ordered by Jonny Lawton. 14:06:32 HR=65 bpm, EIJE=761/63 mmhg, WsY3=069.0 %, Resp=8 B/min 14:08:10 A WIRE, ASAHI PROWATER 180CM 180CM was inserted via Fem Art (right). 14:09:29 Interventional wire has crossed the lesion 14:10:09 A BALLOON, 2.5 X 15MM EUPHORA 15MM was inserted over WIRE, ASAHI PROWATER 180CM 180CM via t he OM1 Mid. A BALLOON, 2.5 X 15MM EUPHORA 15MM over a WIRE, ASAHI PROWATER 180CM 180CM in the OM1 Mid was i nflated 14:11:08 using a 30 REYNA INDEFLATOR at 14 reyna for 30 sec. 14:11:33 HR=65 bpm, KQKR=044/66 mmhg, XlZ5=669.0 %, Resp=6 B/min A BALLOON, 2.5 X 15MM EUPHORA 15MM over a WIRE, ASAHI PROWATER 180CM 180CM in the OM1 Mid was i nflated 14:11:46 using a 30 REYNA INDEFLATOR at 14 reyna for 15 sec. 14:12:11 46 mL AGGRASTAT BOLUS given in lab by Yvonne Krishnan RN via Peripheral IV. Ordered by Jonny Cano. 14:12:59 ACT (Normal Range 90-180) = 179 14:13:13 Activated Clotting Time Drawn A STENT, 2.5 18MM KAL 2.5 18MM was advanced through a MPA-1 GUIDE CATHETER FR 6 over a WIRE, A MONICA 14:14:27 PROWATER 180CM 180CM. 0.15 mcg/kg/min AGGRASTAT DRIP given in lab by Yvonne Krishnan, RN via Peripheral IV. Pump/Drip Flow = 16.04 14:16:00 ml/hr using NaCl .9 with a concentration of 12.5 mg in 250 ml. Ordered by Jonny Lawton. 14:16:32 Stent not deployed. Stent removed and intact. 14:16:34 HR=62 bpm, NLAR=864/70 mmhg, QxY8=185.0 %, Resp=12 B/min 14:17:01 A BALLOON, 2.5 X 15MM EUPHORA 15MM was inserted over WIRE, ASAHI PROWATER 180CM 180CM via t he OM1 Mid. A BALLOON, 2.5 X 15MM EUPHORA 15MM over a WIRE, ASAHI PROWATER 180CM 180CM in the OM1 Mid was i nflated 14:18:14 using a 30 REYNA INDEFLATOR at 12 reyna for 30 sec. A BALLOON, 2.5 X 15MM EUPHORA 15MM over a WIRE, ASAHI PROWATER 180CM 180CM in the OM1 Mid was i nflated 14:19:06 using a 30 REYNA INDEFLATOR at 14 reyna for 30 sec. 14:19:10 50 mcg NTG (IC) given in lab by Jonny Lawton via Intra-coronary. Ordered by Jonny Lawton. 14:19:23 ACT (Normal Range 90-180) = 318 14:19:53 Balloon Removed. 14:21:37 HR=63 bpm, PWOE=207/71 mmhg, SlD6=805.0 %, Resp=10 B/min A STENT, 2.5 22MM KAL 2.5 22MM was advanced through a MPA-1 GUIDE CATHETER FR 6 over a WIRE, A MONICA 14:21:37 PROWATER 180CM 180CM. A STENT, 2.5 22MM KAL 2.5 22MM was deployed using a 30 REYNA INDEFLATOR at 16 atmospheres for 30 seconds in 14:23:47 the OM1 Mid. 14:24:55 Delivery device removed 14:26:36 HR=65 bpm, XZZZ=096/70 mmhg, SyO9=429.0 %, Resp=8 B/min A BALLOON, 3.75 X 8MM NC EUPHORA 8MM was inserted over WIRE, ASAHI PROWATER 180CM 180CM via the OM1 14:28:12 Mid. A BALLOON, 3.75 X 8MM NC EUPHORA 8MM over a WIRE, ASAHI PROWATER 180CM 180CM in the LEFT MAIN A RTERY- 14:28:59 (11 was inflated using a 30 REYNA INDEFLATOR at 8 reyna for 20 sec. A BALLOON, 3.75 X 8MM NC EUPHORA 8MM over a WIRE, ASAHI PROWATER 180CM 180CM in the LEFT MAIN A RTERY- 14:30:02 (11 was inflated using a 30 REYNA INDEFLATOR at 18 reyna for 30 sec. 14:30:49 Balloon Removed. 14:31:39 HR=65 bpm, PXRI=797/62 mmhg, JnL9=924.0 %, Resp=12 B/min A STENT, 4.0 8MM KAL 4.0 8MM was advanced through a MPA-1 GUIDE CATHETER FR 6 over a WIRE, ASA HI 14:32:04 PROWATER 180CM 180CM. A STENT, 4.0 8MM KAL 4.0 8MM was deployed using a 30 REYNA INDEFLATOR at 15 atmospheres for 30 s econds in the 14:34:26 LEFT MAIN ARTERY-(11. 14:35:27 Delivery device removed 14:36:38 HR=63 bpm, CIJI=202/72 mmhg, DyS6=381.0 %, Resp=19 B/min A BALLOON, 4.0 X 8MM NC EUPHORA 8MM was inserted over WIRE, ASAHI PROWATER 180CM 180CM via the LEFT 14:39:07 MAIN ARTERY-(11. A BALLOON, 4.0 X 8MM NC EUPHORA 8MM over a WIRE, ASAHI PROWATER 180CM 180CM in the LEFT MAIN AR ALEJO- 14:40:12 (11 was inflated using a 30 REYNA INDEFLATOR at 19 reyna for 30 sec. A BALLOON, 4.0 X 8MM NC EUPHORA 8MM over a WIRE, ASAHI PROWATER 180CM 180CM in the LEFT MAIN AR ALEJO- 14:40:48 (11 was inflated using a 30 REYNA INDEFLATOR at 19 reyna for 30 sec. 14:41:39 HR=65 bpm, JXUN=751/71 mmhg, ElA6=906.0 %, Resp=16 B/min 14:41:40 Balloon Removed. 14:42:26 The WIRE, ASAHI PROWATER 180CM 180CM was removed. 14:42:40 Catheter was removed 14:43:35 Case End (Physician broke scrub) 14:44:18 An injection in the Fem Art (right) was made through the SHEATH, FR6.5 PRELUDE 11CM FR 6.5. Assessment: Final Case, HR=66 BPM, KDIX=427/71 mmhg, Edema=None, Color=Normal, Skin = Warm, Dry Right Pulses: Patrick Ped=3, Femoral=2 14:45:34 Left Pulses: Patrick Ped=3, Femoral=2 Neurological: State=Alert, Ox3, MARIO Respiration: Resp=17 B/min, DbT3=608 % 14:45:57 Catheter(s) removed without difficulty 14:46:04 ANGIOSEAL, FR6 VIP FR 6 placement in the Fem Art (right) 14:46:15 No case complications noted. 14:46:17 Cine recording checked. 14:46:22 Bedside Report will be given. 14:46:31 A Left Heart Cath was performed. 14:46:38 HR=66 bpm, PPSE=889/71 mmhg, LgP9=859.0 %, Resp=13 B/min 14:47:47 Implantable Device card placed in patient's chart. 14:52:18 HR=69 bpm, PBES=961/73 mmhg, SpO2=99.0 %, Resp=19 B/min 14:56:20 Vitals capture stopped. 14:57:02 Patient moved to [facility] End Study - Contrast Media Used In Study Contrast Total Opened (mL) Total Used (mL) Total Wasted (mL) Omnipaque 250 250 0 End Study - Maximum Contrast Load Max Contrast Load (mL) 405.0 End Study - Radiation Exposure Fluoro Time (minutes) 17.0 End Study - Sheaths Sheaths Pulled By Sheath Hold Time (min) Rom Dobbins End Study - Patient Disposition Complications Transferred To Interventional Outcome No Airplane Pilot Holding successful
[2018-06-09] MEDS ORDERED: Misc Info for Pharmacy OTHER STA (15:10)
[2018-06-09] MEDS ORDERED: Tirofiban Inj 12,500 MCG/250 ML PLAST..BAG IV.CONT SCH (16:00)
--- NOTE | 2018-06-09 16:07 | MB ---
cc: Jonny Lawton MD DATE: 06/09/2018 REASON FOR CONSULTATION: Cardiac catheterization, unstable angina. HISTORY OF PRESENT ILLNESS: The patient is a 62-year-old white male, followed in our office by Dr. Scooby Nunez, with a history of coronary artery disease, diabetes, hypertension, who was doing fairly well up until about 2-3 weeks ago when he began to experience intermittent episodes of band-like chest "pressure" usually without associated shortness of breath, nausea, or diaphoresis. Some of the episodes have lasted as long as 2 hours. He feels as if the symptoms are similar to his previous angina. He denies lightheadedness, syncope, near syncope, palpitations, pedal edema, paroxysmal nocturnal dyspnea. PAST MEDICAL HISTORY: 1. Diabetes. 2. Hypertension. 3. Coronary artery disease status post bypass surgery 01/04/2015 with a left internal mammary artery to the LAD, vein graft to the posterior descending artery, vein graft to the obtuse marginal. He is also status post stent of the proximal vein graft to the posterior descending artery 08/05/[address] Rosales Gallardo, using a 2.5 x 22 mm Resolute Harsha stent. On 12/16/2017, he underwent angioplasty of stent restenosis in this vein graft to the posterior descending artery. 4. Hyperlipidemia. HOME CARDIAC MEDICATIONS: 1. Brilinta 90 mg b.i.d. 2. Atorvastatin 80 mg at bedtime. 3. Aspirin 81 mg daily. 4. Losartan 25 mg daily. 5. Imdur 30 mg daily. 6. Metoprolol tartrate 25 mg b.i.d. ALLERGIES: POLLEN. FAMILY HISTORY: Noncontributory. SOCIAL HISTORY: The patient is a former smoker. There is no history of alcohol abuse. REVIEW OF SYSTEMS: As in the history of present illness, otherwise negative or noncontributory. PHYSICAL EXAMINATION: VITAL SIGNS: Blood pressure 149/88 with a pulse of 65, respirations 20. GENERAL: He is a well-developed, well-nourished white male, in no acute distress. NECK: Jugular venous pressure is normal. Carotid pulses are 2+ bilaterally and without bruits. CHEST: Reveals clear lungs jiang. CARDIAC: He has a regular rhythm and rate without S3, S4, or murmur. ABDOMEN: He has a soft, nontender abdomen. Bowel sounds are present. There is no definite hepatosplenomegaly. EXTREMITIES: Reveals no clubbing, cyanosis, or edema. Peripheral pulses are normal throughout. LABORATORY DATA: EKG from 06/08/2018 shows sinus rhythm, anteroseptal infarct, age undetermined, right axis deviation, nonspecific T-wave the modalities. Chest x-ray shows no acute disease. LABORATORY DATA: Includes normal CBC, negative cardiac enzymes, normal basic metabolic profile, except for glucose 113. IMPRESSION: Symptoms consistent with unstable angina in a 62-year-old white male with a history of coronary artery disease, diabetes, hypertension, hyperlipidemia. Cardiac enzymes are negative for myocardial infarction. No diagnostic ST segment changes are seen on EKG. The patient does note his symptoms are exactly like his previous angina prior to his coronary artery bypass grafting surgery and prior to his vein graft stent. At this point, given the instability of his symptoms, I would agree with the need for cardiac catheterization. The nature of this procedure and potential risks have been outlined. He agrees to proceed. RECOMMENDATIONS: 1. Cardiac catheterization today. 2. Continue his usual home cardiac medications. MD LUIS FERNANDO Palacios/aj , 03:23 PM , 03:36 PM [place]
--- NOTE | 2018-06-09 16:17 | MP ---
cc: Jonny Lawton MD, Joshua A MD DATE OF OPERATION: 06/09/2018 PROCEDURE: Left heart catheterization, selective coronary and graft angiography, instant wave-free ratio (IFR) of the vein graft to the right coronary, angioplasty and stent of the obtuse marginal, angioplasty and stent of the left main. PROCEDURE NOTES: The patient was brought to the cardiac catheterization laboratory in a fasting state after having signed informed consent. The right groin was prepped and draped as per policy and anesthetized with 1% lidocaine. Arterial access was obtained via the right femoral artery and a 6-[place] sheath placed. Coronary arteriography was performed using 6-[place] left 4.0 and right Progressive catheters. The internal mammary artery was engaged with an SANDEEP catheter. The vein graft to the posterior descending artery was engaged with a multipurpose catheter. The stump to the stump of the vein graft to the obtuse marginal was engaged with the Progressive right catheter. Left ventriculography was not done. The aortic valve was crossed briefly with the Progressive right catheter demonstrating no significant transvalvular aortic gradient. CORONARY ARTERIOGRAPHY: The left main is a fairly large caliber vessel with smooth ostial to mid disease resulting in up to 55% stenosis. The left anterior descending is a moderate-sized vessel giving rise to a small diagonal, which has minimal luminal irregularities. In the proximal LAD, there is diffuse up to 20% disease. In the mid LAD, there is tubular 80% stenosis. Competitive flow is evident distally. There is a fairly large ramus intermedius, which has diffuse ostial to mid disease, which results in up to 50% stenosis. The left circumflex is a relatively small vessel giving rise to a medium sized branching obtuse marginal. In the proximal portion of this obtuse marginal, there is tubular 80% stenosis. The proximal left circumflex has diffuse up to 25% disease. The right coronary artery is a fairly large dominant vessel, which is diffusely diseased. There is likely up to 30% proximal disease, 40% mid disease. There appears to be 90% stenosis of the proximal posterior descending artery. The continuation of the right coronary, just after the takeoff of the posterior descending artery, has 60% stenosis. Of note, the vein graft may actually be anastomosed to a parallel branch, which arises more proximal to the posterior descending artery. GRAFT ANGIOGRAPHY: The vein graft to the obtuse marginal is totally occluded at its origin. The left internal mammary artery to the LAD is widely patent. In the mid LAD, just distal to the anastomosis site, there is 60% stenosis. The very distal transapical LAD has 80% to 90% stenosis. The vein graft to the posterior descending artery demonstrates a stent from its ostial to proximal portion. There is possibly up to 50% restenosis of the stent diffusely. LEFT VENTRICULOGRAPHY: not done. INSTANT WAVE-FREE RATIO DETERMINATION: Adequate heparin was given to achieve an ACT of 318 seconds. Using a 6-[place] multipurpose guiding catheter, the ostium of the vein graft to the posterior descending artery was reengaged. After normalization of the pressure wire inside the aortic root, the pressure wire was advanced distal to the stent. The IFR was measured at 0.98. PERCUTANEOUS CORONARY INTERVENTION DESCRIPTION: Aggrastat was also started as per protocol. Using a 6-[place] XB 3.5 guiding catheter, the ostium of the left main was reengaged. Using a 0.014 [place] guidewire, the disease in the obtuse marginal was crossed without difficulty and the tip of the wire positioned distally. Predilation was done using a 2.5 x 15 mm E[place] balloon catheter. At this point, we were unable to advance a 2.5 mm Resolute [place] stent. Further predilation was done at the proximal bend of this obtuse marginal. With some difficulty, a 2.5 x 22 mm Resolute [place] stent was advanced to satisfactory position in the obtuse marginal and then deployed at 17 atmospheres for approximately 30 seconds. Final angiography shows overall good results with reduction of the initial stenosis to roughly 0% residual with no definite evidence of dissection or distal embolization. Then, predilation of the left main disease was done using a 3.5 mm E[place] balloon catheter and then a noncompliant 3.75 mm Euphora. Stenting was then done using a 4.0 x 8 mm Resolute [place] stent, which was further postdilated with a 4.0 mm noncompliant [place] balloon catheter, which was inflated to as high as 18 atmospheres (approximately 4.2 mm) along the length of the stent. Final angiography shows overall satisfactory results with reduction of the left main disease to roughly 10% residual with no definite evidence for dissection or distal embolization. The patient tolerated the procedure well. There were no apparent, immediate complications. CONCLUSIONS: 1. Severe 3-vessel [place] coronary artery disease. 2. Right dominant system. 3. Chronically occluded vein graft to the obtuse marginal. 4. Widely patent left internal mammary artery to the LAD, although the [place] LAD distal to the anastomosis site has [id number] disease. 5. Moderate restenosis of the stent in the ostial to proximal portion of the vein graft to the posterior descending artery with IFR measurement showing the absence of hemodynamically significant disease. 6. Status post angioplasty and stent of the obtuse marginal and angioplasty and stent of the left main. Jonny Lawton MD GHGuy/ts , 03:03 PM , 03:16 PM MTDD
[2018-06-09] MEDS ORDERED: Temazepam 15 MG Capsule PO PRN (21:00)
[2018-06-09] MEDS: Acetaminophen 500 MG Tablet PO PRN (21:05)
--- NOTE | 2018-06-09 21:09 | ECG ---
Date Performed: 06/08/2018 Time Performed: 22:30:27 PTAGE: 62 years EKG: Sinus rhythm WITH FIRST DEGREE AV BLOCK MARKED RIGHT AXIS DEVIATION ANTERIOR MYOCARDIAL INFARCTION ABNORMAL ECG PREVIOUS TRACING : 06/08/2018 17.00 Since the previous tracing, no significant change noted DOCTOR: Brittaney Sena Interpretating Date/Time 06/09/2018 21:08:36
[2018-06-10] MEDS: Sod Chloride 0.9% Inj 1,000 ML IV.CONT SCH ×2 (01:10→05:49)
[2018-06-10 04:02] VITALS: RESP 18
[2018-06-10 05:10] LABS: Baso # (Auto) 0.1 th/mm3 (0.0-0.2); Baso % (Auto) 1.3 % (0.0-2.0); Eos # (Auto) 0.3 th/mm3 (0.0-0.4); Hematocrit 41.5 % (39.0-51.0); Hemoglobin 14.1 gm/dL (13.0-17.0); Lymph # (Auto) 1.2 th/mm3 (1.0-4.8); Lymph % (Auto) 15.8 % (9.0-44.0); Mean Corpuscular Volume 85.5 fL (80.0-100.0); Mean Platelet Volume 8.2 fL (7.0-11.0); Mono # (Auto) 0.6 th/mm3 (0.0-0.9); Mono % (Auto) 8.6 % (0.0-8.0); Neut # (Auto) 5.2 th/mm3 (1.8-7.7); Neut % (Auto) 70.3 % (16.0-70.0); Platelet Count 207 th/mm3 (150-450); Red Blood Count 4.85 mil/mm3 (4.50-5.90); Red Cell Distribution Width 15.2 % (11.6-17.2); White Blood Count 7.4 th/mm3 (4.0-11.0)
[2018-06-10 05:35] LABS: Anion Gap 6 meq/L (5-15); Blood Urea Nitrogen 16 mg/dL (7-18); Calcium 8.2 mg/dL (8.5-10.1); Carbon Dioxide 28.3 meq/L (21.0-32.0); Chloride 105 meq/L (98-107); Cholesterol 94 mg/dL (120-200); Glomerular Filtration Rate Greater Than 89 mL/min (>89); Glucose,Random 84 mg/dL (74-106); Potassium 4.3 meq/L (3.5-5.1); Sodium 139 meq/L (136-145); Triglycerides 69 mg/dL (42-150)
[2018-06-10 05:37] LABS: Chol/HDL Ratio 1.99 Ratio; HDL Cholesterol 47.2 mg/dL (40.0-60.0); LDL Cholesterol,Calculated 33 mg/dL (0-99)
[2018-06-10 05:40] LABS: Creatine Kinase 93 U/L (39-308)
--- NOTE | 2018-06-10 07:24 | P.PNCA ---
Subjective Interval history: No dyspnea, CP, groin pain, palpitations. Medications and Allergies Active Medications: Active Medications Acetaminophen (Tylenol) 500 mg PO Q6H PRN PRN Reason: Headache or Pain 1-2 Last Admin: 06/09/18 21:05 Dose: 500 mg Al Hydroxide/Mg Hydroxide (Milk Of Magnesia Liq) 30 ml PO Q12H PRN PRN Reason: Mild Constipation Aspirin (Aspirin Chew) 81 mg PO DAILY [facility] Atorvastatin Calcium (Lipitor) 80 mg PO HS [facility] Last Admin: 06/09/18 21:06 Dose: 80 mg Dextrose (D50w Vial) 50 ml IV.PUSH UNSCH PRN PRN Reason: PER HYPOGLYCEMIA PROTOCOL Diphenhydramine HCl (Benadryl) 50 mg PO CREDIT RISK MANAGEMENT DIRECTOR [facility] Stop: 06/13/18 09:14 Fentanyl Citrate (Fentanyl Inj) 50 mcg IV.PUSH CREDIT RISK MANAGEMENT DIRECTOR [facility] Stop: 06/13/18 09:14 Glucagon (Glucagon Inj) 1 mg OTHER PRN PRN PRN Reason: for Hypoglycemia Protocol Sodium Chloride (Ns Inj) 1,000 mls @ 100 mls/hr IV.CONT .Q10H [facility] Last Admin: 06/10/18 05:49 Dose: Not Given Tirofiban/Sodium Chloride (Aggrastat Inj) 12,500 mcg in 250 mls @ 0 mls/hr IV.CONT .Q0M [facility]; Protocol Stop: 06/10/18 10:00 Last Admin: 06/10/18 02:53 Dose: 0.15 mcg/kg/min, 16.02 mls/hr Insulin Aspart (Novolog Insulin Correctional Sugar Inj) 0 unit SQ ACHS [facility]; Protocol Last Admin: 06/09/18 21:17 Dose: 1 unit Isosorbide Mononitrate (Imdur) 30 mg PO DAILY [facility] Last Admin: 06/09/18 08:48 Dose: 30 mg Levothyroxine Sodium (Synthroid) 25 mcg PO DAILY@0600 [facility] Last Admin: 06/10/18 05:51 Dose: 25 mcg Losartan Potassium (Cozaar) 25 mg PO DAILY [facility] Last Admin: 06/09/18 08:49 Dose: 25 mg Metoprolol Tartrate (Lopressor) 25 mg PO BID [facility] Last Admin: 06/09/18 21:05 Dose: 25 mg Midazolam HCl (Versed Inj) 1 mg IV.PUSH CREDIT RISK MANAGEMENT DIRECTOR [facility] Stop: 06/13/18 09:14 Montelukast Sodium (Singulair) 10 mg PO DAILY [facility] Last Admin: 06/09/18 08:49 Dose: 10 mg Morphine Sulfate (Morphine Inj) 2 mg IV.PUSH Q4H PRN PRN Reason: Pain 3 to 6 Morphine Sulfate (Morphine Inj) 4 mg IV.PUSH Q4H PRN PRN Reason: Pain 7 to 10 Nitroglycerin (Nitrostat Sl) 0.4 mg SL Q5M PRN PRN Reason: PAIN 1-10 AND/OR FEVER >101F Last Admin: 06/08/18 11:51 Dose: 0.4 mg Ondansetron HCl (Zofran Inj) 4 mg IV.PUSH Q6H PRN PRN Reason: NAUSEA OR VOMITING Sodium Chloride (Ns Flush) 2 ml IV.FLUSH BID [facility] Last Admin: 06/09/18 21:06 Dose: Not Given Sodium Chloride (Ns Flush) 2 ml IV.FLUSH PRN PRN PRN Reason: FLUSH AFTER USING IV ACCESS Temazepam (Restoril) 15 mg PO HS PRN PRN Reason: SLEEP Ticagrelor (Brilinta) 90 mg PO BID [facility] Last Admin: 06/09/18 21:05 Dose: 90 mg Allergies Allergy/AdvReac Type Severity Reaction Status Date / Time pollen extracts Allergy Intermediate Sneezing Verified 06/08/18 11:09 Home Medications Medication Instructions Recorded Confirmed Type aspirin 81 mg PO DAILY 06/08/18 06/08/18 History atorvastatin 80 mg PO HS 06/08/18 06/08/18 History dulaglutide [Trulicity] 1.5 mg SUBCUT QWEEK 06/08/18 06/08/18 History empagliflozin [Jardiance] 25 mg PO DAILY 06/08/18 06/08/18 History isosorbide mononitrate 30 mg PO DAILY 06/08/18 06/08/18 History levothyroxine See Label Instructions .ROUTE 06/08/18 06/08/18 History .COMPLEX losartan 25 mg PO DAILY 06/08/18 06/08/18 History metoprolol tartrate 25 mg PO BID 06/08/18 06/08/18 History montelukast 10 mg PO DAILY 06/08/18 06/08/18 History sitagliptin-metformin [Janumet] 2 tab PO DAILY 06/08/18 06/08/18 History ticagrelor [Brilinta] 2 tab PO DAILY 06/08/18 06/08/18 History Physical Exam Vital signs: Vital Signs 06/09/18 08:00 06/09/18 15:18 06/09/18 17:12 Temperature 96.5 F L Pulse Rate 65 64 Respiratory Rate 20 Blood Pressure 149/88 H Pulse Oximetry 100 91 L 06/09/18 18:00 06/09/18 19:00 06/09/18 20:00 Temperature 97.8 F Pulse Rate 67 75 73 Respiratory Rate 18 Blood Pressure 131/96 H Pulse Oximetry 98 100 06/09/18 21:00 06/09/18 21:48 06/09/18 22:00 Temperature Pulse Rate 76 73 Respiratory Rate 18 Blood Pressure Pulse Oximetry 06/09/18 23:00 06/10/18 00:00 06/10/18 01:00 Temperature 98.2 F Pulse Rate 68 70 85 Respiratory Rate 16 Blood Pressure 122/71 Pulse Oximetry 98 06/10/18 02:00 06/10/18 03:00 06/10/18 04:00 Temperature 98.0 F Pulse Rate 66 64 65 Respiratory Rate 18 Blood Pressure 133/71 Pulse Oximetry 98 06/10/18 05:00 06/10/18 06:00 Temperature Pulse Rate 69 65 Respiratory Rate Blood Pressure Pulse Oximetry Intake & Output 06/09/18 06/10/18 06/10/18 18:59 06:59 18:59 Intake Total 700 / 700 1690 / 1690 Output Total 600 / 600 1200 / 1200 Balance 100 / 100 490 / 490 Weight 89.5 kg Intake: IV 1450 / 1450 NS Inj 1,000 ML @ 100 mls/hr IV 1200 / 1200 .CONT .Q10H [facility] Rx#:[id number] Oral 500 / 500 240 / 240 Anesthesia Amount 200 / 200 Output: Urine 600 / 600 1200 / 1200 Other: Date of Last Bowel Movement 06/07/18 - Constitutional no acute distress - Routine Neck Exam Absent: JVD - Routine Respiratory Exam Present: CTA bilaterally - Routine Cardiovascular Exam Present: RRR, S1, S2. Absent: murmur, gallop - Routine Abdominal Exam Present: soft, normoactive bowel sounds. Absent: tenderness, organomegaly - Routine Extremities Exam Absent: cyanosis, clubbing, edema Comments: Right groin nontender, no hematoma. Results 06/10/18 04:46 06/10/18 04:46 Cardiac Enzymes 06/08/18 06/08/18 06/08/18 Range/Units 11:10 17:05 22:40 AST 35 (15-37) U/L Troponin I Less than 0.02 L Less than 0.02 L Less than 0.02 L (0.02-0.05) ng/mL Lipids 06/10/18 Range/Units 04:46 Triglycerides 69 (42-150) mg/dL Cholesterol 94 L (120-200) mg/dL HDL Cholesterol 47.2 (40.0-60.0) mg/dL Cholesterol/HDL Ratio 1.99 Ratio CBC 06/08/18 06/10/18 Range/Units 11:10 04:46 WBC 8.5 7.4 (4.0-11.0) th/mm3 RBC 5.08 4.85 (4.50-5.90) mil/mm3 Hgb 14.6 14.1 (13.0-17.0) gm/dL Hct 44.0 41.5 (39.0-51.0) % Plt Count 253 207 (150-450) th/mm3 Neut # (Auto) 5.9 5.2 (1.8-7.7) th/mm3 Lymph # (Auto) 1.6 1.2 (1.0-4.8) th/mm3 [place] # (Auto) 0.6 0.6 (0.0-0.9) th/mm3 Eos # (Auto) 0.3 0.3 (0.0-0.4) th/mm3 Baso # (Auto) 0.1 0.1 (0.0-0.2) th/mm3 Comprehensive Metabolic Panel 06/08/18 06/10/18 Range/Units 11:10 04:46 Sodium 144 139 (136-145) meq/L Potassium 4.1 4.3 (3.5-5.1) meq/L Chloride 107 105 (98-107) meq/L Carbon Dioxide 26.7 28.3 (21.0-32.0) meq/L BUN 15 16 (7-18) mg/dL Creatinine 1.10 0.83 (0.60-1.30) mg/dL Calcium 8.5 8.2 L (8.5-10.1) mg/dL AST 35 (15-37) U/L ALT 38 (12-78) U/L Alkaline Phosphatase 77 (45-117) U/L Total Protein 7.4 (6.4-8.2) g/dL Albumin 3.9 (3.4-5.0) g/dL Intake and Output 06/09/18 06/10/18 06/10/18 22:59 06:59 14:59 Intake Total 1700 / 1700 690 / 690 Output Total 600 / 600 1200 / 1200 Balance 1100 / 1100 -510 / -510 Intake: IV 1000 / 1000 450 / 450 NS Inj 1,000 ML @ 100 mls/hr IV 1000 / 1000 200 / 200 .CONT .Q10H [facility] Rx#:[id number] Oral 500 / 500 240 / 240 Anesthesia Amount 200 / 200 Output: Urine 600 / 600 1200 / 1200 Other: Date of Last Bowel Movement 06/07/18 06/07/18 Weight 89.5 kg - Imaging and Cardiology Imaging: Impressions Chest X-Ray 06/08/18 11:10 CONCLUSION: No acute cardiopulmonary disease. Assessment and Plan - Assessment (1) Coronary artery disease Code(s): I25.10 - Atherosclerotic heart disease of [place] coronary artery without angina pectoris Status: Chronic Plan: Stable status post IFR measurement of vein graft to PDA confirming absence of hemodynamically significant disease, status post stent of left main and stent of obtuse marginal. No further CP. Groin stable. AM labs OK. Can discharge home today, same home medications including Brilinta/baby aspirin, 3-4 week f/u with Dr. Nunez. (2) Hypertension Code(s): I10 - Essential (primary) hypertension Status: Chronic Plan: Stable. Mostly normotensive. (3) Hyperlipidemia Code(s): E78.5 - Hyperlipidemia, unspecified Status: Chronic Plan: Good lipid profile this admission. Continue atorvastatin as taken at home. - Plan Code Status: full code Discussed Condition With: patient (1) Coronary artery disease Qualifiers: Coronary Disease-Associated Artery/Lesion type: [place] artery [place] vs. transplanted heart: [place] heart Associated angina: with unstable angina Qualified Code(s): I25.110 - Atherosclerotic heart disease of [place] coronary artery with unstable angina pectoris (2) Hypertension Qualifiers: Hypertension type: essential hypertension Qualified Code(s): I10 - Essential (primary) hypertension (3) Hyperlipidemia Qualifiers: Hyperlipidemia type: mixed hyperlipidemia Qualified Code(s): E78.2 - Mixed hyperlipidemia
[2018-06-10] MEDS: Metoprolol Tartrate 25 MG Tablet PO SCH (09:33)
[2018-06-10] MEDS: Montelukast 10 MG Tablet PO SCH (09:34)
[2018-06-10] MEDS: Isosorbide Mononitrate 30 MG ER 24HR Tablet (Imdur) PO SCH (09:34)
[2018-06-10] MEDS: Insulin NovoLOG Aspart Correctional Sugar Inj SQ SCH (09:36)
[2018-06-10 11:12] VITALS: O2SAT 97
[2018-06-10 11:15] VITALS: BP 133/79; TEMP 97.9
[2018-06-10 11:17] VITALS: PULSE 72
--- NOTE | 2018-06-10 11:57 | P.PNIM ---
Subjective Interval history: The patient was resting comfortably in bed. He was looking forward to going home. He had no acute complaints. He denies chest pain or shortness of breath. Discussed with nursing. Physical Exam Vital signs: Vital Signs 06/09/18 15:18 06/09/18 17:12 06/09/18 18:00 Temperature Pulse Rate 64 67 Respiratory Rate Blood Pressure Pulse Oximetry 91 L 06/09/18 19:00 06/09/18 20:00 06/09/18 21:00 Temperature 97.8 F Pulse Rate 75 73 76 Respiratory Rate 18 Blood Pressure 131/96 H Pulse Oximetry 98 100 06/09/18 21:48 06/09/18 22:00 06/09/18 23:00 Temperature Pulse Rate 73 68 Respiratory Rate 18 Blood Pressure Pulse Oximetry 06/10/18 00:00 06/10/18 01:00 06/10/18 02:00 Temperature 98.2 F Pulse Rate 70 85 66 Respiratory Rate 16 Blood Pressure 122/71 Pulse Oximetry 98 06/10/18 03:00 06/10/18 04:00 06/10/18 05:00 Temperature 98.0 F Pulse Rate 64 65 69 Respiratory Rate 18 Blood Pressure 133/71 Pulse Oximetry 98 06/10/18 06:00 06/10/18 07:00 06/10/18 08:00 Temperature 97.9 F Pulse Rate 65 72 76 Respiratory Rate 18 Blood Pressure 133/79 Pulse Oximetry 97 97 06/10/18 09:00 06/10/18 10:00 06/10/18 11:00 Temperature Pulse Rate 78 77 72 Respiratory Rate Blood Pressure Pulse Oximetry Intake & Output 06/09/18 06/10/18 06/10/18 18:59 06:59 18:59 Intake Total 700 / 700 1690 / 1690 3250 / 3250 Output Total 600 / 600 1200 / 1200 Balance 100 / 100 490 / 490 3250 / 3250 Weight 89.5 kg Intake: IV 1450 / 1450 3250 / 3250 NS Inj 1,000 ML @ 100 mls/hr IV 1200 / 1200 1000 / 1000 .CONT .Q10H [facility] Rx#:[id number] Aggrastat Inj 12,500 mcg In 250 250 / 250 ml @ Per Protocol IV.CONT .Q0M [facility] Rx#:[id number] Oral 500 / 500 240 / 240 Anesthesia Amount 200 / 200 Output: Urine 600 / 600 1200 / 1200 Other: Date of Last Bowel Movement 06/07/18 Narrative: GENERAL: NAD CARDIOVASCULAR: Regular rate and rhythm without murmurs, gallops, or rubs. RESPIRATORY: Breath sounds equal bilaterally. No accessory muscle use. GASTROINTESTINAL: Abdomen soft, non-tender, nondistended. MUSCULOSKELETAL: No cyanosis, or edema. SKIN: Warm and dry. NEURO: No focal neurological deficits. Results - Labs CBC & Chem 7: 06/10/18 04:46 06/10/18 04:46 Laboratory Results - last 24 hr 06/09/18 06/09/18 06/09/18 15:25 15:55 21:13 WBC RBC Hgb Hct MCV MCH MCHC RDW Plt Count MPV Neut % (Auto) Lymph % (Auto) [place] % (Auto) Eos % (Auto) Baso % (Auto) Neut # (Auto) Lymph # (Auto) [place] # (Auto) Eos # (Auto) Baso # (Auto) WBC Differential Differential Comment Sodium Potassium Chloride Carbon Dioxide Anion Gap BUN Creatinine Estimated GFR POC Glucose 69 76 174 H Random Glucose Calcium Total Creatine Kinase Triglycerides Cholesterol LDL Cholesterol, Calc HDL Cholesterol Cholesterol/HDL Ratio 06/10/18 06/10/18 04:46 04:46 WBC 7.4 RBC 4.85 Hgb 14.1 Hct 41.5 MCV 85.5 MCH 29.0 MCHC 34.0 RDW 15.2 Plt Count 207 MPV 8.2 Neut % (Auto) 70.3 H Lymph % (Auto) 15.8 [place] % (Auto) 8.6 H Eos % (Auto) 4.0 Baso % (Auto) 1.3 Neut # (Auto) 5.2 Lymph # (Auto) 1.2 [place] # (Auto) 0.6 Eos # (Auto) 0.3 Baso # (Auto) 0.1 WBC Differential . Differential Comment Auto diff final Sodium 139 Potassium 4.3 Chloride 105 Carbon Dioxide 28.3 Anion Gap 6 BUN 16 Creatinine 0.83 Estimated GFR Greater than 89 POC Glucose Random Glucose 84 Calcium 8.2 L Total Creatine Kinase 93 Triglycerides 69 Cholesterol 94 L LDL Cholesterol, Calc 33 HDL Cholesterol 47.2 Cholesterol/HDL Ratio 1.99 Assessment and Plan - Assessment (1) Chest pain Code(s): R07.9 - Chest pain, unspecified Status: Acute (2) Coronary artery disease Code(s): I25.10 - Atherosclerotic heart disease of [place] coronary artery without angina pectoris Status: Chronic - Plan 62-year-old male admitted secondary to acute chest pain Chest pain CAD Hx of CABG Hx of Coronary Stent Patient ruled out for [place]. Discussed with cardiology, transferred to [facility] for cardiac catheterization: Severe 3-vessel [place] coronary artery disease; Chronically occluded vein graft to the obtuse marginal; Widely patent left internal mammary artery to the LAD, although the [place] LAD distal to the anastomosis site has [id number] disease; Moderate restenosis of the stent in the ostial to proximal portion of the vein graft to the posterior descending artery with IFR measurement showing the absence of hemodynamically significant disease; Status post angioplasty and stent of the obtuse marginal and angioplasty and stent of the left main. -continue cardiac regimen. -outpt follow-up with cardiology. Cleared for discharge. Hypertension Continue baseline treatment Follow blood pressures Adjust treatments as needed Hyperlipidemia Continue present treatment Follow as an outpatient Diabetes mellitus type 2 Follow blood sugars Insulin sliding scale Diabetic diet DVT prophylaxis Heparin (2) Coronary artery disease Qualifiers: Coronary Disease-Associated Artery/Lesion type: [place] artery [place] vs. transplanted heart: [place] heart Associated angina: with unstable angina Qualified Code(s): I25.110 - Atherosclerotic heart disease of [place] coronary artery with unstable angina pectoris
--- NOTE | 2018-06-10 15:35 | ECG ---
Date Performed: 06/09/2018 Time Performed: 15:50:20 PTAGE: 62 years EKG: Sinus rhythm . Rightward axis Anteroseptal infarct - age undetermined Possible lateral infarct - age undetermined Abnormal ECG PREVIOUS TRACING : 06/08/2018 22.30 Since the previous tracing, no significant change noted DOCTOR: Danielle Goodwin Interpretating Date/Time 06/10/2018 15:34:34
== END 2018-06-10 12:30 | disposition home or self-care (01) ==
LOC: PHEDA 10:58 → PHED 10:58 → PH3 14:05 → HCIS 06-09 08:58
PROVIDERS: ADMIT Hospitalist; ATTEND Hospitalist